=== PATIENT | male | born 1975 | race Caucasian/White ===

== ENCOUNTER 2020-09-02 12:25 | Outpatient (REF) | payer MEDICAID, SELFPAY ==
[2020-09-02 13:22] LABS: MANUAL DIFF FLAG NO
[2020-09-02 13:23] LABS: Basophils Absolute Auto 0.1 X10*3/uL (0.0-0.2); Eosinophils Absolute Auto 0.3 X10*3/uL (0.0-0.4); Eosinophils Percent Auto 3.7 % (0-4); Hematocrit 46.3 % (42-52); Hemoglobin 15.7 g/dl (14.0-18.0); Imm Gran Abs Auto 0.06 X10*3/uL (0.00-0.03); Imm Gran Pct Auto 0.7 % (0.0-0.4); Lymphocytes Absolute Auto 1.2 X10*3/uL (1.2-4.9); Mean Corpuscular HGB Conc 33.9 g/dl (31.0-36.0); Mean Corpuscular Hemoglobin 29.3 pg (27.0-33.0); Mean Corpuscular Volume 86.4 fL (80-98); Mean Platelet Volume 10.2 fL (9.4-12.4); Monocytes Absolute Auto 0.6 X10*3/uL (0.1-1.2); Monocytes Percent Auto 7.2 % (2-11); Neutrophils Absolute Auto 5.9 X10*3/uL (2.0-8.3); Neutrophils Percent Auto 72.4 % (45-73); Platelet Count 323 X10*3/uL (160-400); Red Blood Count 5.36 X10*6/uL (4.60-5.80); Red Cell Distribution Width 12.8 % (11.0-16.0); White Blood Count 8.1 X10*3/uL (4.8-10.8)
[2020-09-02 13:37] LABS: Estimated Average Glucose 100 mg/dL; Hemoglobin A1C 130.0787 umol/L; Hemoglobin A1c % 5.1 %
[2020-09-02 13:55] LABS: Alanine Aminotransferase 32 U/L (0-40); Albumin Level 4.5 g/dL (3.5-5.0); Alkaline Phosphatase 86 U/L (39-117); Anion Gap 18 (12-20); Aspartate Amino Transferase 25 U/L (5-37); Blood Urea Nitrogen 23 mg/dL (9-16); Calcium 9.8 mg/dL (8.4-10.2); Carbon Dioxide 26 mmol/L (22-29); Chloride 102 mmol/L (96-108); Estimated Glomerular Filt Rate > 60; Glucose Random 97 mg/dL (60-115); Potassium 4.1 mmol/L (3.3-5.1); Sodium 142 mmol/L (135-145); Total Protein 7.6 g/dL (6.5-8.0)
== END 2020-09-02 12:26 | disposition home or self-care (01) ==
LOC: HO.10HDL 12:25
PROVIDERS: Visit Provider Internal Medicine
DX: E84.9 Cystic fibrosis, unspecified (principal); I10 Essential (primary) hypertension; R73.03 Prediabetes
CPT/HCPCS: 36415; 80053; 83036; 85025

== ENCOUNTER 2020-09-24 16:05 | Outpatient (REF) | payer MEDICAID, SELFPAY ==
[2020-09-24 17:09] LABS: Anion Gap 13 (12-20); Blood Urea Nitrogen 25 mg/dL (9-16); C Reactive Protein 2.96 mg/dL (< or = 0.50); Calcium 9.3 mg/dL (8.4-10.2); Carbon Dioxide 29 mmol/L (22-29); Chloride 104 mmol/L (96-108); Estimated Glomerular Filt Rate > 60; Glucose Random 113 mg/dL (60-115); Potassium 3.6 mmol/L (3.3-5.1); Sodium 142 mmol/L (135-145)
[2020-09-24 17:22] LABS: Uric Acid 9.1 mg/dL (3.4-7.0)
[2020-09-24 17:23] LABS: Erythrocyte Sedimentation Rate 23 MM/HR (0-15)
[2020-09-24 17:29] LABS: Vitamin D 25-OH Total 42.7 ng/mL (>30)
== END 2020-09-24 16:06 | disposition home or self-care (01) ==
LOC: HO.LAB 16:05
PROVIDERS: PCP Internal Medicine; Visit Provider Internal Medicine
DX: M25.521 Pain in right elbow (principal); M25.421 Effusion, right elbow; I10 Essential (primary) hypertension; E55.9 Vitamin D deficiency, unspecified; Z87.39 Personal history of other diseases of the musculoskeletal system and connective tissue
CPT/HCPCS: 36415; 80048; 82306; 84550; 85652; 86140

== ENCOUNTER 2022-09-02 16:13 | Outpatient (REF) | payer MEDICAID, SELFPAY ==
--- NOTE | ~2022-09-02 | XR_ITS ---
EXAMINATION: XR SHOULDER, LEFT CLINICAL INFORMATION: Pain COMPARISON: None available. TECHNIQUE: AP external rotation, Grashey, scapular Y, and axillary views of the left shoulder. FINDINGS: Bone alignment is normal. No fracture or dislocation. Normal joint spaces. Small undersurface acromial osteophyte. Mild degenerative changes of the greater tuberosity. Normal soft tissues. XR/XR shoulder LT min 2V IMPRESSION: Small undersurface acromial osteophyte and degenerative changes of the greater tuberosity.
== END 2022-09-02 16:14 | disposition home or self-care (01) ==
LOC: HO.XRAY 16:13
PROVIDERS: Visit Provider Internal Medicine
DX: M25.512 Pain in left shoulder (principal)
CPT/HCPCS: 73030

== ENCOUNTER 2022-09-16 16:48 | Outpatient (REF) | payer MEDICAID, SELFPAY ==
[2022-09-16 17:06] LABS: MANUAL DIFF FLAG NO
[2022-09-16 18:04] LABS: Basophils Absolute Auto 0.1 X10*3/uL (0.0-0.2); Basophils Percent Auto 0.6 % (0-2); Eosinophils Absolute Auto 0.2 X10*3/uL (0.0-0.4); Eosinophils Percent Auto 1.1 % (0-4); Hematocrit 47.1 % (42.0-52.0); Hemoglobin 15.7 g/dl (14.0-18.0); Imm Gran Abs Auto 0.07 X10*3/uL (0.00-0.03); Imm Gran Pct Auto 0.5 % (0.0-0.4); Lymphocytes Absolute Auto 0.8 X10*3/uL (1.2-4.9); Lymphocytes Percent Auto 5.9 % (20-40); Mean Corpuscular HGB Conc 33.3 g/dl (31.0-36.0); Mean Corpuscular Hemoglobin 28.9 pg (27.0-33.0); Mean Corpuscular Volume 86.6 fL (80.0-98.0); Mean Platelet Volume 10.1 fL (9.4-12.4); Monocytes Absolute Auto 0.9 X10*3/uL (0.1-1.2); Monocytes Percent Auto 6.6 % (2-11); Neutrophils Absolute Auto 11.9 x10*3/uL (2.0-8.3); Neutrophils Percent Auto 85.3 % (45-73); Platelet Count 263 X10*3/uL (160-400); Red Blood Count 5.44 X10*6/uL (4.60-5.80); Red Cell Distribution Width 12.9 % (11.0-16.0)
[2022-09-16 18:34] LABS: B Type Natriuretic Peptide 24 pg/mL (<100)
[2022-09-16 18:35] LABS: Alanine Aminotransferase 37 U/L (0-40); Albumin Level 4.1 g/dL (3.5-5.0); Alkaline Phosphatase 88 U/L (39-117); Anion Gap 16 (12-20); Aspartate Amino Transferase 22 U/L (5-37); Bilirubin Total 1.3 mg/dL (0.0-1.0); Blood Urea Nitrogen 20 mg/dL (9-16); C Reactive Protein 1.24 mg/dL (< or = 0.50); Calcium 9.4 mg/dL (8.4-10.2); Carbon Dioxide 25 mmol/L (22-29); Chloride 103 mmol/L (96-108); Estimated Glomerular Filt Rate > 60; Glucose Random 92 mg/dL (60-115); Potassium 3.8 mmol/L (3.3-5.1); Sodium 140 mmol/L (135-145); Total Protein 6.8 g/dL (6.5-8.0); Troponin-I High Sensitivity 14.6 ng/L (<3.5-35.0)
[2022-09-16 18:57] LABS: Free T4 (Free Thyroxine) 1.14 ng/dL (0.71-1.85); Thyroid Stimulating Hormone 1.47 uIU/mL (0.32-4.0); Vitamin B12 1217 pg/mL (200-900)
== END 2022-09-16 16:49 | disposition home or self-care (01) ==
LOC: HO.LAB 16:48
PROVIDERS: PCP Internal Medicine; Visit Provider Internal Medicine
DX: I10 Essential (primary) hypertension (principal); R53.83 Other fatigue
CPT/HCPCS: 36415; 80053; 82607; 83880; 84439; 84443; 84484; 85025; 86140

== ENCOUNTER → 2022-10-26 12:03 | Outpatient (BNVA) | payer MEDICAID, SELFPAY | PROVIDERS: PCP Internal Medicine; Visit Provider Physician Assistant | DX: M75.82 Other shoulder lesions, left shoulder (principal) | CPT/HCPCS: 99202 ==

== ENCOUNTER 2023-12-13 14:18 | Outpatient (REF) | payer MEDICAID, SELFPAY ==
--- NOTE | ~2023-12-13 | XR_ITS ---
EXAMINATION: XR CHEST CLINICAL INFORMATION: Cough. Pneumonia. COMPARISON: 03/07/2018 TECHNIQUE: 2 views of the chest were obtained. FINDINGS: Lungs hyperaerated. Heart size normal with normal caliber pulmonary vessels. Prominent but somewhat chronic appearing interstitial markings are noted. There may be an element of bronchial wall thickening or bronchiectasis present but overall, given differences in technique, no significant change. No acute consolidations. XR/XR chest 2V IMPRESSION: Changes observed. No active disease.
[2023-12-13 15:32] LABS: Influenza A PCR NEGATIVE (Negative); Influenza B PCR NEGATIVE (Negative); Resp Syncy Virus RNA Qual PCR NEGATIVE (Negative); SARS COV2 PCR INHOUSE NEGATIVE (Negative)
== END 2023-12-13 14:19 | disposition home or self-care (01) ==
LOC: HO.LAB 14:18
PROVIDERS: PCP Internal Medicine; Visit Provider Internal Medicine
DX: R05.9 Cough, unspecified (principal); R09.81 Nasal congestion
CPT/HCPCS: 0241U; 71046

== ENCOUNTER 2024-11-18 14:41 | Emergency (ER) | payer MEDICAID, SELFPAY ==
--- NOTE | ~2024-11-18 | XR_ITS ---
EXAMINATION: XR HAND 1-2 VIEWS RIGHT HISTORY: pain, swelling COMPARISON: There are no prior studies available for comparison. FINDINGS: Three views of the right hand are submitted. Osseous mineralization is normal. There is no fracture or dislocation. The joint spaces are preserved. There is diffuse soft tissue swelling. XR/XR hand RT 2V IMPRESSION: Diffuse soft tissues on. No osseous abnormality is identified. Electronically signed by: John Mcknight MD 11/18/2024 03:29 PM EDT
[2024-11-18 14:44] VITALS: BP 197/121; PULSE 104; RESP 16; TEMP 36.8; O2SAT 96; BMI 29.9
[2024-11-18 15:07] LABS: MANUAL DIFF FLAG NO
[2024-11-18 15:12] LABS: Hematocrit 40.6 % (42.0-52.0); Hemoglobin 14.5 g/dl (14.0-18.0); Imm Gran Abs Auto 0.04 X10*3/uL (0.00-0.03); Imm Gran Pct Auto 0.3 % (0.0-0.4); Lymphocytes Absolute Auto 0.9 X10*3/uL (1.2-4.9); Mean Corpuscular HGB Conc 35.7 g/dl (31.0-36.0); Mean Corpuscular Hemoglobin 29.5 pg (27.0-33.0); Mean Corpuscular Volume 82.5 fL (80.0-98.0); NRBC Abs Auto 0.000 X10*3/uL (0.0-0.012); NRBC Pct Auto 0.0 /100WBC (0.0-0.2); Platelet Count 251 X10*3/uL (160-400); Red Blood Count 4.92 X10*6/uL (4.60-5.80); White Blood Count 12.0 X10*3/uL (4.8-10.8)
[2024-11-18 15:29] LABS: Alanine Aminotransferase 24 U/L (0-40); Albumin Level 4.2 g/dL (3.5-5.0); Alkaline Phosphatase 77 U/L (39-117); Anion Gap 14 (12-20); Aspartate Amino Transferase 26 U/L (5-37); Blood Urea Nitrogen 20 mg/dL (9-16); Calcium 9.0 mg/dL (8.4-10.2); Carbon Dioxide 26 mmol/L (22-29); Chloride 102 mmol/L (96-108); Creatinine Clr Calc Pharmacy 63.4; Estimated Glomerular Filt Rate 54; Potassium 3.3 mmol/L (3.3-5.1); Sodium 139 mmol/L (135-145); Total Protein 6.9 g/dL (6.5-8.0); Uric Acid 10.4 mg/dL (3.4-7.0)
--- NOTE | 2024-11-18 19:06 | ED.GENADULT ---
HPI - General Adult General Chief complaint: Extremity Problem Stated complaint: R hand/arm swelling no injury Time Seen by Provider: 11/18/24 18:18 Source: patient Limitations: no limitations History of Present Illness ED Provider: Amirah Suazo PA-C HPI narrative: 49-year-old male with a history of gout, hypertension, who presents with right hand and wrist swelling and pain times 2-3 days. Denies trauma or overuse injury. Denies fever. Denies inability to flex or extend from the wrist, although it is limited secondary to pain. Patient feels as if his discomfort is consistent with prior gout flares. Related Data Home Medications ?Medication ?Instructions ?Recorded ?Confirmed albuterol sulfate 90 mcg/actuation 0 mcg inhalation 10/26/22 aerosol inhaler (Ventolin HFA) budesonide-formoterol HFA 160 2 puff inhalation BID 10/26/22 mcg-4.5 mcg/actuation aerosol inhaler (Symbicort) cholecalciferol (vitamin D3) 25 25 mcg PO DAILY 10/26/22 mcg (1,000 unit) capsule hydralazine 50 mg tablet 50 mg PO BID 10/26/22 losartan 50 mg tablet 50 mg PO BID 10/26/22 metoprolol succinate 25 mg 25 mg PO DAILY 10/26/22 tablet,extended release 24 hr Previous Rx's ?Medication ?Instructions ?Recorded doxycycline hyclate 100 mg capsule 100 mg PO BID #13 caps 11/18/24 indomethacin 50 mg capsule 50 mg PO TID #15 caps 11/18/24 Allergies Allergy/AdvReac Type Severity Reaction Status Date / Time guaifenesin (From Allergy Unknown HIVES Verified 11/18/24 14:49 ROBITUSSIN-DM) ciprofloxacin (From Cipro) Allergy Hives Verified 11/18/24 14:49 From KEFLEX Allergy Unknown HIVES Uncoded 10/26/22 12:27 From ROBITUSSIN-DM Allergy Unknown HIVES Uncoded 10/26/22 12:27 Review of Systems Review of Systems: Yes all other systems are reviewed and are negative Constitutional: Constitutional: Denies fatigue and Denies fever(s) Cardiovascular: Cardiovascular: Denies chest pain and Denies dyspnea Respiratory: Respiratory: Denies dyspnea Gastrointestinal: Gastrointestinal: Denies abdominal pain Musculoskeletal: Musculoskeletal: Reports arthralgias and Reports joint swelling Integumentary/Breasts: Skin/Breast: Reports erythema and Denies wounds Endocrine: Endocrine: Denies fatigue PMF Past Medical History Attestation statement: The following information was validated with the patient. 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[employer] Physical Exam ED Vital Signs: Vital Signs - 24 hr 11/18/24 14:44 Temperature 98.3 F Pulse Rate 104 H Respiratory Rate 16 Blood Pressure 197/121 H Pulse Oximetry 96 Oxygen Delivery Method Room Air BMI result Body Mass Index 29.9 Const Other: Alert well-appearing Orientation/consciousness: patient oriented x3 Resp Effort & Inspection: normal respiratory effort Cardio Other: Normal peripheral perfusion Skin Other: Warm dry no rash Neuro General: patient oriented x3, gait normal, no focal motor deficits and CN's II-XI intact bilaterally Extrem Other: Patient able to flex and extend at the right wrist, however it is limited secondary to pain. The wrist is objectively swollen, warm and erythematous no overlying wound Psych Other: Calm cooperative Medications Administered Discontinued Medications Generic Name Dose Route Start Last Admin Trade Name Freq PRN Reason Stop Dose Admin Cephalexin HCl 500 mg 11/18/24 19:18 11/18/24 20:01 Cephalexin 500 Mg Capsule PO 11/18/24 19:19 Not Given ONCE ONE Medical Decision Making Medical Decision Making MDM Narrative: 49-year-old male with a history of gout, hypertension, who presents with right hand and wrist swelling and pain times 2-3 days. Denies trauma or overuse injury. Denies fever. Denies inability to flex or extend from the wrist, although it is limited secondary to pain. Patient feels as if his discomfort is consistent with prior gout flares. Problem: Gout History: Per patient I have considered the following differential diagnoses: Gout flare, cellulitis, septic arthritis/effusion, fracture, dislocation Plan: Screening labs including a uric acid were ordered from triage, the uric acid is level. The patient also has a subtle leukocytosis. X-rays obtained, there was no discrete effusion. He is able to flex and extend to some degree, I do not have concern for septic arthritis, and he also does not have significant concurrent arthritic changes. The plan is to cover for overlying cellulitis with doxycycline given his allergy profile, and start him on indomethacin. He can follow up with primary care as needed. I have independently reviewed the following tests: Labs: Slight leukocytosis, not anemic, no electrolyte abnormality, uric acid is elevated X-ray hand:FINDINGS: Three views of the right hand are submitted. Osseous mineralization is normal. There is no fracture or dislocation. The joint spaces are preserved. There is diffuse soft tissue swelling. XR/XR hand RT 2V IMPRESSION: Diffuse soft tissues on. No osseous abnormality is identified. Lab Data 11/18/24 15:03 11/18/24 15:03 Labs: Lab Results 11/18/24 Range/Units 15:03 WBC 12.0 H (4.8-10.8) X10*3/uL RBC 4.92 (4.60-5.80) X10*6/uL Hgb 14.5 (14.0-18.0) g/dl Hct 40.6 L (42.0-52.0) % MCV 82.5 (80.0-98.0) fL MCH 29.5 (27.0-33.0) pg MCHC 35.7 (31.0-36.0) g/dl RDW 12.6 (11.0-16.0) % Plt Count 251 (160-400) X10*3/uL MPV 10.0 (9.4-12.4) fL Immature Gran % (Auto) 0.3 (0.0-0.4) % Neut % (Auto) 85.3 H (45-73) % Lymph % (Auto) 7.4 L (20-40) % [place] % (Auto) 5.6 (2-11) % Eos % (Auto) 1.0 (0-4) % Baso % (Auto) 0.4 (0-2) % Lymph # (Auto) 0.9 L (1.2-4.9) X10*3/uL [place] # (Auto) 0.7 (0.1-1.2) X10*3/uL Eos # (Auto) 0.1 (0.0-0.4) X10*3/uL Baso # (Auto) 0.1 (0.0-0.2) X10*3/uL Abs Immat Gran (auto) 0.04 H (0.00-0.03) X10*3/uL Absolute Neuts (auto) 10.3 H (2.0-8.3) x10*3/uL Absolute Nucleated RBC 0.000 (0.0-0.012) X10*3/uL Nucleated RBC % (auto) 0.0 (0.0-0.2) /100WBC Sodium 139 (135-145) mmol/L Potassium 3.3 (3.3-5.1) mmol/L Chloride 102 (96-108) mmol/L Carbon Dioxide 26 (22-29) mmol/L Anion Gap 14 (12-20) BUN 20 H (9-16) mg/dL Creatinine 1.40 (0.5-1.4) mg/dL Estim Creat Clear Calc 63.4 Estimated GFR 54 Random Glucose 184 H (60-115) mg/dL Uric Acid 10.4 H (3.4-7.0) mg/dL Calcium 9.0 (8.4-10.2) mg/dL Total Bilirubin 1.8 H (0.0-1.0) mg/dL AST 26 (5-37) U/L ALT 24 (0-40) U/L Alkaline Phosphatase 77 (39-117) U/L Total Protein 6.9 (6.5-8.0) g/dL Albumin 4.2 (3.5-5.0) g/dL Discharge Plan Discharge Clinical Impression: Cellulitis, Acute gout of right wrist Patient Disposition: Home, Self-Care Instructions: Cellulitis (ED), Low Purine Diet (ED), Gout (ED) Additional Instructions: We are treating you for a suspect gout flare. I am also covering you for suspect cellulitis. See home care instructions. Be sure to complete the course of doxycycline this is an antibiotic. Use the indomethacin as needed for your discomfort. Take it with food. Follow up with your primary care provider as needed. Prescriptions: New doxycycline hyclate 100 mg capsule 100 mg PO BID Qty: 13 0RF indomethacin 50 mg capsule 50 mg PO TID Qty: 15 0RF Rx Instructions: administer with food or milk No Action albuterol sulfate [Ventolin HFA] 90 mcg/actuation HFA aerosol inhaler 0 mcg inhalation losartan 50 mg tablet 50 mg PO BID budesonide-formoterol [Symbicort] 160-4.5 mcg/actuation HFA aerosol inhaler 2 puff inhalation BID hydralazine 50 mg tablet 50 mg PO BID cholecalciferol (vitamin D3) 25 mcg (1,000 unit) capsule 25 mcg PO DAILY metoprolol succinate 25 mg tablet extended release 24 hr 25 mg PO DAILY Print Language: Italian
[2024-11-18 20:21] VITALS: BP 221/130; PULSE 79; RESP 16; TEMP 36.7; O2SAT 98
--- NOTE | 2024-11-18 20:22 | PC.NURSE ---
patient BP elevated. states he hasn't taken his meds in 3 days. Summer SINGH aware and ok with patient to go home as he is agreeable to take his meds when he goes home. patient dc instructions reviewed with patient
[2024-11-18 20:23] VITALS: BP 221/130; PULSE 79; RESP 16; TEMP 36.7; O2SAT 98
== END 2024-11-18 20:23 | disposition home or self-care (01) ==
PROVIDERS: Emergency Provider Emergency Medicine; PCP Internal Medicine
DX: M10.031 Idiopathic gout, right wrist (principal); L03.113 Cellulitis of right upper limb; I10 Essential (primary) hypertension; Z79.899 Other long term (current) drug therapy
CPT/HCPCS: 36415; 73120; 80053; 84550; 85025; 99283; 99284

== ENCOUNTER → 2024-11-18 15:14 | Outpatient (BNV) | payer MEDICAID, SELFPAY | PROVIDERS: PCP Internal Medicine; Visit Provider Radiology Diagnostic Radiology | DX: M79.641 Pain in right hand (principal); R22.31 Localized swelling, mass and lump, right upper limb | CPT/HCPCS: 73120 ==

== ENCOUNTER 2024-12-30 12:43 | Inpatient (IN) | payer MEDICAID, SELFPAY ==
--- NOTE | ~2024-12-30 | FL_ITS ---
EXAMINATION: Possibly guided right wrist joint aspiration. CLINICAL INDICATION: Gout. Arthritis. COMPARISON: MR wrist 12/31/2024 TECHNIQUE: Following explaining fluoroscopy guided right wrist joint aspiration procedure, benefits and risk, a written consent was obtained. Patient was placed prone on with head extended and palm down on fluoroscopy table. The radioscaphoid joint was identified and a marker placed along the dorsum of the wrist with a marker. The marked site was cleaned and draped in usual sterile manner. 1% lidocaine was injected at puncture site. A short 25-gauge needle was advanced under fluoroscopy and the radius scaphoid joint. A syringe was attached to the needle and no fluid could be aspirated. 2 mL of saline was injected into the joint and the joint was aspirated again. A red-tinged fluid was aspirated from the joint. Postprocedure needle was withdrawn and complete hemostasis achieved at puncture site. Sterile Band-Aid applied postprocedure. FINDINGS/ FL/FL Guided Asp or Inj Med Jt RT IMPRESSION: On preliminary imaging the intercarpal, radial ulnar carpal joint spaces are maintained normal. 2 mL of fluid was aspirated in ascending and sent to cytology for evaluation of gout or inflammatory arthritis. Fluoroscopy time: 58 seconds. The dose area product 122.7 mGy/cm. Electronically signed by: Kishore Barba MD 01/02/2025 02:55 PM EDT
--- NOTE | ~2024-12-30 | MR_ITS ---
EXAMINATION: MR WRIST WITHOUT AND WITH CONTRAST, RIGHT TECHNIQUE: Multiplanar - multisequence MR imaging through an upper extremity joint, right wrist, was performed without and with IV contrast Contrast: 80 mL Gadavist INDICATION: Wrist swelling and redness, focal osteopenia involving triquetrum on x-ray performed one day earlier PRIOR: X-rays December 29, 201901/10 and 08/18/2018 FINDINGS: Triangular fibrocartilage complex: There is focal separation between the ventricular femoral cartilage and sigmoid notch of radius on the carpal side extending through most of the disc. It appears intact on the ulnar side. Intrinsic wrist ligaments: There is increased signal in the membranous and volar portion of the scapholunate ligament consistent with degeneration/partial tear. Dorsal spine is grossly intact. Fluid signal traverses lunotriquetral ligament on the triquetral side consistent with a tear. Extensor compartments: Extensor tendons are intact. There is trace fluid within the tendon sheath of the second and encircling fluid involving the fourth extensor compartment. Flexor tendons: Flexor tendons are intact. Carpal tunnel and Guyon's canal: Carpal tunnel and Guyon's canal structures are unremarkable. Bones/Marrow: Abnormal marrow signal is present along the central and ulnar side of the triquetrum. There is decreasing on T1 imaging and increased signal on fluid sensitive sequences with concordant enhancement. There is evidence of cortical erosion along the superficial surface. There are subtle signal changes in the periarticular portions of pisiform with mildly increased signal on fluid sensitive sequences and concordant enhancement. There is very subtle 10 no decreased signal on T1 imaging. There are similar signal changes involving the dorsal greater than volar aspects of the lunate. Scaphoid demonstrates mild high signal change on STIR sequences through the waist region and along the radial aspect with minimal T1 signal changes and mild to moderate enhancement. The lateral aspect of the capitate there is trace amount decreasing on T1 imaging, increased signal on STIR sequences, and hyperenhancement. Soft tissues: There is a complex effusion throughout the carpus with hyperenhancement and thickening of the synovium. There is moderate edema without hyperenhancement involving the subcutaneous soft tissues in the dorsum of the wrist and base of the hand. MR/MR wrist RT wo/w con IMPRESSION: There is evidence of a sen-carpal active synovitis with marrow edema and erosive changes most pronounced in triquetrum. The appearance is suspicious for an active inflammatory arthropathy such as rheumatoid arthritis, but septic arthritis and osteomyelitis is not ruled out. There is also evidence of mild tenosynovitis involving the fourth greater than second extensor compartments. Electronically signed by: Mansoor Hatfield MD 12/31/2024 01:22 PM EDT
--- NOTE | ~2024-12-30 | XR_ITS ---
EXAMINATION: XR WRIST, RIGHT XR HAND, RIGHT CLINICAL INFORMATION: wrist swelling and redness. ostoe? COMPARISON: 11/18/2024. TECHNIQUE: PA, lateral, oblique, and scaphoid views of the right wrist. 3 views of the right hand. FINDINGS: No fracture or dislocation. There is normal alignment. There are subtle changes of focal osteopenia within the triquetrum. No gross permeative bony change or periostitis present. There is dorsal soft tissue swelling of the wrist and hand. XR/XR wrist RT min 3V IMPRESSION: Soft tissue swelling of the dorsum of the wrist and hand. Subtle changes of focal osteopenia within the triquetrum, a very subtle finding which could represent early changes of osteomyelitis. Electronically signed by: Gabino Cain MD 12/30/2024 01:49 PM EDT
--- NOTE | ~2024-12-30 | XR_ITS ---
EXAMINATION: XR WRIST, RIGHT XR HAND, RIGHT CLINICAL INFORMATION: wrist swelling and redness. ostoe? COMPARISON: 11/18/2024. TECHNIQUE: PA, lateral, oblique, and scaphoid views of the right wrist. 3 views of the right hand. FINDINGS: No fracture or dislocation. There is normal alignment. There are subtle changes of focal osteopenia within the triquetrum. No gross permeative bony change or periostitis present. There is dorsal soft tissue swelling of the wrist and hand. XR/XR hand RT 2V IMPRESSION: Soft tissue swelling of the dorsum of the wrist and hand. Subtle changes of focal osteopenia within the triquetrum, a very subtle finding which could represent early changes of osteomyelitis. Electronically signed by: Gabino Cain MD 12/30/2024 01:49 PM EDT
[2024-12-30 13:14] VITALS: BP 176/106; PULSE 79; RESP 16; TEMP 36.8; O2SAT 98; BMI 28.9
--- NOTE | 2024-12-30 13:31 | ED_ITS ---
HPI - General Adult General Chief complaint: Extremity Problem Stated complaint: R hand swollen Time Seen by Provider: 12/30/24 16:55 Source: patient Mode of arrival: ambulatory Limitations: no limitations History of Present Illness ED Provider: Dr. Karely Youssef HPI narrative: Patient comes to the emergency room complaining of right wrist pain. Patient states that 1 month ago he came complaining of the same, right wrist pain, swelling, warmth. Patient was diagnosed with gout. Patient was discharged with in the med the sane and doxycycline. Patient states that initially he was doing well but shortly after he finished his course of medications, patient started having recurrent symptoms. Patient denies fever chills. Patient states that now his wrist hurts quite a bit. He is still able to flex and extend but hurts doing so. Patient denies any injuries. Patient states in the past he has had gout problems but a usually he will we dose medications, it has never lasted this long Related Data Home Medications ?Medication ?Instructions ?Recorded ?Confirmed albuterol sulfate 90 mcg/actuation 2 puff inhalation Q 6H PRN 10/26/22 12/30/24 aerosol inhaler (Ventolin HFA) Shortness Of Breath Or Wheezing budesonide-formoterol HFA 160 2 puff inhalation BID 12/30/24 mcg-4.5 mcg/actuation aerosol inhaler (Symbicort) cholecalciferol (vitamin D3) 25 25 mcg PO DAILY 12/30/24 mcg (1,000 unit) capsule hydralazine 50 mg tablet 50 mg PO BID 10/26/22 losartan 50 mg tablet 50 mg PO BID 10/26/22 metoprolol succinate 25 mg 25 mg PO DAILY 10/26/22 tablet,extended release 24 hr bupropion HCl 150 mg 24 hr tablet, 150 mg PO DAILY PRN Anxiety 12/30/24 12/30/24 extended release clonidine HCl 0.1 mg tablet 0.1 mg PO DAILY PRN Anxiet y 12/30/24 12/30/24 magnesium 250 mg tablet 125 mg PO BEDTIME PRN Sleep 12/30/24 12/30/24 mirtazapine 7.5 mg tablet 7.5 mg PO BEDTIME PRN Sleep 12/30/24 12/30/24 multivitamin 1 tab PO DAILY 12/30/2412/13 Allergies Allergy/AdvReac Type Severity Reaction Status Date / Time guaifenesin (From Allergy Unknown HIVES Verified 12/30/24 13:17 ROBITUSSIN-DM) ciprofloxacin (From Cipro) Allergy Hives Verified 12/30/24 13:17 From KEFLEX Allergy Unknown HIVES Uncoded 10/26/22 12:27 From ROBITUSSIN-DM Allergy Unknown HIVES Uncoded 10/26/22 12:27 Review of Systems 2 Review of Systems: Constitutional : No Weight loss, No Fever, No Chills, No Night Sweats, No Fatigue, No Malaise ENT/Mouth : No Hearing loss, No Ear Pain, No Nasal Congestion, No Sinus Pain, No Hoarseness, No sore throat, No Rhinorrhea, No Swallowing Difficulty Eyes: No Eye Pain, No Swelling, No Redness, No Foreign Body, No Discharge, No Vision Changes Cardiovascular : No Chest Pain, No SOB, No Dyspnea on Exertion, No Orthopnea, No Edema, No Palpitations Respiratory : No Cough, No Sputum, No Wheezing, No Smoke Exposure, No Dyspnea Gastrointestinal : No Nausea, No Vomiting, No Diarrhea, No Constipation, No abdominal Pain, No Hematochezia, No Melena Genitourinary : no irregular bleeding, No Dysuria, No Urinary Frequency, No Hematuria, No Urinary Incontinence, No Urgency, No Flank Pain, No Urinary Flow Changes, No Hesitancy Musculoskeletal : Complaining of right wrist pain, swelling, warmth to touch Skin : No Skin Lesions, No rash Neuro : No Weakness, No Numbness, No Paresthesias, No Loss of Consciousness, No Dizziness, No Headache Psych : No Anxiety/Panic, No Depression, No SI/HI/AH/VH, No Social Issues, Heme/Lymph: No Bruising, No Bleeding,No Lymphadenopathy Endocrine : No Polyuria, No Polydipsia, No Temperature Intolerance [facility] Past Medical History Medical History Pancreatitis Gout Cystic fibrosis High blood pressure Social History Social History Household Members: Family Housing: House Do you presently have visiting nurse or other home services: No Patient Tobacco Use Status: Never used Tobacco Currently Displaying Signs/Symptoms of Drug Intoxication Withdrawal: No Have you been hit, kicked, punched, or otherwise hurt by someone within the past year? 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 Oriented X3. No acute distress. Eyes: Pupils equal, round and reactive to light. ENT: Pharynx normal. Neck: Normal inspection. Neck supple. No lymph nodes noted. No crepitus CVS: Normal heart rate and rhythm. Pulses normal. Normal S1 and S2 Respiratory: No respiratory distress. Breath sounds normal. No Wheezing. No rales Abdomen: Soft and nontender. No rigidity. No distention. Skin: Skin warm and dry. Normal skin color. Normal skin turgor. Extremities: Right wrist is slightly erythematous, painful to touch, there is swelling around the right wrist. Patient is able to flex and extend the wrist but hurts doing so. No Lacerations. No Rash Neuro: Oriented X 3. No motor deficit. No sensory deficit. Moving all extremities. No slurred speech. CN 2 through 12 grossly intact Psych: calm, cooperative, normal affect Vital Signs: Vital Signs - 24 hr 12/30/24 13:14 12/30/24 18:11 12/30/24 18:13 Temperature 98.3 F Pulse Rate 79 64 Respiratory Rate 16 18 Blood Pressure 176/106 H 215/125 H 196/109 H Pulse Oximetry 98 98 Oxygen Delivery Method Room Air Room Air BMI result Body Mass Index 28.9 Course Course Course Narrative: RME: 49 yold male presents to the ED for right wrist pain for a month due to gout. patient states mild relief with meds. positive for right wrist redness/pain. no stiffness. labs, xray ordered. Medications Administered Generic Name Dose Route Start Last Admin Trade Name Freq PRN Reason Stop Dose Admin Bupropion HCl 150 mg 12/30/24 21:37 12/31/24 09:00 Bupropion Hcl Xl 150 Mg Tab.Er.24h PO 150 mg DAILY PRN Administration Anxiety Clonidine HCl 0.1 mg 12/30/24 21:37 12/31/24 09:00 Clonidine Hcl 0.1 Mg Tablet PO 0.1 mg DAILY PRN Administration Anxiety Protocol Enoxaparin Sodium 40 mg 12/30/24 20:00 12/31/24 20:24 Enoxaparin Sodium 40 Mg/0.4 Ml Syringe SUBCUT Not Given Q24H [facility] Fluticasone/Vilanterol 1 puff 12/31/24 08:00 12/31/24 07:27 Fluticasone/Vilanterol 200/25 Blst.W.Dev INHALE Not Given RDAILY [facility] Hydralazine HCl 50 mg 12/30/24 21:45 12/31/24 20:33 Hydralazine Hcl 50 Mg Tablet PO 50 mg BID DEANNE Administration Protocol Vancomycin HCl 750 mg/ Sodium 265 mls @ 265 mls/hr 12/31/24 09:00 12/31/24 22:15 Chloride IV Infused Q12H DEANNE Infusion Losartan Potassium 50 mg 12/30/24 21:45 12/31/24 20:33 Losartan Potassium 50 Mg Tablet PO 50 mg BID DEANNE Administration Protocol Metoprolol Succinate 25 mg 12/31/24 09:00 12/31/24 09:00 Metoprolol Succinate Er 25 Mg Tab.Er.24h PO 25 mg DAILY DEANNE Administration Protocol Multivitamins/Vitamin C 1 tab 12/31/24 09:00 12/31/24 09:00 Multivitamin Tablet PO 1 tab DAILY DEANNE Administration Sodium Chloride 3 ml 12/31/24 00:00 12/31/24 20:41 0.9 % Sodium Chloride Flush 3 Ml Syringe IVFLUSH 3 ml QSHIFT DEANNE Administration Vitamin D 25 mcg 12/31/24 09:00 12/31/24 09:00 Cholecalciferol (Vitamin D3) 25 Mcg Tablet PO 25 mcg DAILY DEANNE Administration Discontinued Medications Generic Name Dose Route Start Last Admin Trade Name Freq PRN Reason Stop Dose Admin Gadobutrol 10 ml 12/31/24 12:09 12/31/24 12:10 Gadobutrol 10 Ml Vial IVPUSH 12/31/24 12:10 8 ml ONCE ONE Administration Vancomycin HCl 2,000 mg in 500 mls @ 250 mls/hr 12/30/24 20:45 12/30/24 23:25 Vancomycin/Ns IV 12/30/24 22:44 Infused ONCE ONE Infusion Indomethacin 50 mg 12/30/24 21:37 12/31/24 00:00 Indomethacin 25 Mg Capsule PO 12/30/24 21:38 Not Given ONCE ONE Medical Decision Making Medical Decision Making [facility] Narrative: My interpretation of labs: No significant abnormality in patient's hematology and chemistry, ESR and CRP are slightly elevated. Lactic normal, LFT normal X-rays done earlier today shows subtle changes of focal osteopenia within the triquetrum, which may indicate early osteomyelitis. Patient's x-rays findings and labs do not quite match osteomyelitis. I discussed the patient with Dr. Mallory from the medicine team Overall, at patient was recommended also by the medicine team. Patient is upset about having to stay. I discussed with the patient that he is not obligated to stay, it is a recommendation. Patient states that he has obligations at home that need to be taking care of. I discussed with the patient that in no way we are going to obligate him to stay in the hospital, he can always leave against medical advice and come back as soon as possible and then we will get him admitted. Patient states that ?he has no choice and will stay. It was made clear to the patient that he does have a choice Patient receiving vancomycin and Zosyn, fluids Differential Diagnosis Differential Diagnoses: The differential diagnosis associated with the presentation includes (Gout, osteomyelitis, cellulitis) Admission/Observation Consideration of admission/observation: Escalation of care including admission/observation considered Consult Healthcare Provider Management of the patient was discussed with: Hospitalist Lab Data [facility] Lab Attestation statement: I reviewed the patient's lab results. 12/30/24 14:49 12/31/24 05:11 Labs: Lab Results 12/30/24 12/30/24 Range/Units 14:49 14:50 WBC 9.4 (4.8-10.8) X10*3/uL RBC 5.08 (4.60-5.80) X10*6/uL Hgb 14.7 (14.0-18.0) g/dl Hct 42.7 (42.0-52.0) % MCV 84.1 (80.0-98.0) fL MCH 28.9 (27.0-33.0) pg MCHC 34.4 (31.0-36.0) g/dl RDW 12.8 (11.0-16.0) % Plt Count 276 (160-400) X10*3/uL MPV 10.0 (9.4-12.4) fL Immature Gran % (Auto) 0.3 (0.0-0.4) % Neut % (Auto) 78.2 H (45-73) % Lymph % (Auto) 11.3 L (20-40) % [place] % (Auto) 8.0 (2-11) % Eos % (Auto) 1.5 (0-4) % Baso % (Auto) 0.7 (0-2) % Lymph # (Auto) 1.1 L (1.2-4.9) X10*3/uL [place] # (Auto) 0.8 (0.1-1.2) X10*3/uL Eos # (Auto) 0.1 (0.0-0.4) X10*3/uL Baso # (Auto) 0.1 (0.0-0.2) X10*3/uL Abs Immat Gran (auto) 0.03 (0.00-0.03) X10*3/uL Absolute Neuts (auto) 7.4 (2.0-8.3) x10*3/uL Absolute Nucleated RBC 0.000 (0.0-0.012) X10*3/uL Nucleated RBC % (auto) 0.0 (0.0-0.2) /100WBC ESR 34 H (0-15) MM/HR PT 11.6 (10.9-12.4) SEC INR 1.0 (0.9-1.1) APTT 31.2 (26.7-34.1) SEC Sodium 141 (135-145) mmol/L Potassium 3.6 (3.3-5.1) mmol/L Chloride 106 (96-108) mmol/L Carbon Dioxide 25 (22-29) mmol/L Anion Gap 14 (12-20) BUN 22 H (9-16) mg/dL Creatinine 1.32 (0.5-1.4) mg/dL Estim Creat Clear Calc 68.4 Estimated GFR 58 Random Glucose 95 (60-115) mg/dL Lactic Acid 1.5 (0.5-2.0) mmol/L Uric Acid 7.8 H (3.4-7.0) mg/dL Calcium 9.3 (8.4-10.2) mg/dL Total Bilirubin 1.3 H (0.0-1.0) mg/dL AST 24 (5-37) U/L ALT 21 (0-40) U/L Alkaline Phosphatase 89 (39-117) U/L C-Reactive Protein 5.16 H (< or = 0.50) mg/dL Total Protein 7.5 (6.5-8.0) g/dL Albumin 4.4 (3.5-5.0) g/dL Independent Interpretation I performed an independent interpretation of an: Plain X-Ray Radiology Impression Discussion of test interpretation with radiology: I have reviewed the radiologist's reading. Radiologist Impression: No fracture or dislocation. There is normal alignment. There are subtle changes of focal osteopenia within the triquetrum. No gross permeative bony change or periostitis present. There is dorsal soft tissue swelling of the wrist and hand. XR/XR wrist RT min 3V IMPRESSION: Soft tissue swelling of the dorsum of the wrist and hand. Subtle changes of focal osteopenia within the triquetrum, a very subtle finding which could represent early changes of osteomyelitis. Critical Care Time Critical Care Time Critical Care Time: Yes Total Critical Care Time: 60 Attestation: I have personally provided critical care time. Time includes review of lab data, radiology results, discussion with consultants, and monitoring for potential decompensation. Intervention performed as documented. Discharge Plan Discharge Clinical Impression: Osteomyelitis Patient Disposition: Admitted As Inpatient Interventions: Admission Worksheet (ED) Last Done: 12/30/24 20:52 Discharge Date/Time: 12/30/24 21:58
[2024-12-30 14:57] LABS: MANUAL DIFF FLAG NO
[2024-12-30 14:59] LABS: Hematocrit 42.7 % (42.0-52.0); Hemoglobin 14.7 g/dl (14.0-18.0); Imm Gran Abs Auto 0.03 X10*3/uL (0.00-0.03); Imm Gran Pct Auto 0.3 % (0.0-0.4); Lymphocytes Absolute Auto 1.1 X10*3/uL (1.2-4.9); Mean Corpuscular HGB Conc 34.4 g/dl (31.0-36.0); Mean Corpuscular Hemoglobin 28.9 pg (27.0-33.0); Mean Corpuscular Volume 84.1 fL (80.0-98.0); NRBC Abs Auto 0.000 X10*3/uL (0.0-0.012); NRBC Pct Auto 0.0 /100WBC (0.0-0.2); Platelet Count 276 X10*3/uL (160-400); Red Blood Count 5.08 X10*6/uL (4.60-5.80); White Blood Count 9.4 X10*3/uL (4.8-10.8)
[2024-12-30 15:08] LABS: INTERNATIONAL NORM RATIO 1.0 (0.9-1.1); Prothrombin Time 11.6 SEC (10.9-12.4)
[2024-12-30 15:10] LABS: Partial Thromboplastin Time 31.2 SEC (26.7-34.1)
[2024-12-30 15:18] LABS: Alanine Aminotransferase 21 U/L (0-40); Albumin Level 4.4 g/dL (3.5-5.0); Alkaline Phosphatase 89 U/L (39-117); Anion Gap 14 (12-20); Aspartate Amino Transferase 24 U/L (5-37); Blood Urea Nitrogen 22 mg/dL (9-16); Calcium 9.3 mg/dL (8.4-10.2); Carbon Dioxide 25 mmol/L (22-29); Chloride 106 mmol/L (96-108); Creatinine Clr Calc Pharmacy 68.4; Estimated Glomerular Filt Rate 58; Potassium 3.6 mmol/L (3.3-5.1); Sodium 141 mmol/L (135-145); Total Protein 7.5 g/dL (6.5-8.0); Uric Acid 7.8 mg/dL (3.4-7.0)
[2024-12-30 18:11] VITALS: BP 215/125; PULSE 64; RESP 18; O2SAT 98
[2024-12-30 18:13] VITALS: BP 196/109
--- NOTE | 2024-12-30 19:57 | PM.IMHP ---
History of Present Illness Date of Service: 12/30/24 Attending physician on admission: Zina Koorma Chief Complaint: R hand swelling Pt is a 49 yo male with PMH Cystic Fibrosis, HTN, anxiety, insomnia, chronic pancreatitis (first episode as a teenager), gout presents to the ED with ongoign pain, swelling and warmth in R wrist. Pt was seen prior (11/18/24) for same concern and was started on 5 days of ABX and indomethacin with some improvement but now symptoms have worsened and pt is unable to use his right hand for eating or brushing his teeth, being right hand dominant. Work up in ED notes an xray of right wrist with no fracture or dislocation and normal alignment. There are subtle changes of local osteopenia within the triquetrum but no gross permeative bony change or periostitis present. There is dorsal soft tissue swelling of the wrist and hand. The focal osteopenia within the triquetrum could be a subtle finding of early osteomyelitis. Patient does have an elevated ESR and CRP. Lactic acid 1.5. Patient has no current leukocytosis, fever, chills, nausea or vomiting. The right wrist is inflamed, hot to the touch with erythema. The right hand is warm to the touch and patient does have full range of motion. Uric acid level 7.8 and previous level was 10.4 when seen in the ED back in November. Patient is not usually on allopurinol and does not take colchicine for flares. Patient is no longer taking the indomethacin as well. Patient denies use of alcohol, tobacco, marijuana or illicit drugs. Patient being admitted to rule out osteomyelitis of the affected wrist. MRI of the right wrist will be done in the a.m. Patient is started on loading dose of vancomycin and pharmacy is consulted for vancomycin management. Incidentally patient's cystic fibrosis has been well controlled with his current medication regimen. Medication reconciliation pending by pharmacy and once completed we will order patient's usual medications. Patient denies any recent bouts of pancreatitis as well. Review of Systems Review of Systems: Pt denies chest pain, SOB at rest or with exertion, ABD pain, nausea, vomiting, fever, night sweats. Patient states he does have pain in the right wrist especially when trying to use utensils or brushes teeth. Otherwise patient does have full range of motion. Patient denies any swelling in any of his other joints. Yes all other systems are reviewed and are negative [facility] Medical History (Updated 12/30/24 @ 21:31 by JANAY Delacruz) Pancreatitis Gout Cystic fibrosis High blood pressure Cognitive capacity: Alert and orientated x3 Functional capacity: independent ambulation Social History Advance Directives: No Advance Directives Information Provided: No Current occupational status: employed Current occupation: customer service at airport/ rt hand Ebola Risk: Travel/Contact With Anyone From Affected Area/s: No Has Patient Experienced Ebola Symptoms: No Meds Allergies Allergy/AdvReac Type Severity Reaction Status Date / Time guaifenesin (From Allergy Unknown HIVES Verified 12/30/24 13:17 ROBITUSSIN-DM) ciprofloxacin (From Cipro) Allergy Hives Verified 12/30/24 13:17 From KEFLEX Allergy Unknown HIVES Uncoded 10/26/22 12:27 From ROBITUSSIN-DM Allergy Unknown HIVES Uncoded 10/26/22 12:27 Active Medications: Current Medications Acetaminophen (Acetaminophen 325 Mg Tablet) 650 mg PO Q6H PRN PRN Reason: Pain, Mild 1-3,fever,headache Calcium Carbonate (Calcium Carbonate 750 Mg Tab.Chew) 750 mg PO Q4H PRN PRN Reason: Heartburn Enoxaparin Sodium (Enoxaparin Sodium 40 Mg/0.4 Ml Syringe) 40 mg SUBCUT Q24H DEANNE Vancomycin HCl 1,500 mg/ (Sodium Chloride) 500 mls @ 333.333 mls/hr IV ONCE ONE Stop: 12/30/24 20:45 Magnesium Hydroxide (Milk Of Magnesia 30 Ml Oral.Susp) 30 ml PO DAILY PRN PRN Reason: Constipation Melatonin (Melatonin 3 Mg Tablet) 6 mg PO BEDTIME PRN PRN Reason: Insomnia Pharmacy Consult (Consult Rx Vancomycin Dosing) 1 each MISCELLANE DAILY PRN PRN Reason: Consult order Polyethylene Glycol (Polyethylene Glycol 3350 17 Gm Powd.Pack) 17 gm PO DAILY PRN PRN Reason: Constipation Sodium Chloride (0.9 % Sodium Chloride Flush 3 Ml Syringe) 3 ml IVFLUSH QSHIFT [facility] Home Medications ?Medication ?Instructions ?Recorded ?Confirmed ?Last Taken ?Type albuterol sulfate 90 mcg/actuation 2 puff inhalation Q6H PRN 10/26/22 12/30/24 Unknown History aerosol inhaler (Ventolin HFA) Shortness Of Breath Or Wheezing budesonide-formoterol HFA 160 2 puff inhalation BID 10/26/22 12/30/24 12/29/24 History mcg-4.5 mcg/actuation aerosol inhaler (Symbicort) cholecalciferol (vitamin D3) 25 25 mcg PO DAILY 10/26/22 12/30/24 12/30/24 History mcg (1,000 unit) capsule hydralazine 50 mg tablet 50 mg PO BID 10/26/22 12/30/24 12/30/24 History losartan 50 mg tablet 50 mg PO BID 10/26/22 12/30/24 12/30/24 History metoprolol succinate 25 mg 25 mg PO DAILY 10/26/22 12/30/24 12/30/24 History tablet,extended release 24 hr bupropion HCl 150 mg 24 hr tablet, 150 mg PO DAILY PRN Anxiety 12/30/24 12/30/24 Unknown History extended release clonidine HCl 0.1 mg tablet 0.1 mg PO DAILY PRN Anxiety 12/30/24 12/30/24 12/30/24 History magnesium 250 mg tablet 125 mg PO BEDTIME PRN Sleep 12/30/24 12/30/24 Unknown History mirtazapine 7.5 mg tablet 7.5 mg PO BEDTIME PRN Sleep 12/30/24 12/30/24 Unknown History multivitamin 1 tab PO DAILY 12/30/24 12/30/24 12/30/24 History Physical Exam Vital Signs and Narrative: Vital Signs: Last Vital Signs Temp 98.3 F 12/30/24 13:14 Pulse 64 12/30/24 18:11 Resp 18 12/30/24 18:11 BP 196/109 H 12/30/24 18:13 Pulse Ox 98 12/30/24 18:11 O2 Del Method Room Air 12/30/24 18:11 BMI result Body Mass Index 28.9 Alert and orientated X3, able to give good history. Neuro: CN II-X11 intact, no deficits, visual acuity intact EYES: PERRLA, EOM intact, sclerae nonicteric ENT: hearing intact, no issues with swallowing, uvula midline, lips moist, nares patent no epistaxis Cardiac: S1 S2 RRR, no murmur, no JVD, no edema in Lower ext Pulmonary: lungs clear to auscultation B Abdominal: BS active in all 4 quadrants, no guarding, tenderness, rebounding MSK: Right wrist inflamed, hot to the touch, with erythema present. Patient does have full range of motion in the affected wrist. No edema noted in the other extremities. : no CVA tenderness no bladder distension Extremities: no edema in lower extremities, PT and DP pulses palpable +2 Psych: mood stable, judgement and insight good Skin: Cellulitic changes in the right wrist Results Labs 12/30/24 14:49 12/30/24 14:49 Labs: Laboratory Results - last 24 hr 12/30/24 12/30/24 14:49 14:50 MCV 84.1 MCH 28.9 MCHC 34.4 RDW 12.8 Plt Count 276 MPV 10.0 Immature Gran % (Auto) 0.3 Neut % (Auto) 78.2 H Lymph % (Auto) 11.3 L [place] % (Auto) 8.0 Eos % (Auto) 1.5 Baso % (Auto) 0.7 Lymph # (Auto) 1.1 L [place] # (Auto) 0.8 Eos # (Auto) 0.1 Baso # (Auto) 0.1 Abs Immat Gran (auto) 0.03 Absolute Neuts (auto) 7.4 Absolute Nucleated RBC 0.000 Nucleated RBC % (auto) 0.0 ESR 34 H PT 11.6 INR 1.0 APTT 31.2 Anion Gap 14 Estim Creat Clear Calc 68.4 Estimated GFR 58 Random Glucose 95 Lactic Acid 1.5 Uric Acid 7.8 H Calcium 9.3 Total Bilirubin 1.3 H AST 24 ALT 21 Alkaline Phosphatase 89 C-Reactive Protein 5.16 H Total Protein 7.5 Albumin 4.4 ECG Attestation: I personally reviewed and interpreted this ECG as follows: Prior ECG tracings: not available for review Imaging Radiologist's Impressions: Impressions Hand X-Ray 12/30/24 12:33 IMPRESSION: Soft tissue swelling of the dorsum of the wrist and hand. Subtle changes of focal osteopenia within the triquetrum, a very subtle finding which could represent early changes of osteomyelitis. Electronically signed by: Gabino Cain MD 12/30/2024 01:49 PM EDT Wrist X-Ray 12/30/24 12:34 IMPRESSION: Soft tissue swelling of the dorsum of the wrist and hand. Subtle changes of focal osteopenia within the triquetrum, a very subtle finding which could represent early changes of osteomyelitis. Electronically signed by: Gabino Cain MD 12/30/2024 01:49 PM EDT RP MRI pending Assessment and Plan (1) Cellulitis: Qualifiers: Laterality: right Site of cellulitis: extremity Site of cellulitis of extremity: upper extremity Qualified Code(s): L03.113 - Cellulitis of right upper limb Status: Acute Plan Pt is a 49 yo male with PMH Cystic Fibrosis, HTN, anxiety, insomnia, chronic pancreatitis (first episode as a teenager), gout presents to the ED with ongoign pain, swelling and warmth in R wrist. Pt was seen prior (11/18/24) for same concern and was started on 5 days of ABX and indomethacin with some improvement but now symptoms have worsened and pt is unable to use his right hand for eating or brushing his teeth, being right hand dominant. Patient being admitted for rule out of osteomyelitis of the affected wrist. Uric acid is elevated at 7.8. Cellulitis R wrist/hand Rule out OM X-ray indicates osteopenia of the triquetrum in the right wrist which may be an early sign of osteomyelitis MRI of the right wrist pending Patient is started on vancomycin IV, pharmacy consulted for management Anti-inflammatory ordered noting patient's uric acid is elevated and renal function is baseline Gout Uric acid 7.8, previously in November when inflammation of right wrist started, uric acid 10.4 Patient is not normally on allopurinol and does not use colchicine for flares Indomethacin was effective back in November for patient's pain and inflammation, resumption of the medication ordered Hypertension Continue losartan, hydralazine and metoprolol once med rec completed Blood pressure was elevated on arrival Low-sodium diet Cystic fibrosis Continue daily budesonide with formoterol once med rec completed Anxiety Continue bupropion, clonidine p.r.n., once med rec completed Insomnia Continue mirtazapine DVT prophylaxis: Lovenox Med rec pending Full Code status Quality Stroke Does the patient have a stroke diagnosis?: No VTE Prior VTE?: No VTE Risk Level:: Medical - moderate - high VTE Device Contraindication: Treatment Not Indicated VTE Drug Contraindication: N/A - Med Ordered
--- NOTE | 2024-12-30 21:23 | PHA.MEDREC ---
Addendum entered by Laureen Padgett RPh 12/30/24 21:49: [facility] reviewed Original Note: Pharmacy Consult ? Medication Reconciliation Pharmacy has completed the medication reconciliation. Spoke with pt and he confirmed his medications. Pt finished Doxycycline regimen in last week, he stopped Nifedipine ~1 month ago himself; stating he has an appt with a new PCP next week to see if he needs to go back on it, he still uses Mirtazapine prn for sleep and Bupropion and Clonidine prn for Anxiety for a traumatic time in his life and he is slowly tapering them.
[2024-12-30] MEDS: vancomycin/NS 2,000 MG/500 ML PLAST..BAG 250 MG IV (21:25)
--- NOTE | 2024-12-30 21:43 | PHA.PROG ---
Admission Date/Time: December 30, 2024 18:23 Indication: BONE AND JOINT INFECTION Weight in k.2 kg Adjusted body weight in Kg: Gates body weight in Kg: Obesity Dosing Indication % IBW: Serum Creatinine - Last 168 Hours 12/30/24 14:49 Creatinine 1.32 Estimated CrCl and GFR - Last 168 Hours 12/30/24 14:49 Estim Creat Clear Calc 68.4 Estimated GFR 58 Vancomycin Loading Dose: 2000 MG Current Vancomycin Dosing Regimen: 750 MG Q 12 HOURS Vancomycin Monitoring using AUC goal of 400 - 600 range with trough as surrogate marker: Date and Time for next Vancomycin Level to be drawn: 01/01/25 0700 Pharmacist Comments on Vancomycin Plan: PREDICTED AUC OF 468 Vancomycin dosing will take advantage of [employer] as a clinical decision support tool that uses Bayesian modeling to calculate individual patient's pharmacokinetic parameters and forecast the patient's drug concentration time course with the target goal AUC 24 range of 400 - 600 mg/L/hr.
[2024-12-30 21:45] VITALS: BMI 30.2
[2024-12-30 21:55] VITALS: BP 190/110; PULSE 66; RESP 18; TEMP 36.5; O2SAT 97
[2024-12-31] VITALS (8 sets, daily range): BP systolic 142–157; BP diastolic 89–99; PULSE 75–98; RESP 12–18; TEMP 36.2–37; O2SAT 94–100
[2024-12-31] MEDS: 0.9 % Sodium Chloride Flush 3 ML SYRINGE IVFLUSH ×4 (00:27→20:41)
[2024-12-31 06:39] LABS: Alanine Aminotransferase 19 U/L (0-40); Albumin Level 4.0 g/dL (3.5-5.0); Alkaline Phosphatase 83 U/L (39-117); Anion Gap 14 (12-20); Aspartate Amino Transferase 24 U/L (5-37); Blood Urea Nitrogen 20 mg/dL (9-16); Calcium 8.7 mg/dL (8.4-10.2); Carbon Dioxide 25 mmol/L (22-29); Chloride 105 mmol/L (96-108); Creatinine Clr Calc Pharmacy 78.2; Estimated Glomerular Filt Rate > 60; Potassium 3.8 mmol/L (3.3-5.1); Sodium 140 mmol/L (135-145); Total Protein 6.9 g/dL (6.5-8.0)
[2024-12-31] MEDS: buPROPion HCl XL 150 MG TAB.ER.24H PO (09:00)
[2024-12-31] MEDS: Metoprolol Succinate ER 25 MG TAB.ER.24H PO (09:00)
--- NOTE | 2024-12-31 09:56 | MHC.CM.PN ---
DX RT wrist Gout, Cellulitis 1 Mo ago [place] [facility] [place] failed out patient ABX/Prednisone. Lives with Mother He is independent with all functional mobility. PCP Dr Suarez retired. New PCP appointment scheduled for Monday01/06/25. Patient does not know name [address] [place] [address] Dr. CAO [facility] self care his car is in [facility] [place].
--- NOTE | 2024-12-31 13:55 | HO.PM.IMPN ---
Subjective Subjective Date of Service: 12/31/24 Interval History: Pt seen this am, complains of pain in his Rt wrist, states pain meds are helping, wrist MRI tenosynovitis, ?? OM Vs septic arthritis. ID consulted, Review of Systems -ve except as stated above Physical Exam Vital Signs: Vital Signs: Last Vital Signs Temp 98.6 F 12/31/24 07:18 Pulse 77 12/31/24 09:00 Resp 12 12/31/24 07:18 BP 148/89 H 12/31/24 10:00 Pulse Ox 96 12/31/24 07:18 O2 Del Method Room Air 12/31/24 07:18 BMI result Body Mass Index 30.2 Alert and orientated X3, able to give good history. Neuro: CN II-X11 intact, no deficits, visual acuity intact Cardiac: S1 S2 RRR, no murmur, no JVD, no edema in Lower ext Pulmonary: lungs clear to auscultation Abdominal: , no guarding, tenderness, rebounding MSK: Right wrist inflamed, hot to the touch, with erythema present. Patient does have full range of motion in the affected wrist. No edema noted in the other extremities. Extremities: no edema in lower extremities, Objective Data Active Medications Acetaminophen (Acetaminophen 325 Mg Tablet) 650 mg PO Q6H PRN PRN Reason: Pain, Mild 1-3,fever,headache Bupropion HCl (Bupropion Hcl Xl 150 Mg Tab.Er.24h) 150 mg PO DAILY PRN PRN Reason: Anxiety Last Admin: 12/31/24 09:00 Dose: 150 mg Documented By: ERIC Calcium Carbonate (Calcium Carbonate 750 Mg Tab.Chew) 750 mg PO Q4H PRN PRN Reason: Heartburn Clonidine HCl (Clonidine Hcl 0.1 Mg Tablet) 0.1 mg PO DAILY PRN; Protocol PRN Reason: Anxiety Last Admin: 12/31/24 09:00 Dose: 0.1 mg Documented By: ERIC Enoxaparin Sodium (Enoxaparin Sodium 40 Mg/0.4 Ml Syringe) 40 mg SUBCUT Q24H [facility] Last Admin: 12/30/24 21:25 Dose: Not Given Documented By: ESTEBAN Non-Admin Reason: Patient Refused Fluticasone/Vilanterol (Fluticasone/Vilanterol 200/25 Blst.W.Dev) 1 puff INHALE RDAILY [facility] Last Admin: 12/31/24 07:27 Dose: Not Given Documented By: ASHVIN Non-Admin Reason: Med Not Available Hydralazine HCl (Hydralazine Hcl 50 Mg Tablet) 50 mg PO BID [facility]; Protocol Last Admin: 12/31/24 09:01 Dose: 50 mg Documented By: ERIC Vancomycin HCl 750 mg/ Sodium (Chloride) 265 mls @ 265 mls/hr IV Q12H [facility] Last Infusion: 12/31/24 10:02 Dose: Infused Documented By: ERIC Losartan Potassium (Losartan Potassium 50 Mg Tablet) 50 mg PO BID [facility]; Protocol Last Admin: 12/31/24 08:56 Dose: 50 mg Documented By: ERIC Magnesium Hydroxide (Milk Of Magnesia 30 Ml Oral.Susp) 30 ml PO DAILY PRN PRN Reason: Constipation Melatonin (Melatonin 3 Mg Tablet) 6 mg PO BEDTIME PRN PRN Reason: Insomnia Metoprolol Succinate (Metoprolol Succinate Er 25 Mg Tab.Er.24h) 25 mg PO DAILY [facility]; Protocol Last Admin: 12/31/24 09:00 Dose: 25 mg Documented By: ERIC Mirtazapine (Mirtazapine 7.5 Mg Tablet) 7.5 mg PO BEDTIME PRN PRN Reason: Sleep Multivitamins/Vitamin C (Multivitamin Tablet) 1 tab PO DAILY [facility] Last Admin: 12/31/24 09:00 Dose: 1 tab Documented By: ERIC Pharmacy Consult (Consult Rx Vancomycin Dosing) 1 each MISCELLANE DAILY PRN PRN Reason: Consult order Polyethylene Glycol (Polyethylene Glycol 3350 17 Gm Powd.Pack) 17 gm PO DAILY PRN PRN Reason: Constipation Sodium Chloride (0.9 % Sodium Chloride Flush 3 Ml Syringe) 3 ml IVFLUSH QSHIFT [facility] Last Admin: 12/31/24 09:02 Dose: 3 ml Documented By: ERIC Vitamin D (Cholecalciferol (Vitamin D3) 25 Mcg Tablet) 25 mcg PO DAILY [facility] Last Admin: 12/31/24 09:00 Dose: 25 mcg Documented By: ERIC Labs 12/30/24 14:49 12/31/24 05:11 Labs: Laboratory Results - last 24 hr 12/30/24 12/30/24 12/31/24 14:49 14:50 05:11 MCV 84.1 MCH 28.9 MCHC 34.4 RDW 12.8 Plt Count 276 MPV 10.0 Immature Gran % (Auto) 0.3 Neut % (Auto) 78.2 H Lymph % (Auto) 11.3 L [place] % (Auto) 8.0 Eos % (Auto) 1.5 Baso % (Auto) 0.7 Lymph # (Auto) 1.1 L [place] # (Auto) 0.8 Eos # (Auto) 0.1 Baso # (Auto) 0.1 Abs Immat Gran (auto) 0.03 Absolute Neuts (auto) 7.4 Absolute Nucleated RBC 0.000 Nucleated RBC % (auto) 0.0 ESR 34 H Hold Purple Top SEE NOTE PT 11.6 INR 1.0 APTT 31.2 Anion Gap 14 14 Estim Creat Clear Calc 68.4 78.2 Estimated GFR 58 > 60 Random Glucose 95 89 Lactic Acid 1.5 Uric Acid 7.8 H Calcium 9.3 8.7 D Total Bilirubin 1.3 H 2.0 H AST 24 24 ALT 21 19 Alkaline Phosphatase 89 83 C-Reactive Protein 5.16 H Total Protein 7.5 6.9 Albumin 4.4 4.0 Assessment and Plan (1) Cellulitis: Status: Acute Plan Pt is a 49 yo male with PMH Cystic Fibrosis, HTN, anxiety, insomnia, chronic pancreatitis (first episode as a teenager), gout presents to the ED with ongoign pain, swelling and warmth in R wrist. Pt was seen prior (11/18/24) for same concern and was started on 5 days of ABX and indomethacin with some improvement but now symptoms have worsened and pt is unable to use his right hand for eating or brushing his teeth, being right hand dominant. Patient being admitted for rule out of osteomyelitis of the affected wrist. Uric acid is elevated at 7.8. Cellulitis R wrist/hand Rule out OM X-ray indicates osteopenia of the triquetrum in the right wrist which may be an early sign of osteomyelitis MRI of the right wrist ~ tenosynovitis, ?? septic arthritis Vs OM Patient is started on vancomycin IV, pharmacy consulted for management CRP elevated, ID consulted Gout Uric acid 7.8, previously in November when inflammation of right wrist started, uric acid 10.4 Patient is not normally on allopurinol and does not use colchicine for flares Indomethacin was effective back in November for patient's pain and inflammation, resumption of the medication ordered Hypertension Continue losartan, hydralazine and metoprolol Blood pressure was elevated on arrival Low-sodium diet Cystic fibrosis Continue home med Anxiety Continue bupropion, clonidine p.r.n., Insomnia Continue mirtazapine DVT prophylaxis: Lovenox Full Code status Quality Stroke Does the patient have a stroke diagnosis?: No VTE Prior VTE?: No VTE Risk Level:: Medical - moderate - high VTE Device Contraindication: Treatment Not Indicated VTE Drug Contraindication: N/A - Med Ordered
[2025-01-01 03:27] VITALS: BP 131/72; PULSE 70; RESP 18; TEMP 36.5; O2SAT 95
[2025-01-01 07:47] LABS: Creatinine Clr Calc Pharmacy 69.4; Estimated Glomerular Filt Rate 57
[2025-01-01 08:00] VITALS: BP 168/78; PULSE 66; RESP 16; TEMP 36.1; O2SAT 96
--- NOTE | 2025-01-01 08:12 | HE.PHANOTE ---
RE: Vanco Trough came back at 17.4. Renal function at baseline. Will continue current regimen with predicted AUC of 529 and trough 17.8. Next trough due 01/02 @1900. Will continue to monitor.
[2025-01-01] MEDS: Fluticasone/Vilanterol 200/25 BLST.W.DEV 1 PUFF INHALE (08:34)
[2025-01-01 08:38] VITALS: PULSE 77; RESP 16; O2SAT 100
[2025-01-01] MEDS: Metoprolol Succinate ER 25 MG TAB.ER.24H PO (08:56)
--- NOTE | 2025-01-01 14:59 | MHC.CM.PN ---
Per MD rounds patient is not medically cleared to discharge. MRI result: Osteo vs septic arthritis. An ID consult is pending. DP home self care vs IV ABX. Early referrals sent to [facility] and [facility] care
[2025-01-01 15:06] VITALS: BP 149/92; PULSE 65; RESP 18; TEMP 36.3; O2SAT 97
--- NOTE | 2025-01-01 16:19 | P.PNIM_ITS ---
Subjective Subjective Date of Service: 01/01/25 Interval History: Feels better Less pain and swelling in right wrist No fever or chills Seen by ID We will get joint aspiration and analysis of fluid for gout vs septic arthritis Review of Systems Review of Systems: Yes all other systems are reviewed and are negative Physical Exam 2 Exam: Exam: General: AOx3, no acute distress Resp: CTA bilaterally CVS: S1, S2, RRR GI: +BS, NT, no distention Skin: Warm, dry Neuro: Cranial nerves II-XII grossly intact bilaterally. Motor grossly intact bilaterally Extremities: Right wrist with mild swelling and tenderness. Mild impairment of active ROM to right wrist Psych: Appropriate affect Vital Signs: Vital Signs: Last Vital Signs Temp 97.3 F 01/01/25 15:06 Pulse 65 01/01/25 15:06 Resp 18 01/01/25 15:06 BP 149/92 H 01/01/25 15:06 Pulse Ox 97 01/01/25 15:06 O2 Del Method Room Air 01/01/25 15:06 BMI result Body Mass Index 30.2 Objective Data Active Medications Acetaminophen (Acetaminophen 325 Mg Tablet) 650 mg PO Q6H PRN PRN Reason: Pain, Mild 1-3,fever,headache Bupropion HCl (Bupropion Hcl Xl 150 Mg Tab.Er.24h) 150 mg PO DAILY PRN PRN Reason: Anxiety Last Admin: 12/31/24 09:00 Dose: 150 mg Documented By: ERIC Calcium Carbonate (Calcium Carbonate 750 Mg Tab.Chew) 750 mg PO Q4H PRN PRN Reason: Heartburn Clonidine HCl (Clonidine Hcl 0.1 Mg Tablet) 0.1 mg PO DAILY PRN; Protocol PRN Reason: Anxiety Last Admin: 12/31/24 09:00 Dose: 0.1 mg Documented By: ERIC Enoxaparin Sodium (Enoxaparin Sodium 40 Mg/0.4 Ml Syringe) 40 mg SUBCUT Q24H [facility] Last Admin: 12/31/24 20:24 Dose: Not Given Documented By: ZEKE Non-Admin Reason: Patient Refused Fluticasone/Vilanterol (Fluticasone/Vilanterol 200/25 Blst.W.Dev) 1 puff INHALE RDAILY [facility] Last Admin: 01/01/25 08:34 Dose: 1 puff Documented By: CARIDAD Hydralazine HCl (Hydralazine Hcl 50 Mg Tablet) 50 mg PO BID [facility]; Protocol Last Admin: 01/01/25 08:56 Dose: 50 mg Documented By: JOSE Vancomycin HCl 750 mg/ Sodium (Chloride) 265 mls @ 265 mls/hr IV Q12H [facility] Last Infusion: 01/01/25 09:55 Dose: Infused Documented By: JOSE Indomethacin (Indomethacin 25 Mg Capsule) 50 mg PO TID [facility] Last Admin: 01/01/25 14:49 Dose: 50 mg Documented By: JOSE Losartan Potassium (Losartan Potassium 50 Mg Tablet) 50 mg PO BID [facility]; Protocol Last Admin: 01/01/25 08:56 Dose: 50 mg Documented By: JOSE Magnesium Hydroxide (Milk Of Magnesia 30 Ml Oral.Susp) 30 ml PO DAILY PRN PRN Reason: Constipation Melatonin (Melatonin 3 Mg Tablet) 6 mg PO BEDTIME PRN PRN Reason: Insomnia Metoprolol Succinate (Metoprolol Succinate Er 25 Mg Tab.Er.24h) 25 mg PO DAILY [facility]; Protocol Last Admin: 01/01/25 08:56 Dose: 25 mg Documented By: JOSE Mirtazapine (Mirtazapine 7.5 Mg Tablet) 7.5 mg PO BEDTIME PRN PRN Reason: Sleep Multivitamins/Vitamin C (Multivitamin Tablet) 1 tab PO DAILY [facility] Last Admin: 01/01/25 08:56 Dose: 1 tab Documented By: JOSE Pharmacy Consult (Consult Rx Vancomycin Dosing) 1 each MISCELLANE DAILY PRN PRN Reason: Consult order Polyethylene Glycol (Polyethylene Glycol 3350 17 Gm Powd.Pack) 17 gm PO DAILY PRN PRN Reason: Constipation Sodium Chloride (0.9 % Sodium Chloride Flush 3 Ml Syringe) 3 ml IVFLUSH QSHIFT [facility] Last Admin: 01/01/25 13:30 Dose: Not Given Documented By: JOSE Non-Admin Reason: Previously Administered Vitamin D (Cholecalciferol (Vitamin D3) 25 Mcg Tablet) 25 mcg PO DAILY [facility] Last Admin: 01/01/25 08:56 Dose: 25 mcg Documented By: JOSE Labs 12/30/24 14:49 01/01/25 07:05 Labs: Laboratory Results - last 24 hr 01/01/25 07:05 Estim Creat Clear Calc 69.4 Estimated GFR 57 Vancomycin Trough 17.4 Microbiology Microbiology Results: Microbiology 12/30/24 14:51 Blood Culture - Preliminary Blood - Venous No growth after 24 hours. 12/30/24 14:49 Blood Culture - Preliminary Blood - Venous No growth after 24 hours. Assessment and Plan (1) Swelling of right wrist: Status: Acute Plan Pt is a 49 yo male with PMH Cystic Fibrosis, HTN, anxiety, insomnia, chronic pancreatitis (first episode as a teenager), gout presents to the ED with ongoign pain, swelling and warmth in R wrist. Pt was seen prior (11/18/24) for same concern and was started on 5 days of ABX and indomethacin with some improvement but now symptoms have worsened and pt is unable to use his right hand for eating or brushing his teeth, being right hand dominant. Patient being admitted for rule out of osteomyelitis of the affected wrist. Uric acid is elevated at 7.8. Cellulitis R wrist/hand Rule out OM X-ray indicates osteopenia of the triquetrum in the right wrist which may be an early sign of osteomyelitis MRI of the right wrist ~ tenosynovitis, ?? septic arthritis Vs OM Continue empiric vancomycin IV CRP elevated, ESR mildly elevated ID consulted Will get right wrist aspiration to evaluate for gout vs septic arthritis Follow joint cultures Gout Uric acid 7.8, previously in November when inflammation of right wrist started, uric acid 10.4 Patient is not normally on allopurinol and does not use colchicine for flares Indomethacin was effective back in November for patient's pain and inflammation, resumption of the medication ordered Consider allopurinol once discharged Hypertension Continue losartan, hydralazine and metoprolol Blood pressure was elevated on arrival Low-sodium diet Cystic fibrosis Continue home med Anxiety Continue bupropion, clonidine p.r.n., Insomnia Continue mirtazapine DVT prophylaxis: Lovenox Full Code status Pt require continued hospitalization for empiric IV antibiotic coverage while awaiting joint aspiration and synovial fluid labs Quality Stroke Does the patient have a stroke diagnosis?: No VTE Prior VTE?: No VTE Risk Level:: Medical - moderate - high VTE Device Contraindication: Treatment Not Indicated VTE Drug Contraindication: N/A - Med Ordered
[2025-01-01 19:51] VITALS: BP 149/85; PULSE 68; RESP 17; TEMP 36.4; O2SAT 95
[2025-01-01] MEDS: 0.9 % Sodium Chloride Flush 3 ML SYRINGE IVFLUSH (20:24)
--- NOTE | 2025-01-01 23:12 | W.PM.IDCN ---
History of Present Illness Data of Consult Service Date: 01/01/25 Requesting physician: Beth Patel Primary Care Provider: Unknown Physician HPI Reason for consult: inflammatory arthritis right wrist He presents with acute pain right wrist about five days ago. It felt hot and red. He has no injury or fever or chills. He has MRI with inflammatory process around triquetrum. [facility] Past Medical History Medical History (Updated 01/01/25 @ 23:16 by Yael Welch MD) Pancreatitis Gout Cystic fibrosis High blood pressure Family History Family history: reviewed and not pertinent Social History Social History Household Members: Family Housing: House Do you presently have visiting nurse or other home services: No Patient Tobacco Use Status: Never used Tobacco Currently Displaying Signs/Symptoms of Drug Intoxication Withdrawal: No Have you been hit, kicked, punched, or otherwise hurt by someone within the past year? 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 Travel History Ebola Risk: Travel/Contact With Anyone From Affected Area/s: No Has Patient Experienced Ebola Symptoms: No Meds Allergies Allergy/AdvReac Type Severity Reaction Status Date / Time guaifenesin (From Allergy Unknown HIVES Verified 12/30/24 13:17 ROBITUSSIN-DM) ciprofloxacin (From Cipro) Allergy Hives Verified 12/30/24 13:17 From KEFLEX Allergy Unknown HIVES Uncoded 10/26/22 12:27 From ROBITUSSIN-DM Allergy Unknown HIVES Uncoded 10/26/22 12:27 Active Medications: Current Medications Acetaminophen (Acetaminophen 325 Mg Tablet) 650 mg PO Q6H PRN PRN Reason: Pain, Mild 1-3,fever,headache Bupropion HCl (Bupropion Hcl Xl 150 Mg Tab.Er.24h) 150 mg PO DAILY PRN PRN Reason: Anxiety Last Admin: 12/31/24 09:00 Dose: 150 mg Calcium Carbonate (Calcium Carbonate 750 Mg Tab.Chew) 750 mg PO Q4H PRN PRN Reason: Heartburn Clonidine HCl (Clonidine Hcl 0.1 Mg Tablet) 0.1 mg PO DAILY PRN; Protocol PRN Reason: Anxiety Last Admin: 12/31/24 09:00 Dose: 0.1 mg Enoxaparin Sodium (Enoxaparin Sodium 40 Mg/0.4 Ml Syringe) 40 mg SUBCUT Q24H [facility] Last Admin: 01/01/25 20:30 Dose: Not Given Fluticasone/Vilanterol (Fluticasone/Vilanterol 200/25 Blst.W.Dev) 1 puff INHALE RDAILY [facility] Last Admin: 01/01/25 08:34 Dose: 1 puff Hydralazine HCl (Hydralazine Hcl 50 Mg Tablet) 50 mg PO BID [facility]; Protocol Last Admin: 01/01/25 20:19 Dose: 50 mg Vancomycin HCl 750 mg/ Sodium (Chloride) 265 mls @ 265 mls/hr IV Q12H [facility] Last Infusion: 01/01/25 21:33 Dose: Infused Indomethacin (Indomethacin 25 Mg Capsule) 50 mg PO TID [facility] Last Admin: 01/01/25 20:19 Dose: 50 mg Losartan Potassium (Losartan Potassium 50 Mg Tablet) 50 mg PO BID [facility]; Protocol Last Admin: 01/01/25 20:20 Dose: 50 mg Magnesium Hydroxide (Milk Of Magnesia 30 Ml Oral.Susp) 30 ml PO DAILY PRN PRN Reason: Constipation Melatonin (Melatonin 3 Mg Tablet) 6 mg PO BEDTIME PRN PRN Reason: Insomnia Metoprolol Succinate (Metoprolol Succinate Er 25 Mg Tab.Er.24h) 25 mg PO DAILY [facility]; Protocol Last Admin: 01/01/25 08:56 Dose: 25 mg Mirtazapine (Mirtazapine 7.5 Mg Tablet) 7.5 mg PO BEDTIME PRN PRN Reason: Sleep Multivitamins/Vitamin C (Multivitamin Tablet) 1 tab PO DAILY [facility] Last Admin: 01/01/25 08:56 Dose: 1 tab Polyethylene Glycol (Polyethylene Glycol 3350 17 Gm Powd.Pack) 17 gm PO DAILY PRN PRN Reason: Constipation Sodium Chloride (0.9 % Sodium Chloride Flush 3 Ml Syringe) 3 ml IVFLUSH QSHIFT [facility] Last Admin: 01/01/25 20:24 Dose: 3 ml Vitamin D (Cholecalciferol (Vitamin D3) 25 Mcg Tablet) 25 mcg PO DAILY [facility] Last Admin: 01/01/25 08:56 Dose: 25 mcg Home Medications ?Medication ?Instructions ?Recorded ?Confirmed ?Last Taken ?Type albuterol sulfate 90 mcg/actuation 2 puff inhalation Q6H PRN 10/26/22 12/30/24 Unknown History aerosol inhaler (Ventolin HFA) Shortness Of Breath Or Wheezing budesonide-formoterol HFA 160 2 puff inhalation BID 10/26/22 12/30/24 12/29/24 History mcg-4.5 mcg/actuation aerosol inhaler (Symbicort) cholecalciferol (vitamin D3) 25 25 mcg PO DAILY 10/26/22 12/30/24 12/30/24 History mcg (1,000 unit) capsule hydralazine 50 mg tablet 50 mg PO BID 10/26/22 12/30/24 12/30/24 History losartan 50 mg tablet 50 mg PO BID 10/26/22 12/30/24 12/30/24 History metoprolol succinate 25 mg 25 mg PO DAILY 10/26/22 12/30/24 12/30/24 History tablet,extended release 24 hr bupropion HCl 150 mg 24 hr tablet, 150 mg PO DAILY PRN Anxiety 12/30/24 12/30/24 Unknown History extended release clonidine HCl 0.1 mg tablet 0.1 mg PO DAILY PRN Anxiety 12/30/24 12/30/24 12/30/24 History magnesium 250 mg tablet 125 mg PO BEDTIME PRN Sleep 12/30/24 12/30/24 Unknown History mirtazapine 7.5 mg tablet 7.5 mg PO BEDTIME PRN Sleep 12/30/24 12/30/24 Unknown History multivitamin 1 tab PO DAILY 12/30/24 12/30/24 12/30/24 History Physical Exam Vital Signs: Vital Signs: Last Vital Signs Temp 97.5 F 01/01/25 19:51 Pulse 68 01/01/25 19:51 Resp 17 01/01/25 19:51 BP 149/85 H 01/01/25 19:51 Pulse Ox 95 01/01/25 19:51 O2 Del Method Room Air 01/01/25 19:51 BMI result Body Mass Index 30.2 Const: General: cooperative HEENT: Head: Yes normal to inspection Face and sinus: Yes normal facial exam Mouth: Normal oral and palatal mucosa present Teeth and gingiva: dentition normal Eyes: General: appearance normal, both eyes and all related structures Pupils: Equal, round and reactive pupils present Resp: Effort & Inspection: normal respiratory effort Cardio: Rate: regular rate Rhythm: regular rhythm GI: Palpation (GI): Soft to palpation and nontender : General: Yes no CVA tenderness Back/Spine/Pelvis: Back: no CVA tenderness Skin: General skin exam: no rashes or lesions noted Neuro: General: moves all extremities Cranial nerves: Yes Equal, round and reactive pupils present Extrem: Other: redness,pain and swelling right wrist General: Yes normal to inspection Psych: Appearance: grossly normal Results Labs 12/30/24 14:49 01/01/25 07:05 Labs: BMP 01/01/25 07:05 Creatinine 1.33 Microbiology Microbiology Results: Microbiology 12/30/24 14:51 Blood - Venous Blood Culture - Preliminary No growth after 48 hours. 12/30/24 14:49 Blood - Venous Blood Culture - Preliminary No growth after 48 hours. Assessment and Plan (1) Swelling of right wrist: Status: Acute Plan He has possible erosive gout or RA,no evidence Lyme disease. Possible but less likely infection Would stop antibiotics for now so infection wont be masked. Check gout,CPPD,other CVD or arthropathy and gram stain and culture,fungus,AFB.
[2025-01-02] VITALS (10 sets, daily range): BP systolic 146–190; BP diastolic 72–112; PULSE 63–78; RESP 16–18; TEMP 36.2–36.7; O2SAT 94–98
[2025-01-02 06:46] LABS: Creatinine Clr Calc Pharmacy 72.7; Estimated Glomerular Filt Rate > 60
[2025-01-02] MEDS: Fluticasone/Vilanterol 200/25 BLST.W.DEV 1 PUFF INHALE (08:35)
[2025-01-02] MEDS: 0.9 % Sodium Chloride Flush 3 ML SYRINGE IVFLUSH ×3 (09:17→20:33)
[2025-01-02] MEDS: Metoprolol Succinate ER 25 MG TAB.ER.24H PO (09:18)
[2025-01-02] MEDS: Lidocaine HCl 1 % MPF 30 ML VIAL INTRAARTIC (14:10)
[2025-01-02 14:23] LABS: Source Synovial Fluid Right wrist
[2025-01-02 14:55] LABS: Lymphocytes Synovial Fluid 2 %; Monocytes Synovial Fluid 4 %; Neutrophils Synovial Fluid 94 %; RBC Synovial Fluid Manual 31500 mm*3
[2025-01-02 14:56] LABS: WBC Synovial Fluid Manual 175 mm*3
--- NOTE | 2025-01-02 15:50 | HO.PM.IMPN ---
Subjective Subjective Date of Service: 01/02/25 Interval History: Swelling and erythema improved No significant wrist pain Overall feeling better No acute medical complaints Review of Systems Review of Systems: Yes all other systems are reviewed and are negative Physical Exam Exam: Exam: General: AOx3, no acute distress Resp: CTA bilaterally CVS: S1, S2, RRR GI: +BS, NT, no distention Skin: Warm, dry Neuro: Cranial nerves II-XII grossly intact bilaterally. Motor grossly intact bilaterally Extremities: No edema. Mild swelling at right wrist. No significant warmth or erythema. Preserved active ROM of wrist Psych: Appropriate affect Vital Signs: Vital Signs: Last Vital Signs Temp 97.2 F 01/02/25 15:39 Pulse 66 01/02/25 15:39 Resp 18 01/02/25 15:39 BP 168/72 H 01/02/25 15:39 Pulse Ox 97 01/02/25 15:39 O2 Del Method Room Air 01/02/25 15:39 BMI result Body Mass Index 30.2 Objective Data Active Medications Acetaminophen (Acetaminophen 325 Mg Tablet) 650 mg PO Q6H PRN PRN Reason: Pain, Mild 1-3,fever,headache Bupropion HCl (Bupropion Hcl Xl 150 Mg Tab.Er.24h) 150 mg PO DAILY PRN PRN Reason: Anxiety Last Admin: 12/31/24 09:00 Dose: 150 mg Documented By: ERIC Calcium Carbonate (Calcium Carbonate 750 Mg Tab.Chew) 750 mg PO Q4H PRN PRN Reason: Heartburn Clonidine HCl (Clonidine Hcl 0.1 Mg Tablet) 0.1 mg PO DAILY PRN; Protocol PRN Reason: Anxiety Last Admin: 12/31/24 09:00 Dose: 0.1 mg Documented By: ERIC Enoxaparin Sodium (Enoxaparin Sodium 40 Mg/0.4 Ml Syringe) 40 mg SUBCUT Q24H [facility] Last Admin: 01/01/25 20:30 Dose: Not Given Documented By: ZEKE Non-Admin Reason: Patient Refused Fluticasone/Vilanterol (Fluticasone/Vilanterol 200/25 Blst.W.Dev) 1 puff INHALE RDAILY [facility] Last Admin: 01/02/25 08:35 Dose: 1 puff Documented By: SUMANTH Hydralazine HCl (Hydralazine Hcl 50 Mg Tablet) 50 mg PO BID [facility]; Protocol Last Admin: 01/02/25 09:18 Dose: 50 mg Documented By: JOSE Indomethacin (Indomethacin 25 Mg Capsule) 50 mg PO TID [facility] Last Admin: 01/02/25 15:02 Dose: 50 mg Documented By: JOSE Losartan Potassium (Losartan Potassium 50 Mg Tablet) 50 mg PO BID [facility]; Protocol Last Admin: 01/02/25 09:18 Dose: 50 mg Documented By: JOSE Magnesium Hydroxide (Milk Of Magnesia 30 Ml Oral.Susp) 30 ml PO DAILY PRN PRN Reason: Constipation Melatonin (Melatonin 3 Mg Tablet) 6 mg PO BEDTIME PRN PRN Reason: Insomnia Metoprolol Succinate (Metoprolol Succinate Er 25 Mg Tab.Er.24h) 25 mg PO DAILY [facility]; Protocol Last Admin: 01/02/25 09:18 Dose: 25 mg Documented By: JOSE Mirtazapine (Mirtazapine 7.5 Mg Tablet) 7.5 mg PO BEDTIME PRN PRN Reason: Sleep Multivitamins/Vitamin C (Multivitamin Tablet) 1 tab PO DAILY [facility] Last Admin: 01/02/25 09:18 Dose: 1 tab Documented By: JOSE Polyethylene Glycol (Polyethylene Glycol 3350 17 Gm Powd.Pack) 17 gm PO DAILY PRN PRN Reason: Constipation Sodium Chloride (0.9 % Sodium Chloride Flush 3 Ml Syringe) 3 ml IVFLUSH QSHIFT [facility] Last Admin: 01/02/25 15:03 Dose: 3 ml Documented By: JOSE Vitamin D (Cholecalciferol (Vitamin D3) 25 Mcg Tablet) 25 mcg PO DAILY [facility] Last Admin: 01/02/25 09:18 Dose: 25 mcg Documented By: JOSE Labs 12/30/24 14:49 01/02/25 06:15 Labs: Laboratory Results - last 24 hr 01/02/25 01/02/25 06:15 13:50 Estim Creat Clear Calc 72.7 Estimated GFR > 60 Synovial Source Right wrist Synovial WBC Cancelled Synovial RBC Cancelled Synov WBC Hemocytom Sq 175 [place] [address] Synovial Neutrophils 94 Synovial Lymphocytes 2 Synovial Monocytes 4 Microbiology Microbiology Results: Microbiology 01/02/25 13:50 Gram Stain - Final Wrist Right Routine Culture - Preliminary Fluid Crystals - Final 12/30/24 14:51 Blood Culture - Preliminary Blood - Venous No growth after 48 hours. 12/30/24 14:49 Blood Culture - Preliminary Blood - Venous No growth after 48 hours. Assessment and Plan (1) Swelling of right wrist: Status: Acute Assessment and Plan: Pt is a 49 yo male with PMH Cystic Fibrosis, HTN, anxiety, insomnia, chronic pancreatitis (first episode as a teenager), gout presents to the ED with ongoign pain, swelling and warmth in R wrist. Pt was seen prior (11/18/24) for same concern and was started on 5 days of ABX and indomethacin with some improvement but now symptoms have worsened and pt is unable to use his right hand for eating or brushing his teeth, being right hand dominant. Patient being admitted for rule out of osteomyelitis of the affected wrist. Uric acid is elevated at 7.8. Right wrist swelling and erythema Concerning for cellulitis R wrist/hand Rule out OM X-ray indicates osteopenia of the triquetrum in the right wrist which may be an early sign of osteomyelitis MRI of the right wrist ~ tenosynovitis, ?? septic arthritis Vs OM Initially treated with empiric vancomycin IV; now dc'd per ID recommendations to not mask infection CRP elevated, ESR mildly elevated Right wrist aspirated today, no crystals seen, no organisms seen Follow joint cultures: AFB culture and smear, fungal culture Will check GOOD, RF Gout Uric acid 7.8, previously in November when inflammation of right wrist started, uric acid 10.4 Patient not on allopurinol Continue with Indomethacin Hypertension Continue losartan, hydralazine and metoprolol Blood pressure was elevated on arrival Low-sodium diet Cystic fibrosis Continue home med Anxiety Continue bupropion, clonidine p.r.n., Insomnia Continue mirtazapine DVT prophylaxis: Lovenox Full Code status Pt require continued hospitalization for empiric treatment while awaiting joint aspiration and synovial fluid labs Quality Stroke Does the patient have a stroke diagnosis?: No VTE Prior VTE?: No VTE Risk Level:: Medical - moderate - high VTE Device Contraindication: Treatment Not Indicated VTE Drug Contraindication: N/A - Med Ordered
[2025-01-03 03:09] VITALS: BP 150/92; PULSE 72; RESP 18; TEMP 36.1; O2SAT 94
[2025-01-03 07:49] VITALS: BP 150/100; PULSE 68; RESP 16; TEMP 36; O2SAT 96
--- NOTE | 2025-01-03 07:57 | PM.EVENT ---
Event Note Date of Service: 01/03/25 Event Note: Gram stain Final 01/02/25-1516 Gram stain results: No polys 4+ red blood cells No organisms seen Routine Culture Preliminary 01/02/25-1516 <No reportable results for this procedure> Crystals Final 01/02/25-1502 Crystals No crystals seen 12/13/24 MR wrist RT wo/w con: IMPRESSION: There is evidence of a sen-carpal active synovitis with marrow edema and erosive changes most pronounced in triquetrum. The appearance is suspicious for an active inflammatory arthropathy such as rheumatoid arthritis, but septic arthritis and osteomyelitis is not ruled out. There is also evidence of mild tenosynovitis involving the fourth greater than second extensor compartments. -Aspiration negative for septic joint -MRI suggestive of rheumatoid arthritis - Followup with rheumatology out patient -Supportive treatment -NSAIDs -Pain control -ICE -Elevation -TYRA for support if needed or velcro wrist splint -If this modality is used encourage comingout multiple times per day and perform ROM to avoid stiffness Time Spent With Patient Time: Total time managing care of this patient today ____ minutes.
[2025-01-03] MEDS: 0.9 % Sodium Chloride Flush 3 ML SYRINGE IVFLUSH (08:07)
[2025-01-03 08:08] VITALS: BP 150/100; PULSE 68
[2025-01-03] MEDS: Metoprolol Succinate ER 25 MG TAB.ER.24H PO (08:08)
[2025-01-03 10:48] VITALS: BP 140/86
--- NOTE | 2025-01-03 12:29 | PM.DS ---
DS: Providers Provider Date of Service: 01/03/25 Date of admission: 12/30/24 18:23 Date of discharge: 01/03/25 Primary care physician: Unknown Physician Consults: 12/31/24 13:53 Consult to Infectious Diseases Routine Consulting Provider: [facility] Reason for consultation: tenosynovitis, ?? septic arthiritis Vs OM per mri 01/03/25 07:40 Consult to Orthopedics Routine Consulting Provider: [facility] Reason for consultation: inflammatory arthropathy of wrist DS: Diagnosis Discharge Diagnosis (1) Swelling of right wrist: Status: Acute (2) Inflammatory arthropathy: Status: Acute DS: Summary Hospital Course Hospital Course: From the history and physical by the admitting hospitalistAaron 12/30/24: Pt is a 49 yo male with PMH Cystic Fibrosis, HTN, anxiety, insomnia, chronic pancreatitis (first episode as a teenager), gout presents to the ED with ongoign pain, swelling and warmth in R wrist. Pt was seen prior (11/18/24) for same concern and was started on 5 days of ABX and indomethacin with some improvement but now symptoms have worsened and pt is unable to use his right hand for eating or brushing his teeth, being right hand dominant. Work up in ED notes an xray of right wrist with no fracture or dislocation and normal alignment. There are subtle changes of local osteopenia within the triquetrum but no gross permeative bony change or periostitis present. There is dorsal soft tissue swelling of the wrist and hand. The focal osteopenia within the triquetrum could be a subtle finding of early osteomyelitis. Patient does have an elevated ESR and CRP. Lactic acid 1.5. Patient has no current leukocytosis, fever, chills, nausea or vomiting. The right wrist is inflamed, hot to the touch with erythema. The right hand is warm to the touch and patient does have full range of motion. Uric acid level 7.8 and previous level was 10.4 when seen in the ED back in November. Patient is not usually on allopurinol and does not take colchicine for flares. Patient is no longer taking the indomethacin as well. Patient denies use of alcohol, tobacco, marijuana or illicit drugs. Patient being admitted to rule out osteomyelitis of the affected wrist. MRI of the right wrist will be done in the a.m. Patient is started on loading dose of vancomycin and pharmacy is consulted for vancomycin management. Incidentally patient's cystic fibrosis has been well controlled with his current medication regimen. Medication reconciliation pending by pharmacy and once completed we will order patient's usual medications. Patient denies any recent bouts of pancreatitis as well. He was admitted to the hospitalist service with Orthopedics and Infectious Disease consultation; initially on empiric vancomycin but discontinued upon specialist recommendation. MRI showed sen-carpal synovitis. Right wrist aspirated and Gram stain negative, crystals negative. Ultimately thought to have inflammatory arthropathy, possibly gout versus rheumatoid arthritis. Treated with indomethacin and discharged with indomethacin as well as prednisone taper. Pending at the time of discharge: synovial fluid fungal + AFB culture, GOOD, rheumatoid factor, anti-CCP, and Lyme serology. He should follow up with Primary Care and be referred for outpatient Rheumatology consultation Time Attestation Discharge Coordination Time (in mins): 45 Quality: Safe Use of Opioids Does Pt have an Active Cancer Diagnosis on the Problem List?: No Quality: Stroke Does the patient have a stroke diagnosis?: No Physical Exam Vital Signs: Vital Signs: Last Vital Signs Temp 96.8 F 01/03/25 07:49 Pulse 68 01/03/25 08:08 Resp 16 01/03/25 07:49 BP 140/86 H 01/03/25 10:48 Pulse Ox 96 01/03/25 07:49 O2 Del Method Room Air 01/03/25 07:49 BMI result Body Mass Index 30.2 DS: Data Data Completed and Pending Labs on day of discharge: Laboratory Results - last 24 hr 01/02/25 01/03/25 13:50 08:37 Synovial Source Right wrist Synovial WBC Cancelled Synovial RBC Cancelled Synov WBC Hemocytom Sq 175 [place] [address] Synovial Neutrophils 94 Synovial Lymphocytes 2 Synovial Monocytes 4 Rheumatoid Factor < 13.0 Preliminary micro results at discharge 01/02/25 13:50 Routine Culture - Preliminary Wrist Right No growth to date. Anaerobic Culture - Preliminary No growth to date. 12/30/24 14:51 Blood Culture - Preliminary Blood - Venous No growth after 48 hours. 12/30/24 14:49 Blood Culture - Preliminary Blood - Venous No growth after 48 hours. Discharge Plan Discharge Anticipated Discharge Date/Time: 01/03/25 12:14 Patient Disposition: Home, Self-Care Discharge Diagnosis: inflammatory arthropathy, possibly gout or rheumatoid arthritis Referrals: [facility] Rheumatology Service [Provider Group, Rheumatology] - 2 Weeks Pedrito Suarez MD [Physician, Internal Medicine] - 1 Week PhysicianPetar [Primary Care Provider, Medical] - 1 Week Discharge Medications: New indomethacin 50 mg capsule 50 mg PO TID Qty: 30 0RF Rx Instructions: administer with food or milk/ stop when gout flare resolves prednisone 10 mg tablet See Rx Instructions .ROUTE .COMPLEX Qty: 40 0RF Rx Instructions: 40 mg daily x 4 days, then 30 mg daily x 4 days, then 20 mg daily x 4 days, then 10 mg daily x 4 days, then stop Continued clonidine HCl 0.1 mg tablet 0.1 mg PO DAILY PRN (Reason: Anxiety) bupropion HCl 150 mg tablet extended release 24 hr 150 mg PO DAILY PRN (Reason: Anxiety) mirtazapine 7.5 mg tablet 7.5 mg PO BEDTIME PRN (Reason: Sleep) multivitamin Tablet 1 tab PO DAILY magnesium 250 mg Tablet 125 mg PO BEDTIME PRN (Reason: Sleep) albuterol sulfate [Ventolin HFA] 90 mcg/actuation HFA aerosol inhaler 2 puff inhalation Q6H PRN (Reason: Shortness Of Breath Or Wheezing) losartan 50 mg tablet 50 mg PO BID budesonide-formoterol [Symbicort] 160-4.5 mcg/actuation HFA aerosol inhaler 2 puff inhalation BID hydralazine 50 mg tablet 50 mg PO BID cholecalciferol (vitamin D3) 25 mcg (1,000 unit) capsule 25 mcg PO DAILY metoprolol succinate 25 mg tablet extended release 24 hr 25 mg PO DAILY Discharge Orders: Discharge Order (Routine); Ordered 01/03/25 Ordered By: Naveed Richard Diet: Advance to usual diet Activity on Discharge: As tolerated Stand Alone Forms: Patient Portal Discharge page Print Language: Uzbek Care Plan Goals: resolution of wrist swelling Health Concerns: inflammatory arthropathy, possibly gout or rheumatoid arthritis continue indomethacin 50 mg 3x a day until gout flare resolves prednisone 10 mg tabs, taper as follows: 40 mg (4 tabs) daily x 4 days, then 30 mg (3 tabs) daily x 4 days, then 20 mg (2 tabs) daily x 4 days, then 10 mg (1 tab) daily x 4 days follow up with [facility] Rheumatology in 2 weeks Please follow up with your primary care doctor within 1 week. Return to the hospital if you experience recurrent or worsening symptoms. Plan of Treatment: as above Assessment: See Discharge Summary.
--- NOTE | 2025-01-03 12:41 | MHC.CM.PN ---
Patient is discharged home today self care. He will self transport home.
[2025-01-04 10:58] LABS: Lyme Abs Screen <0.90 index
[2025-01-08 20:39] LABS: Anti Nuclear Antibody Pattern Nuclear, Speckled; Anti Nuclear Antibody Screen POSITIVE (NEGATIVE); Anti Nuclear Antibody Titer 1:40 titer
== END 2025-01-03 13:28 | disposition home or self-care (01) | DRG 346 ==
LOC: HO.ED 16:55 → HO.EDOVER 18:32 → HO.S3 19:37
PROVIDERS: Nurse Practitioner Family; Physician Assistant; Student in an Organized Health Care Education/Training Program; Admitting Provider Internal Medicine; Emergency Provider Emergency Medicine; Visit Provider Family Medicine
DX: M06.9 Rheumatoid arthritis, unspecified (principal); E84.9 Cystic fibrosis, unspecified; M10.9 Gout, unspecified; L03.113 Cellulitis of right upper limb; M85.841 Other specified disorders of bone density and structure, right hand; I10 Essential (primary) hypertension; G47.00 Insomnia, unspecified; Z79.899 Other long term (current) drug therapy
CPT/HCPCS: 20605; 36415; 73110; 73120; 73223; 77002; 80053; 80202; 82565; 83605; 84550; 85025; 85610; 85652; 85730; 86038; 86039; 86140; 86200; 86431; 86617; 86618; 87040; 87070; 87073; 87102; 87116; 87205; 87206; 89051; 89060; 94640; 99285; A9585; J2003; J3373; J3374

== ENCOUNTER → 2024-12-30 13:22 | Outpatient (BNV) | payer MEDICAID, SELFPAY | PROVIDERS: Visit Provider Radiology Diagnostic Radiology | DX: R22.31 Localized swelling, mass and lump, right upper limb (principal) | CPT/HCPCS: 73110; 73120 ==

== ENCOUNTER 2024-12-30 18:23 | Outpatient (BNV) | payer MEDICAID, SELFPAY | END 2025-01-02 13:30 | PROVIDERS: Admitting Provider Internal Medicine; Emergency Provider Emergency Medicine; Visit Provider Radiology Diagnostic Radiology | DX: M10.431 Other secondary gout, right wrist (principal) | CPT/HCPCS: 20605; 77002 ==

== ENCOUNTER 2024-12-30 18:23 | Outpatient (BNV) | payer MEDICAID, SELFPAY | END 2024-12-31 11:32 | PROVIDERS: Admitting Provider Internal Medicine; Emergency Provider Emergency Medicine; Visit Provider Radiology Diagnostic Radiology | DX: M65.841 Other synovitis and tenosynovitis, right hand (principal) | CPT/HCPCS: 73223 ==

== ENCOUNTER → 2024-12-30 18:23 | Outpatient (BNV) | payer MEDICAID, SELFPAY | PROVIDERS: Admitting Provider Internal Medicine; Emergency Provider Emergency Medicine; Visit Provider Internal Medicine | DX: M25.431 Effusion, right wrist (principal) | CPT/HCPCS: 99222 ==

== ENCOUNTER → 2024-12-30 18:23 | Outpatient (BNV) | payer MEDICAID, SELFPAY | PROVIDERS: Admitting Provider Internal Medicine; Emergency Provider Emergency Medicine; Visit Provider Nurse Practitioner Family | DX: M25.431 Effusion, right wrist (principal) | CPT/HCPCS: 99222; 99233 ==

== ENCOUNTER 2025-01-07 13:10 | Outpatient (REF) | payer MEDICAID, SELFPAY ==
--- OUTSIDE RECORDS SUMMARY | 2025-01-07 11:00 | XMS_ITS | Encounter Summary ---
Author Organization [facility] Address [address] [place] [address] Phone Care Team Providers Care Gas Mask Assembler Name Role Phone Pedrito Suarez MD Primary Care Provider [phone] Pedrito Suarez MD Unavailable [phone] Asya Calixto MD Unavailable Celeste ChawlaSW Unavailable Alcira Johnston Unavailable [phone] Encounter Details Date Type Department Care Team (Late st Contact Info) Description 01/07/2025 11:00 AM EDT Telemedicine [facility] [address] [place] [phone] Taamnna Wade, PhD [address] [place] [phone] Social History Tobacco Use Types Packs/Day Years Used Date Smoking Tobacco: Never Assessed Sex and Gender Information Value Date Recorded Sex Assigned at Male 07/04/2024 10:02 AM EST Legal Sex Male 9:59 AM EDT Gender Identity Male 07/04/2024 10:02 AM EST Sexual Orientation Straight 07/04/2024 10 :02 AM EST documented as of this encounter Plan of Treatment Upcoming Encounters Date Type Department Care Team (Late st Contact Info) Description 01/16/2025 3:30 PM EDT Office Visit [facility] [address] [place] [phone] Zaida Vivas MD [address] [place] [address] 01/16/2025 3:30 PM EDT Clinical Support [facility] [address] [place] [phone] Yarely Ulrich, MARSHALL [address] [place] [address] documented as of this encounter Visit Diagnoses Not on filedocumented in this encounter Additional Health Concerns Infection Onset Date Last Indicated Resolved Time Cystic fibrosis 12/01/2023 12/01/2023 MDR Pseudomonas aeruginosa 12/06/2023 12/06/2023 Assessment Noted Time PHQ-9 Depression Total Score: 13 025 4:22 PM EST documented as of this encounter Care Teams Gas Mask Assembler Relationship Specialty Start Date End Date Pedrito Suarez MD [address] [address] PCP - General 09/08/23 Pedrito Suarez MD [address] [id number] PCP - Insurance PCP 09/29/17 Alcira Johnston [address] [place] [id number] PCP - Insurance Identified PCP 11/14/24 Asya Calixto MD [address] [place] [id number] HC Gas Appliance Installer 10/14/23 Celeste Chawla LICSW [address] [place] [address] Carbon Grinder Social Work 04/15/24 documented as of this encounter
[2025-01-07 13:46] LABS: MANUAL DIFF FLAG NO
--- OUTSIDE RECORDS SUMMARY | 2025-01-07 13:59 | XMS_ITS | Encounter Summary ---
Author Organization [facility] Address [address] [place] [address] [place] [phone] Phone Care Team Providers Care House Wirer Name Role Phone Pedrito Suarez MD Primary Care Provider Encounter Details Date Type Department Care Team (Late st Contact Info) Description 07/31/2020 Procedure Pass [facility] Angio Interventional Radiology [address] [place] [address] Social History Tobacco Use Types Packs/Day Years Used Date Smoking Tobacco: Never Smokeless Tobacco: Never Sex and Gender Information Value Date Recorded Sex Assigned at Male 07/21/2024 9:47 PM EDT Legal Sex Male 7:17 PM EST Gender Identity Male 07/21/2024 9:47 PM EDT Sexual Orientation Straight 07/21/2024 9: 47 PM EDT documented as of this encounter Plan of Treatment Not on file documented as of this encounter Visit Diagnoses Not on filedocumented in this encounter Additional Health Concerns Infection Onset Date Last Indicated Resolved Time CF Comment:Added as part of the [facility] Supplemental Conversion 01/24/2005 01/24/2005 CoV-Risk Comment:Per note documentation 08/04/2020 08/05/2020 1:51 PM EDT documented as of this encounter Care Teams House Wirer Relationship Specialty Start Date End Date Pedrito Suarez MD [address] [place] [address] [address] [place] [id number] PCP - General 09/18/14 documented as of this encounter Additional Source Comments The information contained in this document represents components of the legal health record. It is not the complete legal health record.[facility]
--- OUTSIDE RECORDS SUMMARY | 2025-01-07 13:59 | XMS_ITS | Encounter Summary ---
Author Organization [facility] Address [address] [place] [address] [place] [address] Phone Care Team Providers Care Scheduling Clerk Name Role Phone Pedrito Suarez MD Primary Care Provider Encounter Details Date Type Department Care Team (Late st Contact Info) Description 08/05/2020 Procedure Pass [facility] Echocardiography [address] [place] [address] Social History Tobacco Use Types Packs/Day Years [...] Time CF Comment:Added as part of the [facility] Supplemental Conversion 01/24/2005 01/24/2005 CoV-Risk Comment:Per note documentation 08/04/2020 08/05/2020 1:51 PM EDT documented as of this encounter Care Teams Scheduling Clerk Relationship Specialty Start Date End Date Pedrito Suarez MD [address] [place] [address] [address] [place] [id number] PCP - General 09/18/14 documented as of this encounter Additional Source Comments The information contained in this document represents components of the legal health record. It is not the complete legal health record.[facility]
--- OUTSIDE RECORDS SUMMARY | 2025-01-07 13:59 | XMS_ITS | Clinical Summary ---
Author Organization [facility] Address [address] [place] [address] Phone Care Team Providers Care Animal Scientist Name Role Phone Pedrito Suarez MD Primary Care Provider Allergies Active Allergy Reactions Criticality Noted Date Comments Ceftazidime Rash Low 10/23/2015 Cephalexin Rash 03/21/2012 Ciprofloxacin Hives 11/13/2001 Other Reaction(s): does not tolerate at doses greater than 1000 mg Egg Low 02/07/2024 Mild. Guaifenesin Rash 03/21/2012 Linezolid Anxiety,Diarrhea,Diz zine ss Low 02/07/2024 Medications budesonide-form oterol (SYMBICORT) 160-4.5 mcg/actuation inhaler Inhale 2 puffs into the lungs 2 (two) times a day. Active albuterol 90 mcg/actuation inhaler Inhale 2 puffs into the lungs 2 (two) times a day. Active NIFEdipine (PROCARDIA XL) 60 MG 24 hr tablet Take 1 tablet (60 mg total) by mouth daily. 08/14/2020 Active metoprolol succinate (TOPROL-XL) 25 MG 24 hr tablet Take 1 tablet by mouth every morning. 08/17/2023 Active hydrALAZINE (APRESOLINE) 50 MG tablet Take 50 mg by mouth 2 (two) times a day. Active cholecalciferol (VITAMIN D3) 5,000 unit tablet Take 1,000 Units by mouth daily. Active losartan (COZAAR) 100 MG tablet Take 1 tablet (100 mg total) by mouth daily. 30 tablet 2 12/06/2023 Active dornase nikita (PULMOZYME) 1 mg/mL nebulizer solution Inhale 2.5 mL (2.5 mg total) into the lungs 2 (two) times a day as needed. 02/07/2024 Active multivitamin per tablet Take 1 tablet by mouth daily. 02/07/2024 Active hydroCHLOROthia zide 25 MG tablet Take 1 tablet by mouth daily. 05/01/2023 Active gtupqkmk-yrr-dk on fum-folic ac 7.5 mg iron-400 mcg Tab Take 1 tablet by mouth daily. Active cloNIDine HCL (CATAPRES) 0.1 MG tabletIndicatio ns:Current moderate episode of major depressive disorder without prior episode Take 1 tablet (0.1 mg total) by mouth nightly at bedtime. 30 tablet 1 06/10/2024 Active mirtazapine (REMERON) 7.5 MG tabletIndicatio ns:Current moderate episode of major depressive disorder without prior episode Take 1 tablet (7.5 mg total) by mouth nightly at bedtime. 30 tablet 2 07/10/2024 Active Active Problems Problem Noted Date Diagnosed Date Major depressive disorder wi th single episode, in full remission 08/21/2024 Posttraumatic stress disorder 04/03/2024 Current moderate episode of major depressive disorder without prior episode 02/07/2024 Cystic fibrosis 10/19/2015 Assessment & Plan (10/29/2015 11:58 AM EDT): Initially on Ceftaz and Tobramycin. Pulmozyme and hyperal nebs continued. RT followed daily for CPT. PT followed for exercise. Patient declined lovenox sc for DVT ppx despite discussion about risks. Instructed to walk frequently during admission to prevent clots. Ceftaz stopped 2/2 rash on 10/22, Replaced with cefepime. Rash resolved. Completed antibiotics 10/28 prior to discharge Hypertension 10/18/2015 Assessment & Plan (10/29/2015 11:57 AM EDT): At baseline on Atenolol 50MG daily and Losartan 100mg daily. Blood pressure somewhat lablile 10/19 and then systolic in 80's likely 2/2 insensible losses from night sweats and fevers. Given IVF 10/20 and reduced Losartan dose to 50mg. BP since improved and patient will remain on lower dose of losartan for now Kidney stone 09/02/2014 Overview (04/21/2015): Renal calculus; Right Simple renal cyst 07/15/2014 Overview (04/21/2015): Renal cyst Resolved Problems Problem Noted Date Diagnosed Date Resolved Date Cystic fibrosis exacerbation 03/21/2017 02/07/2024 Fever 10/18/2015 02/07/2024 Assessment & Plan (10/29/2015 11:55 AM EDT): Patient admitted with Increased cough, increased sputum, and increased dyspnea all suggestive of a CF exacerbation. On last admission was treated w/ ceftaz and tobramycin. Febrile on admission with significant night sweats. Mild leukocytosis. Sinus CT with significant impaction. Started on ceftaz and added Tobramycin. Tobra levels monitored and therapeutic requiring no dose change. PICC Line placed at bedside 10/21 with no issues and removed prior to discharge. Ceftaz stopped 10/22 in setting of new diffuse macular rash. Replaced with cefepime after curbsiding ID rag production worker re cefepime vs aztreonam as aztreonam with more similar side chains to ceftaz. Rash resolved and tolerated cefepime for remainder of coarse. Completed IV antibiotics prior to discharge. Discussed with patient ordering Caysten for him to be on as outpatient chronically but he declined and felt he wouldn't use it. Encounters Date Type Department Care Team Description 10/22/2024 Telephone [facility] Psychiatric Specialties at [address] [place] [address] Royal Metcalf MD from Last 3 Months Immunizations Immunization Administration Dates Next Due Influenza, Unspecified Formulation 03/12(Deferred: Other),07/10/2012(Deferred: Other),03/08/2011(Deferred: Other) Pneumococcal polysaccharide PPSV23 03/12(Deferred: Other),07/10/2012(Deferred: Other),03/08/2011(Deferred: Other),12/24/2007(Deferred: Patient Decision - pt states he was immunized in 2006 at PCP office) Family History Medical History Relation Comments Uncoded Family History Brother Renal piper culus Relation Status Comments Brother Social History Tobacco Use Types Packs/Day Years Used Date Smoking Tobacco: Never Smokeless Tobacco: Never Tobacco Cessation:Counseling Given: Not Answered Education Answer Date Recorded Are you interested in more education? Not on val e 09/08/2022 Are you concerned about learning? Not on file 09/08/2022 No 09/08/2022 No 09/08/2022 Digital Access Answer Date Recorded No 10/10/2022 No 10/10/2022 Reliable internet access at home? Not on file 10/10/2022 Device with a working camera? Not on file Sex and Gender Information Value Date Recorded Sex Assigned at Male 07/21/2024 9:47 PM EDT Legal Sex Male 7:17 PM EST Gender Identity Male 07/21/2024 9:47 PM EDT Sexual Orientation Straight 07/21/2024 9: 47 PM EDT Last Filed Vital Signs Vital Sign Reading Time Taken Comments Blood Pressure 165/75 12/06/2023 3:51 PM EDT Pulse 76 12/06/2023 3:29 PM EDT Temperature 36.8 C (98.2 F) 12/06/2023 3:29 PM EDT Respiratory Rate 18 08/14/2020 11:54 AM EDT Oxygen Saturation 97% 12/06/2023 3:29 PM EDT Inhaled Oxygen Concentration - - Weight 83.9 kg (185 lb) 12/06/2023 3:29 PM EDT Height 167.6 cm (5' 6 ) 12/06/2023 3:29 PM EDT Body Mass Index 29.86 12/06/2023 3:29 PM EDT Plan of Treatment Health Maintenance Due Date Last Done Comments Adult Td,Tdap Booster 1976 DEPRESSION SCREENING 1988 HEPATITIS C SCREENING 1994 HIV ONE-TIME SCREENING (18-65 YEARS) 1994 COLOGUARD 2021 COLONOSCOPY 2021 COLORECTAL CANCER SCREENING 2021 FIT TEST 2021 FOBT 2021 SIGMOIDOSCOPY 2021 VIRTUAL COLONOSCOPY 2021 COVID-19 VACCINE ( season) 2024 05/25/2021, 10/08/2020, 09/10/2020 BLOOD PRESSURE 06/07/2024 12/06/2023 CREATININE LEVEL 09/26/2024 09/27/2023, , 2020, Additional history exists POTASSIUM LEVEL 09/26/2024 09/27/2023, 10/13, 2020, Additional history exists INFLUENZA VACCINE (#1) 2024 3, 02/13/2012, 02/08/2011, Additional history exists LIPID PANEL 10/29/2025 10/29/2020 SCREENING FOR DIABETES 09/26/2026 , 2020, 03/28/2017, Additional history exists SMOKING STATUS SCREENING (Once After 26 Yrs) Completed 08/21/2024 HEPATITIS A VACCINES Aged Out No long er eligible based on patient's age to complete this topic HIB VACCINES Aged Out No longer eligi ble based on patient's age to complete this topic MENINGOCOCCAL VACCINES (ACWY) Aged Out No longer eligible based on patient's age to complete this topic MENINGOCOCCAL VACCINES (B) Aged Out N o longer eligible based on patient's age to complete this topic PNEUMOCOCCAL VACCINES (0-49 years) Aged Out No longer eligible based on patient's age to complete this topic Medical Devices Not on file Procedures Procedure Name Priority Date/Time Associated Diagnosis Comments COMPREHENSIVE METABOLIC PANEL Routine 09/27/2023 4:54 PM EDT Acute renal failure, unspecified acute renal failure type LIPID PANEL Routine 10/29/2020 3:57 PM EDT CF (cystic fibrosis) GLUCOSE Routine 2020 9:36 AM EDT from Last 3 Months or Most Recently Relevant to Health Maintenance Results * (ABNORMAL) Comprehensive metabolic panel (09/27/2023 4:54 PM EDT) SODIUM 140 136 - 145 mmol/L [facility] POTASSIUM RESULT NOT REPORTED, HEMOLYSIS 3.4 - 5.1 mmol/L [facility] CHLORIDE 99 98 - 107 mmol/L [facility] CO2 25 22 - 31 mmol/L [facility] BUN 22 6 - 23 mg/dL [facility] CREATININE 1.34(H) 0.50 - 1.20 mg/dL [facility] GLUCOSE 112(H) 70 - 100 mg/dL [facility] ALBUMIN 4.0 3.5 - 5.2 g/dL [facility] TOTAL PROTEIN 7.1 6.4 - 8.3 g/dL [facility] CALCIUM 9.6 8.8 - 10.7 mg/dL [facility] ALKALINE PHOSPHATASE 90 35 - 130 U/L [facility] TOTAL BILIRUBIN 1.1(H) 0.0 - 1.0 mg/dL [facility] AST RESULT NOT REPORTED, HEMOLYSIS 10 - 50 U/L [facility] Comment: ALT RESULT NOT REPORTED, HEMOLYSIS 10 - 50 U/L [facility] Comment: GLOBULIN 3.1 2.2 - 4.2 g/dL [facility] EGFR 66 >59 mL/min/1 .73m2 [facility] Comment:Estimated glomerular filtration rate calculated using the CKD-EPI refit equation. ANION GAP 16 7 - 17 mmol/L [facility] 09/27/2023 4:54 PM EDT 09/27/2023 5:58 PM EDT Cory Camejo MD LAB BLOOD ORDERABLES Final R esult Performing Organization Address City/State/[facility] Co de Phone Number [facility] [address] [place] [phone] * (ABNORMAL) Lipid panel (10/29/2020 3:57 PM EDT) CHOLESTEROL 188 <200 mg/dL [facility] TRIGLYCERIDES 343(H) 35 - 150 mg/dL [facility] HDL 39(L) 40 - 80 mg/dL [facility] CALCULATED LDL 80 50 - 129 mg/dL [facility] VLDL 69 mg/dL [facility] CARDIAC RISK RATIO 4.8(H) 0.0 - 4.0 [facility] 10/29/2020 3:57 PM EDT 10/29/2020 4:16 PM EDT us Zaida Vivas MD, PhD LAB BLOOD ORDERAB LES Final Result [facility] [address] [place] [phone] * (ABNORMAL) Glucose (2020 9:36 AM EDT) GLUCOSE 184(H) 70 - 100 mg/dL [facility] 2020 9:36 AM EDT 2020 11:33 AM EDT Comment:#2HR us Yuly Villalobos PA-C LAB BLOOD ORDERABLES Jordana l Result Performing Organization Address [facility] Co de Phone Number [facility] [address] [place] [phone] from Last 3 Months or Most Recently Relevant to Health Maintenance Additional Health Concerns Infection Onset Date Last Indicated CF Comment:Added as part of the [facility] Supplemental Conversion 01/24/2005 01/24/2005 Insurance C3 ACO C3 ACO C3 ACO C3 ACO C3 ACO C3 ACO C3 ACO C3 ACO [facility] C3 ACO Advance Directives For more information, please contact: [phone] (9AM - 5PM [place], Monday-Monday) * Full Code (Latest Code Status on File) Date Activated Date Inactivated Comments 08/04/2020 4:59 PM Question Answer Comments Code Status Confirmed With: Patient Code Status Communicated To: Other (specify belo w) Code Discussion Comments: JULIA * Full Code (Confirmed) Date Activated Date Inactivated Comments 03/22/2017 6:41 AM 03/31/2017 9:19 PM Question Answer Comments Code Discussion Comments: Isak Sifuentes * Full Code (Presumed) Date Activated Date Inactivated Comments 03/21/2017 6:32 PM 03/22/2017 6:41 AM * Full Code (Presumed) Date Activated Date Inactivated Comments 10/18/2015 9:42 PM 10/29/2015 4:58 PM Care Teams Animal Scientist Relationship Specialty Start Date End Date Pedrito Suarez MD [address] [place] [address] [address] [place] [address] PCP - General 09/18/14 Additional Source Comments The information contained in this document represents components of the legal health record. It is not the complete legal health record.[facility]
--- OUTSIDE RECORDS SUMMARY | 2025-01-07 13:59 | XMS_ITS | Encounter Summary ---
Author Organization [facility] Address [address] [place] [address] [place] [phone] Phone Care Team Providers Care Hide Handler Name Role Phone Pedrito Suarez MD Primary Care Provider Encounter Details Date Type Department Care Team (Late st Contact Info) Description 03/23/2017 Procedure Pass [facility] [address] [place] [address] Social History Tobacco Use Types Packs/Day Years [...] Time CF Comment:Added as part of the [facility] Supplemental Conversion 01/24/2005 01/24/2005 CoV-Risk Comment:Per note documentation 08/04/2020 08/05/2020 1:51 PM EDT documented as of this encounter Care Teams Hide Handler Relationship Specialty Start Date End Date Pedrito Suarez MD [address] [place] [address] [address] [place] [address] PCP - General 09/18/14 documented as of this encounter Additional Source Comments The information contained in this document represents components of the legal health record. It is not the complete legal health record.[facility]
--- OUTSIDE RECORDS SUMMARY | 2025-01-07 13:59 | XMS_ITS | Encounter Summary ---
Author Organization [facility] Address [address] [place] [address] [place] [address] Phone Care Team Providers Care University Administrator Name Role Phone Pedrito Suarez MD Primary Care Provider Encounter Details Date Type Department Care Team (Late st Contact Info) Description 07/31/2020 Telephone [facility] Angio Interventional Radiology [address] [place], [place] [phone] Reyes Staton RN [address] [place] [phone] [email or web address] Social History Tobacco Use Types Packs/Day Years [...] Time CF Comment:Added as part of the [facility] Supplemental Conversion 01/24/2005 01/24/2005 CoV-Risk Comment:Per note documentation 08/04/2020 08/05/2020 1:51 PM EDT documented as of this encounter Care Teams University Administrator Relationship Specialty Start Date End Date Pedrito Suarez MD [address] [place] [address] [address] [place] [address] PCP - General 09/18/14 documented as of this encounter Additional Source Comments The information contained in this document represents components of the legal health record. It is not the complete legal health record.[facility]
--- OUTSIDE RECORDS SUMMARY | 2025-01-07 13:59 | XMS_ITS | Clinical Summary ---
Author Organization [facility] Address [address] [place] [address] Care Team Providers Care Manager Distribution Name Role Phone Pedrito Suarez MD Primary Care Provider [phone] Medical History Medical History Date Comments Hypertension DX:Hypertension Cystic fibrosis (CMS/HCC V24, CMS/HCC V28) DX:Cystic fibrosis (HCC) Social History Tobacco Use Types Packs/Day Years Used Date Smoking Tobacco: Never Alcohol Use Standard Drinks/Week Comments Not Currently 0 (1 standard drink = 0.6 oz pur e alcohol) Sex and Gender Information Value Date Recorded Sex Assigned at Not on file Legal Sex Male 5:01 PM EDT Gender Identity Not on file Sexual Orientation Not on file Obstetrics History Plan of Treatment Health Maintenance Due Date Last Done Comments DTaP,Tdap,and Td Vaccines (1 - Tdap) 08/14/1995 Hepatitis B Vaccines (1 of 3 - 19+ 3-dose series) 08/14/1995 Cholesterol Screening (Lipid Panel) 12/09/2023 Colorectal Cancer Screening: Colonoscopy 12/09/2023 HIV Screening 12/09/2023 Hepatitis C Screening 12/09/2023 Social Influencers of Health Screening 12/09/2023 COVID-19 Vaccine ( - 2023-2 5 season) 2024 Depression Screening 05/15/2024 Influenza Vaccine (#1) 2025 HIB Vaccines Aged Out No longer eligi ble based on patient's age to complete this topic HPV Vaccines Aged Out No longer eligi ble based on patient's age to complete this topic Hepatitis A Vaccines Aged Out No long er eligible based on patient's age to complete this topic IPV Vaccines Aged Out No longer eligi ble based on patient's age to complete this topic MMR Vaccines Aged Out No longer eligi ble based on patient's age to complete this topic Meningococcal ACWY Vaccine Aged Out N o longer eligible based on patient's age to complete this topic Meningococcal B Vaccine Aged Out No l onger eligible based on patient's age to complete this topic Pneumococcal Vaccine: Pediat rics (0 to 5 Years) and At-Risk Patients (6 to 49 Years) Aged Out No longer eligible b ased on patient's age to complete this topic RSV Immunization Patients Un yobani 20 months Aged Out No longer eligible b ased on patient's age to complete this topic Varicella Vaccines Aged Out No longer eligible based on patient's age to complete this topic Care Teams Manager Distribution Relationship Specialty Start Date End Date Pedrito Suarez MD [address] [place] [address] Dr Edgar [place] PCP - General 07/17/23
--- OUTSIDE RECORDS SUMMARY | 2025-01-07 13:59 | XMS_ITS | Encounter Summary ---
Author Organization [facility] Address [address] [place] [address] Phone Care Team Providers Care Armature Winder Repair Name Role Phone Pedrito Suarez MD Primary Care Provider Pedrito Suarez MD Unavailable Asya Calixto MD Unavailable Pedrito Suarez MD Unavailable [phone] Celeste Chawla [facility] Unavailable [facility] Unavailable Alcira Johnston Unavailable [phone] Encounter Details Date Type Department Care Team (Late st Contact Info) Description 03/05/2024 Orders Only [facility] [address] [place] [phone] Lilli Suárez RN [address] [place] [address] Cystic fibrosis (HCC) Social History Tobacco Use Types [...] Description 01/16/2025 3:30 PM EDT Office Visit [facility] [address] [place] [phone] Zaida Vivas MD [address] [place] [address] 01/16/2025 3:30 PM EDT Clinical Support [facility] [address] [place] [phone] Yarely Ulrich, MARSHALL [address] [place] [address] documented as of this encounter Visit Diagnoses Diagnosis Cystic fibrosis (HCC) 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 documented in this encounter Additional Health Concerns Infection Onset Date Last Indicated Resolved Time Cystic fibrosis 12/01/2023 12/01/2023 MDR Pseudomonas aeruginosa 12/06/2023 12/06/2023 documented as of this encounter Care Teams Armature Winder Repair Relationship Specialty Start Date End Date Pedrito Suarez MD [address] [address] PCP - General 09/08/23 Pedrito Suarez MD [address] [address] PCP - Insurance PCP 09/29/17 Pedrito Suarez MD [address] [address] PCP - Insurance Identified PCP 11/13/23 08/19/24 [facility] [address] [place] [address] PCP - Insurance Identified PCP 08/20/24 11/13/24 Alcira Johnston [address] [place] [id number] PCP - Insurance Identified PCP 11/14/24 Asya Calixto MD [address] [place] [address] [facility] [employer] Systems Operations Specialist 10/14/23 Celeste Chawla LICSW [address] [place], [place] [phone] Working Foreman Social Work 04/15/24 documented as of this encounter
--- OUTSIDE RECORDS SUMMARY | 2025-01-07 13:59 | XMS_ITS | Clinical Summary ---
Author Organization [facility] Address [address] [facility] 7 [place] [address] Care Team Providers Care Ultrasound Tech Name Role Phone Unavailable Primary Care Provider Unavailabl e Social History Tobacco Use Types Packs/Day Years Used Date Smoking Tobacco: Never Assessed Sex and Gender Information Value Date Recorded Sex Assigned at Not on file Legal Sex Male 2:06 AM EDT Gender Identity Not on file Sexual Orientation Not on file Plan of Treatment Health Maintenance Due Date Last Done Comments CT Colonography 1976 Colonoscopy 1976 Colorectal Cancer Screening 1976 Depression Screening 1976 FIT DNA/Cologuard 1976 FIT 1976 FOBT 1976 HIV Screening 1976 Lipid Panel 1976 SDOH Screening 1976 Sigmoidoscopy 1976 Disability Screening 1976 Alcohol/Substance Use Screening 1988 Tobacco Screening 1988 Family Planning (PISQ) 08/14/1991 Hepatitis C Screening 1994 DTaP/Tdap/Td Vaccines (1 - Tdap) 08/14/1995 Hepatitis B Vaccines (1 of 3 - 19+ 3-dose series) 08/14/1995 COVID-19 Vaccine ( - 2023-2 5 season) 2024 Influenza Vaccine (#1) 2025 Zoster Vaccines (1 of 2) 2026 RSV Patients and Pa tients Aged 60 years or older (1 - 1-dose 75+ series) 08/14/2051 HIB Vaccines Aged Out No longer eligi [...] patient's age to complete this topic Meningococcal Vaccine Aged Out No ti nadja eligible based on patient's age to complete this topic Pneumococcal Vaccine: Pediat rics (0 to 5 Years) and At-Risk Patients (6 to 49) Years Aged Out No longer eligible b ased on patient's age to complete this topic RSV under 20 months Aged Out No longe r eligible based on patient's age to complete this topic Rotavirus Vaccines Aged Out No longer eligible based on patient's age to complete this topic
--- OUTSIDE RECORDS SUMMARY | 2025-01-07 13:59 | XMS_ITS | Encounter Summary ---
Author Organization [facility] Address [address] [place] [address] [place] [address] Phone Care Team Providers Care Ski Patrol Name Role Phone Pedrito Suarez MD Primary Care Provider Encounter Details Date Type Department Care Team (Late st Contact Info) Description 03/17/2017 Telephone [facility] Angio Interventional Radiology [address] [place] [phone] Olga Em, TANIA Social History Tobacco Use Types Packs/Day Years [...] Time CF Comment:Added as part of the [facility] Supplemental Conversion 01/24/2005 01/24/2005 CoV-Risk Comment:Per note documentation 08/04/2020 08/05/2020 1:51 PM EDT documented as of this encounter Care Teams Ski Patrol Relationship Specialty Start Date End Date Pedrito Suarez MD [address] [place] [address] Dr [place] [address] PCP - General 5/7/15 documented as of this encounter Additional Source Comments The information contained in this document represents components of the legal health record. It is not the complete legal health record.[facility]
--- OUTSIDE RECORDS SUMMARY | 2025-01-07 13:59 | XMS_ITS | Clinical Summary ---
Author Organization [facility] Address [address] [place] [address] Care Team Providers Care Wood Flour Miller Name Role Phone Pedrito Suarez MD Primary Care Provider [phone] Allergies Active Allergy Reactions Criticality Noted Date Comments Cephalexin 03/23/2015 Medications Medication Sig Dispensed Refills Start Date End Date Status diphenhydrAMINE (BENADRYL) 25 mg capsule Take 2 capsules (50 mg total) by mouth every 6 (six) hours as needed for itching or allergies. 30 capsule 0 03/23/2015 Active METOPROLOL SUCCINATE PO Take by mouth. 0 Active losartan (COZAAR) tablet 25 mg Take 1 tablet (25 mg total) by mouth daily. 0 Active hydrALAZINE (APRESOLINE) 25 MG tablet Take 1 tablet (25 mg total) by mouth 3 (three) times a day. 0 Active Dornase Delano (PULMOZYME IN) Inhale into the lungs. 0 Active Immunizations Name Administration Dates Next Due Tdap 07/17/2023() Social History Tobacco Use Types Packs/Day Years Used Date Smoking Tobacco: Never Tobacco Cessation:Counseling Given: Not Answered Alcohol Use Standard Drinks/Week Comments Not Currently 0 (1 standard drink = 0.6 oz pur e alcohol) Sex and Gender Information Value Date Recorded Sex Assigned at Not on file Gender Identity Not on file Sexual Orientation Not on file Job Start Date Occupation Industry Not on file Not on file Not on file Last Filed Vital Signs Vital Sign Reading Time Taken Comments Blood Pressure 174/117 07/17/2023 11:30 PM EST Pulse 74 07/17/2023 11:30 PM EST Temperature 36.5 C (97.7 F) 07/17/2023 6:21 PM EST Respiratory Rate 18 07/17/2023 11:30 PM EST Oxygen Saturation 95% 07/17/2023 11:30 PM EST Inhaled Oxygen Concentration - - Weight 84.8 kg (187 lb) 07/17/2023 6:21 PM EST Height 167.6 cm (5' 6 ) 07/17/2023 6:21 PM EST Body Mass Index 30.18 07/17/2023 6:21 PM EST Plan of Treatment Health Maintenance Due Date Last Done Comments Hepatitis B Vaccines (1 of 3 - 3-dose series) 1976 Hepatitis C Screening 1976 COVID-19 Vaccine (#1) 02/12/1977 Depression Screening 1988 Preventative Health Evaluation 1994 DTap / Tdap / Td (1 - Tdap) 08/14/1995 Colon Cancer Screening (Colonoscopy) 2021 Influenza Vaccine (#1) 2025 Pneumococcal Vaccine Aged Out No long er eligible based on patient's age to complete this topic RSV Ped < 20 months Aged Out No longe r eligible based on patient's age to complete this topic Care Teams Wood Flour Miller Relationship Specialty Start Date End Date Pedrito Suarez MD [address] [place] [address] Dr [address] [place] [address] PCP - General Facilities Supervisor 07/17/23
--- OUTSIDE RECORDS SUMMARY | 2025-01-07 13:59 | XMS_ITS | Encounter Summary ---
Author Organization [facility] Address [address] [place] [address] Phone Care Team Providers Care Promotions Associate Name Role Phone Pedrito Suarez MD Primary Care Provider [phone] Pedrito Suarez MD Unavailable Asya Calixto MD Unavailable [phone] Pedrito Suarez MD Unavailable Celeste Chawla FEATHER WASHER Unavailable [phone] [facility] Unavailable [phone] Alcira Johnston Unavailable [phone] Reason for Visit * Reason Comments Social work f/u; financial insecurity Encounter Details Date Type Department Care Team (Late st Contact Info) Description 11/02/[address] [phone] Celeste Chawla, FEATHER WASHER [address] [place] [address] Social History Tobacco Use Types Packs/Day Years Used Date Smoking Tobacco: Never Assessed Sex and Gender Information Value Date Recorded Sex Assigned at Male 07/04/2024 10:02 AM EST Legal Sex Male 9:59 AM EDT Gender Identity Male 07/04/2024 10:02 AM EST Sexual Orientation Straight 07/04/2024 10 :02 AM EST documented as of this encounter Progress Notes * Celeste Chawla, FEATHER WASHER - 11/02/2023 3:26 PM EDT Confidential Social Work Brief Screen (PAS) Psychosocial Acuity Scale Psychosocial Issue (Insurance/Finances): Financial insecurity Level: High Social Work Psychosocial Assessment Confidential Custody Status: Preferred Languages: Patient Preferred Language: Brazilian Referral Data Visit Type: Not in person Time Spent: Not in person: 30 min Program List: Cystic Fibrosis Adults Referral Source: Other (comment) (100% Referral) Interventions: Ongoig psychosocial support, Facilitation of care plan with medical team Does the patient have an active IEP or 504?: no Medical Record Reviewed?: yes Confidentiality discussed?: yes Contact information provided?: yes Living Situation: Owns a home with his mother Follow up Consult needed?: yes (Ongoing SW support related to financial insecurity) Cystic Fibrosis Outpatient Social Work Note Presenting concerns: financial insecurity CF Security Tech: Zaida Vivas MD, PhD Visit Type: Virtual - Phone Total Time: 30 minutes Safety concerns today?: No Wilman (he/him/his) is a 48 y.o. patient diagnosed with cystic fibrosis who is followed by Dr. Vivas in the [facility]. Patient is known to this SW. Chart reviewed and discussed with provider. SW met with patient via telephone to f/u on patient's progress toward FML[place] application completion and [place] application, and to follow up regarding RAFT application to support with utilities. Progress Toward Social Work Goals FINANCIAL INSECURITY Patient reported that he has still not been able to confirm with doctor's office that they can support with FMLA application, though he plans to continue to pursue. SW encouraged patient to focus, too, on [place] application, as this is what will be able to provide financial support while patient is not working. SW clarified again the distinction between [place]ML[place] and [place], explaining that [place] is the program that will provide payment. Patient had expected to receive payment after completing FMLA for time off in April due to illness; SW explained that patient would need to also complete [place] to access payment. SW confirmed patient did receive the information of where to apply from this SW. Patient confirmed he did receive and still has access in his email. He made plan to set up an account and attempt to begin the application. Patient stated he would call this SW in case he ran into any problems in completion. Patient shared that while [employer] had paid for outstanding mortgage, his new application for support with utilities has continued to be closed, and he will need to reapply again. He continues to work with [employer] on this. MENTAL HEALTH Patient shared that he has been feeling overwhelmed in navigating these processes and systems and in the midst of significant financial stress. He shared that his mom's dog has also been sick and that they are not sure what is wrong. He is not able to afford the needed tests right now, so he is unsure what will be possible in taking care of their dog, which has been understandably worrisome. WALTER coordinated with psychologist Tamanna Wade and gem setter to confirm patient would be able to have an appointment scheduled for a psychotherapy visit soon. FOLLOW-UP SW will remain available and continue to follow. Patient is aware of SW ongoing availability and contact information. Per Cystic Fibrosis Foundation guidelines, all patients diagnosed with cystic fibrosis are requiredto have an assigned marriage and family social worker and be encouraged to meet annually with a marriage and family social worker for social work needs assessment and mental health screenings. [facility] Pager: [phone] documented in this encounter Plan of Treatment Upcoming Encounters Date Type Department Care Team (Late st Contact Info) Description 01/16/2025 3:30 PM EDT Office Visit [facility] [address] [place] [phone] Zaida Vivas MD [address] [place] [address] 01/16/2025 3:30 PM EDT Clinical Support [facility] [address] [place] [phone] Yarely Ulrich, RD [address] [place] [address] documented as of this encounter Visit Diagnoses Not on filedocumented in this encounter Additional Health Concerns Infection Onset Date Last Indicated Resolved Time Cystic fibrosis 12/01/2023 12/01/2023 MDR Pseudomonas aeruginosa 12/06/2023 12/06/2023 documented as of this encounter Care Teams Promotions Associate Relationship Specialty Start Date End Date Pedrito Suarez MD [address] [address] PCP - General 09/08/23 Pedirto Suarez MD [address] [address] PCP - Insurance PCP 09/29/17 Pedrito Suarez MD [address] [address] PCP - Insurance Identified PCP 11/13/23 08/19/24 [facility] [address] [place] [address] PCP - Insurance Identified PCP 08/20/24 11/13/24 Alcira Johnston [address] [address] PCP - Insurance Identified PCP 11/14/24 Asya Calixto MD [address] [place] [address] HC Head Still Operator 10/14/23 Celeste Chawla LICSW [address] [place] [address] Pcu Rn Social Work 04/15/24 documented as of this encounter
--- OUTSIDE RECORDS SUMMARY | 2025-01-07 13:59 | XMS_ITS | Clinical Summary ---
Author Organization [facility] Address [address] [place] [address] Phone Care Team Providers Care Stationary Engineer Apprentice Name Role Phone Pedrito Suarez MD Primary Care Provider Pedrito Suarez MD Unavailable [phone] Asya Calixto MD Unavailable [phone] Celeste ChawlaSW Unavailable [phone] Alcira Johnston Unavailable [phone] Allergies Active Allergy Reactions Criticality Noted Date Comments Ceftazidime Rash Low 10/23/2015 Reaction Type from PowerChart: Allergy; 10/29/2015 09:45 - Rash Cephalexin Rash 06/10/2005 Est. Onset: 12/20/1999 Ciprofloxacin Hives 11/13/2001 Other Reaction(s): does not tolerate at doses greater than 1000 mg Reaction Type from PowerChart: Adverse Effect; Est. Onset: 11/13/2001 Egg Low 02/07/2024 Mild, has tongue tingling with large amount of eggs. Guaifenesin Rash 06/10/2005 Est. Onset: 12/20/1999 Linezolid Anxiety,Diarrhea,Diz zine ss Low 04/23/2013 Other Reaction(s): ANXIETY, Diarrhea, Dizziness Reaction Type from PowerChart: Adverse Effect; Medications dornase nikita (Pulmozyme) 1 mg/mL nebulizer solution Inhale 1 vial daily as needed. 04/26/20 23 Active losartan (Cozaar) 50 mg tablet Dose: 50 mg, Dose Amount: 1 tab, PO, daily, Dispense Quantity: 30 tab, Refills: 0, Entered: 01/12/16 17:29:05 [facility] [id number] 01/12/20 16 Active metoprolol succinate XL 25 mg extended release tablet Take 25 mg by mouth 1 time each day. Patient unsure of dose but thinks he takes 25mg daily. Active multivit-min/iron fum/folic ac (multivitamin with minerals) 7.5 mg iron-400 mcg tablet Take 1 tablet by mouth 1 time each day. Takes Postcard & Tag OTC multivitamin 1 tab daily Active NIFEdipine XL 30 mg extended release tabletIndications: Hypertension, unspecified type Take 30 mg = 1 tablet by mouth 1 time each day. Do not crush, chew, or split. 30 tablet 11 04/28/20 24 025 Active cholecalciferol 25 MCG (1000 UT) capsuleIndications :Cystic fibrosis (HCC) Take 25 mcg = 1 capsule by mouth 1 time each day. Dose: 1,000 unit, Dose Amount: 1 cap, PO, daily 90 capsule 3 05/13/20 24 Active hydrALAZINE 50 mg tabletIndications: Cystic fibrosis (HCC),Primary hypertension Take 50 mg = 1 tablet by mouth 2 times a day. 60 tablet 3 09/04/19 25 Active mirtazapine 15 mg disintegrating tablet Take 7.5 mg by mouth at bedtime. Active cloNIDine 0.1 mg tablet Take 50 mcg by mouth as needed at bedtime (insomnia). Active albuterol HFA 90 mcg/act inhalerIndications :Cystic fibrosis (HCC) Inhale 2 puffs every 6 hours if needed for wheezing or shortness of breath. 18 g 6 12/04/19 25 Active budesonide-formote roL 160-4.5 mcg/actuation inhalerIndications :Cystic fibrosis (HCC) Inhale 2 puffs 2 times a day. 1 each 6 12/25/19 25 Active budesonide-formote roL 160-4.5 mcg/actuation inhalerIndications :Cystic fibrosis (HCC) Inhale 2 puffs 2 times a day. 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) 04/19/2024 Encounters Date Type Department Care Team Description 01/07/2025 11:00 AM EDT Telemedicine [facility] [address] [place] [phone] Tamanna Wade, PhD 12/24/2024 3:00 PM EDT Telemedicine [facility] [address] [place] [phone] Tamanna Wade, PhD 12/24/2024 Telephone [facility] [address] [place] [phone] Zaida Vivas MD Med Refill 12/03/2024 3:00 PM EDT Telemedicine [facility] [address] [place] [phone] Tamanna Wade, PhD Current moderate episode of major depressive disorder without prior episode (HCC) (Primary Dx); BRITTA (generalized anxiety disorder); PTSD (post-traumatic stress disorder) 12/03/2024 1:00 PM EDT Telemedicine [facility] [address] [place] [phone] Yuly Vyas CNP Cystic fibrosis (HCC) 11/21/2024 9:00 AM EDT Telemedicine [facility] [address] [place] [phone] Tamanna Wade, PhD BRITTA (generalized anxiety disorder) (Primary Dx); Current moderate episode of major depressive disorder without prior episode (HCC); PTSD (post-traumatic stress disorder) 11/05/2024 11:00 AM EDT Telemedicine [facility] [address] [place] [phone] Tamanna Wade, PhD BRITTA (generalized anxiety disorder) (Primary Dx); Current moderate episode of major depressive disorder without prior episode (HCC); PTSD (post-traumatic stress disorder) 10/23/2024 10:00 AM EDT Telemedicine [facility] [address] [place] [phone] Tamanna Wade, PhD BRITTA (generalized anxiety disorder) (Primary Dx); Current moderate episode of major depressive disorder without prior episode (HCC); PTSD (post-traumatic stress disorder) 10/14/2024 Telephone [facility] [address] [place] [phone] Celeste Chawla LICSW SW follow up 10/11/2024 Telephone [facility] [address] [place] [phone] Celeste Chawla LICSW 10/08/2024 9:00 AM EDT Consult [facility] [address] [place] [phone] Tamanna Wade, PhD BRTITA (generalized anxiety disorder) (Primary Dx); Current moderate episode of major depressive disorder without prior episode (HCC); PTSD (post-traumatic stress disorder) 10/08/2024 Travel from Last 3 Months Immunizations Immunization Administration Dates Next Due Influenza, Unspecified 02/19/2013,2011,02/13/2012,02/08/2011, 0,04/23/2004,03/27/2003 Moderna SARS-CoV-2 05/25/2021,10/08/2020, 021 Social History Tobacco Use Types Packs/Day Years Used Date Smoking Tobacco: Never Assessed Sex and Gender Information Value Date Recorded Sex Assigned at Male 07/04/2024 10:02 AM EST Legal Sex Male 9:59 AM EDT Gender Identity Male 07/04/2024 10:02 AM EST Sexual Orientation Straight 07/04/2024 10 :02 AM EST Last Filed Vital Signs Vital Sign Reading Time Taken Comments Blood Pressure 185/110 09/03/2024 3:32 PM EDT provider notified Pulse 72 09/03/2024 3:32 PM EDT Temperature 36.8 C (98.2 F) 09/03/2024 3:32 PM EDT Respiratory Rate 20 09/03/2024 3:32 PM EDT Oxygen Saturation 96% 09/03/2024 3:3 2 PM EDT Inhaled Oxygen Concentration - - Weight 81 kg (178 lb 9.2 oz) 09/03/2024 3:32 PM EDT Height 165 cm (5' 4.96 ) 09/03/2024 3:3 2 PM EDT Body Mass Index 29.75 09/03/2024 3:32 PM EDT Plan of Treatment Upcoming Encounters Date Type Department Care Team (Late st Contact Info) Description 01/16/2025 3:30 PM EDT Office Visit [facility] [address] [place] [phone] Zaida Vivas MD [address] [place] [address] 01/16/2025 3:30 PM EDT Clinical Support [facility] [address] [place] [phone] Yarely Ulrich, MARSHALL [address] [place] [address] Health Maintenance Due Date Last Done Comments HIV Screening 1976 MMR Vaccines (1 of 1 - Standard series) 1977 DTaP/Tdap/Td Vaccines (1 - Tdap) 08/14/1983 Varicella Vaccines (1 of 2 - 13+ 2-dose series) 1989 Hepatitis C Screening 1994 Hepatitis B Vaccines (1 of 3 - 19+ 3-dose series) 08/14/1995 COVID-19 Vaccine ( season) 2024 05/25/2021, 10/08/2020, 09/10/2020 Influenza Vaccine (#1) 2025 3, 02/13/2012, 02/13/2012, Additional history exists HIB Vaccines Aged Out No longer eligi [...] age to complete this topic Pneumococcal Vaccine: Pediatrics (0 to 5 Years) and At-Risk Patients (6 to 49 Years) Aged Out No longer eligible based on patient's age to complete this topic Rotavirus Vaccines Aged Out No longer eligible based on patient's age to complete this topic Additional Health Concerns Infection Onset Date Last Indicated Cystic fibrosis 12/01/2023 12/01/2023 MDR Pseudomonas aeruginosa 12/06/202312/05 [place] Care Teams Stationary Engineer Apprentice Relationship Specialty Start Date End Date Pedrito Suarez MD [facility] [address] [place] [address] PCP - General 09/08/23 Pedrito Suarez MD [facility] [address] [place] [address] PCP - Insurance PCP 09/29/17 Alcira Johnston [facility] [address] [place] [address] PCP - Insurance Identified PCP 11/14/24 Asya Calixto MD [address] [place] [id number] HC Brush Cutter 10/14/23 Celeste Chawla LICSW [address] [place] [address] Corporate General Manager Social Work 04/15/24
[2025-01-07 14:30] LABS: Hematocrit 40.2 % (42.0-52.0); Hemoglobin 13.6 g/dl (14.0-18.0); Imm Gran Abs Auto 0.05 X10*3/uL (0.00-0.03); Imm Gran Pct Auto 0.5 % (0.0-0.4); Lymphocytes Absolute Auto 1.3 X10*3/uL (1.2-4.9); Mean Corpuscular HGB Conc 33.8 g/dl (31.0-36.0); Mean Corpuscular Hemoglobin 28.3 pg (27.0-33.0); Mean Corpuscular Volume 83.8 fL (80.0-98.0); NRBC Abs Auto 0.000 X10*3/uL (0.0-0.012); NRBC Pct Auto 0.0 /100WBC (0.0-0.2); Platelet Count 368 X10*3/uL (160-400); Red Blood Count 4.80 X10*6/uL (4.60-5.80); White Blood Count 10.4 X10*3/uL (4.8-10.8)
[2025-01-07 15:04] LABS: Alanine Aminotransferase 25 U/L (0-40); Albumin Level 4.3 g/dL (3.5-5.0); Alkaline Phosphatase 86 U/L (39-117); Anion Gap 11 (12-20); Aspartate Amino Transferase 34 U/L (5-37); Blood Urea Nitrogen 33 mg/dL (9-16); Calcium 9.4 mg/dL (8.4-10.2); Carbon Dioxide 28 mmol/L (22-29); Chloride 103 mmol/L (96-108); Cholesterol 175 mg/dL (<200); Estimated Glomerular Filt Rate 46; HDL Cholesterol 44 mg/dL (>40); Potassium 3.4 mmol/L (3.3-5.1); Sodium 139 mmol/L (135-145); Total Protein 7.2 g/dL (6.5-8.0); Triglycerides 187 mg/dL (<150)
[2025-01-10 18:24] LABS: TS Negative Control Passed; TS Panel A 0; TS Panel B 0; TS Positive Control Passed; TSpotTB Negative (Negative)
== END 2025-01-07 13:11 | disposition home or self-care (01) ==
LOC: HO.LAB 13:10
PROVIDERS: PCP Internal Medicine; Visit Provider Internal Medicine
DX: Z00.00 Encounter for general adult medical examination without abnormal findings (principal); I10 Essential (primary) hypertension; E84.9 Cystic fibrosis, unspecified; Z11.1 Encounter for screening for respiratory tuberculosis; Z13.31 Encounter for screening for depression
CPT/HCPCS: 36415; 80053; 80061; 85025; 86481

== ENCOUNTER 2025-03-07 14:06 | Outpatient (AMB) | payer MEDICAID, SELFPAY ==
--- NOTE | 2025-03-07 14:09 | HO.NEPHOV_ITS ---
Vital Signs 03/07/25 14:15 Height 5 ft 6 in Weight 178 lb BMI 28.7 BP 152/100 H Blood Pressure Location Lt brachial Position Sitting Pulse 96 Pulse Source Pulse Oximeter Pulse Oximetry (%) 97 Oxygen Delivery Method Room Air Intake Visit Reasons: ENP: Essential HTN, Chronic kidney dz, left vm Ditching Machine Operating Engineer Required: No Accompanied by: Self / Same As Patient Allergies guaifenesin (From ROBITUSSIN-DM) Allergy (Unknown, Verified 03/07/25 14:15) HIVES ciprofloxacin (From Cipro) Allergy (Verified 03/07/25 14:15) Hives From KEFLEX Allergy (Unknown, Uncoded 10/26/22 12:27) HIVES From ROBITUSSIN-DM Allergy (Unknown, Uncoded 10/26/22 12:27) HIVES Medication List - Last Reconciled 03/07/25 by Henrik Ochoa MD albuterol sulfate 90 mcg/actuation (Ventolin HFA) 2 puffs inhalation Q6H PRN budesonide-formoterol 160-4.5 mcg/actuation (Symbicort) 2 puffs inhalation BID bupropion HCl XL 150 mg PO DAILY PRN cholecalciferol (vitamin D3) 25 mcg PO DAILY clonidine HCl 0.1 mg PO DAILY PRN hydralazine 50 mg PO BID indomethacin 50 mg PO TID PRN losartan 50 mg PO BID magnesium 125 mg PO BEDTIME PRN metoprolol succinate ER 25 mg PO DAILY mirtazapine 7.5 mg PO BEDTIME PRN multivitamin 1 tab PO DAILY HPI Comments Details: - The patient is a 49-year-old male presenting with decreased kidney function. - Chronic Kidney Disease: Referred for low kidney function, creatinine at 1.6 mg/dL, indicating 46% function. - Cystic Fibrosis: Managed with inhalers and antibiotics, last infection in 2020. - Gout: Last flare in December, treated with indomethacin. - Hypertension: Managed with losartan, hydralazine, and metoprolol, recent BP 150/100 mmHg. [facility] Medical History (Updated 03/07/25 @ 14:31 by Henrik Ochoa MD) Pancreatitis Gout Cystic fibrosis High blood pressure Surgical History (Updated 03/07/25 @ 14:11 by Jackelyn Lucero MA) History of kidney surgery Social History Household Members: Family Housing: House Do you presently have visiting nurse or other home services: No Patient Tobacco Use Status: Never used Tobacco service: No Current occupational status: employed Current occupation: customer service at airport/ rt hand Review of Systems Const Denies fever(s) and Denies weight loss Card Denies chest pain Resp Denies cough and Denies hemoptysis GI Denies abdominal pain, Denies diarrhea and Denies nausea Musc Denies back pain Neuro Denies focal weakness Physical Exam Vital Signs: Last Vital Signs Pulse 96 03/07/25 14:15 BP 152/100 H 03/07/25 14:15 Pulse Ox 97 03/07/25 14:15 Oxygen Delivery Method Room Air 03/07/25 14:15 BMI result Body Mass Index 28.7 Comfortable Neck supple no JVD. Lungs entry equal no rales. Heart S1-S2 heard no gallop or rub. Abdomen soft nontender. Neuro alert awake oriented. No asterixis. Extremities no edema. Results Reviewed Nephrology Results: Hgb, (14.0-18.0) 13.6 g/dl L 01/07/25 WBC, (4.8-10.8) 10.4 X10*3/uL 01/07/25 Plt Count, (160-400) 368 X10*3/uL Δ 01/07/25 Sodium, (135-145) 139 mmol/L 01/07/25 Potassium, (3.3-5.1) 3.4 mmol/L 01/07/25 Chloride, (96-108) 103 mmol/L 01/07/25 Carbon Dioxide, (22-29) 28 mmol/L 01/07/25 BUN, (9-16) 33 mg/dL H 01/07/25 Creatinine, (0.5-1.4) 1.60 mg/dL H 01/07/25 Calcium, (8.4-10.2) 9.4 mg/dL Δ 01/07/25 Assessment & Plan Assessment & Plan (1) CKD (chronic kidney disease): Code(s): N18.9 - Chronic kidney disease, unspecified Category: Medical Plan 1. Chronic Kidney Disease Probably has stage III CKD. He could have a component of ALBER due to hypoperfusion from the use of NSAIDs. - Recheck kidney function with creatinine levels after stopping indomethacin. - Encourage hydration to support kidney function. Workup as outlined below 2. Cystic Fibrosis - Continue management with coremaker floor, using inhalers and antibiotics as needed. 3. Gout - Monitor uric acid levels, consider allopurinol if high. 4. Hypertension - add amlodipine 5 mg daily for blood pressure control. - Regularly monitor blood pressure, adjust medications as needed. Orders: Orders Basic Metabolic Panel 03/07/25 N18.9 - Chronic kidney disease, unspecified Total Protein Urine Random 03/07/25 N18.9 - Chronic kidney disease, unspecified Creatinine Urine 03/07/25 N18.9 - Chronic kidney disease, unspecified Uric Acid 03/07/25 N18.9 - Chronic kidney disease, unspecified Complete Blood Count Auto Diff 03/07/25 N18.9 - Chronic kidney disease, unspecified UA and rflx microscopic 03/07/25 N18.9 - Chronic kidney disease, unspecified Magnesium 03/07/25 N18.9 - Chronic kidney disease, unspecified Medications: New amlodipine 5 mg PO DAILY 30 tabs 1RF Coding Level of Care Code New Pt Level 4 (30906) Diagnoses CKD (chronic kidney disease) N18.9
[2025-03-07 14:15] VITALS: BP 152/100; PULSE 96; O2SAT 97; BMI 28.7
--- OUTSIDE RECORDS SUMMARY | 2025-03-07 16:08 | XMS_ITS | Encounter Summary ---
Author Organization [facility] Address [address] [place] [address] [place] [phone] Phone Care Team Providers Care Plating And Point Assembly Supervisor Name Role Phone Pedrito Suarez MD Primary Care Provider Encounter Details Date Type Department Care Team (Late st Contact Info) Description 03/17/2017 Telephone [facility] Angio Interventional Radiology [address] [place] [phone] Olga Em, TANIA Social History Tobacco Use [...] Time CF Comment:Added as part of the [facility] Supplemental Conversion 01/24/2005 01/24/2005 CoV-Risk Comment:Per note documentation 08/04/2020 08/05/2020 1:51 PM EDT documented as of this encounter Care Teams Plating And Point Assembly Supervisor Relationship Specialty Start Date End Date Pedrito Suarez MD [address] [place] [address] [address] [place] [address] PCP - General 5/7/15 documented as of this encounter Additional Source Comments The information contained in this document represents components of the legal health record. It is not the complete legal health record.[facility]
--- OUTSIDE RECORDS SUMMARY | 2025-03-07 16:08 | XMS_ITS | Encounter Summary ---
Author Organization [facility] Address [address] [place] [address] [place] [address] Phone Care Team Providers Care Ribbon Lapper Tender Name Role Phone Pedrito Suarez MD Primary Care Provider Encounter Details Date Type Department Care Team (Late st Contact Info) Description 03/23/2017 Procedure Pass [facility] [address] [place] [address] Social History Tobacco Use Types Packs/Day Years [...] Time CF Comment:Added as part of the [facility] Supplemental Conversion 01/24/2005 01/24/2005 CoV-Risk Comment:Per note documentation 08/04/2020 08/05/2020 1:51 PM EDT documented as of this encounter Care Teams Ribbon Lapper Tender Relationship Specialty Start Date End Date Pedrito Suarez MD [address] [place] [address] [address] [place] [address] PCP - General 09/18/14 documented as of this encounter Additional Source Comments The information contained in this document represents components of the legal health record. It is not the complete legal health record.[facility]
--- OUTSIDE RECORDS SUMMARY | 2025-03-07 16:08 | XMS_ITS | Clinical Summary ---
Author Organization [facility] ity Address [address] [place] [address] Care Team Providers Care General Farm Manager Name Role Phone Pedrito Suarez MD Primary Care Provider [phone] Medical History Medical History Date Comments Hypertension [...] Health Maintenance Due Date Last Done Comments Colorectal Cancer Screening: Colonoscopy 1976 DTaP,Tdap,and Td Vaccines (1 - Tdap) 08/14/1995 Hepatitis B Vaccines (1 of 3 - 19+ 3-dose series) 08/14/1995 Cholesterol Screening (Lipid Panel) 12/09/2023 HIV Screening 12/09/2023 Hepatitis C Screening 12/09/2023 Social Influencers of Health Screening 12/09/2023 Depression Screening 05/15/2024 COVID-19 Vaccine (1 - 2023-2 5 season) 2025 Influenza Vaccine (#1) 2025 RSV Immunization Adult Patie nts (1 - 1-dose 75+ series) 08/14/2051 HIB [...] age to complete this topic Care Teams General Farm Manager Relationship Specialty Start Date End Date Pedrito Suarez MD [address] [place] [address] Dr Edgar [place] PCP - General 07/17/23
--- OUTSIDE RECORDS SUMMARY | 2025-03-07 16:08 | XMS_ITS | Clinical Summary ---
Author Organization [facility] Address [address] [place] [address] Care Team Providers Care Hand Molder Name Role Phone Pedrito Suarez MD Primary Care Provider [phone] Allergies Active Allergy Reactions Criticality Noted Date [...] age to complete this topic Care Teams Hand Molder Relationship Specialty Start Date End Date Pedrito Suarez MD [address] [place] [address] Dr Dodson [address] [place] [address] PCP - General School Bus Aide 07/17/23
--- OUTSIDE RECORDS SUMMARY | 2025-03-07 16:10 | XMS_ITS | Encounter Summary ---
Author Organization [facility] Address [address] [place] [address] [place] [address] Phone Care Team Providers Care Recruiter Manager Name Role Phone Pedrito Suarez MD Primary Care Provider Encounter Details Date Type Department Care Team (Late st Contact Info) Description 07/31/2020 Procedure Pass [facility] Angio Interventional Radiology [address] [place] [address] Social History Tobacco Use Types Packs/Day Years [...] Time CF Comment:Added as part of the [facility] Supplemental Conversion 01/24/2005 01/24/2005 CoV-Risk Comment:Per note documentation 08/04/2020 08/05/2020 1:51 PM EDT documented as of this encounter Care Teams Recruiter Manager Relationship Specialty Start Date End Date Pedrito Suarez MD [address] [place] [address] [address] [place] [address] PCP - General 09/18/14 documented as of this encounter Additional Source Comments The information contained in this document represents components of the legal health record. It is not the complete legal health record.[facility]
--- OUTSIDE RECORDS SUMMARY | 2025-03-07 16:10 | XMS_ITS | Encounter Summary ---
Author Organization [facility] Address [address] [place] [address] [place] [address] Phone Care Team Providers Care Balcony Worker Name Role Phone Pedrito Suarez MD Primary Care Provider Encounter Details Date Type Department Care Team (Late st Contact Info) Description 07/31/2020 Telephone [facility] Angio Interventional Radiology [address] [place], [place] [id number] Reyes Staton RN [address] [place] [phone] [email or web address] Social History Tobacco Use Types Packs/Day [...] Time CF Comment:Added as part of the [facility] [facility] Supplemental Conversion 01/24/2005 01/24/2005 CoV-Risk Comment:Per note documentation 08/04/2020 08/05/2020 1:51 PM EDT documented as of this encounter Care Teams Balcony Worker Relationship Specialty Start Date End Date Pedrito Suarez MD [address] [place] [address] [address] [place] [address] PCP - General 09/18/14 documented as of this encounter Additional Source Comments The information contained in this document represents components of the legal health record. It is not the complete legal health record.[facility]
--- OUTSIDE RECORDS SUMMARY | 2025-03-07 16:10 | XMS_ITS | Clinical Summary ---
Author Organization [facility] Address [address] [facility] 7 [place] [address] Care Team Providers Care Collar Padder Blindstitch Name Role Phone Unavailable Primary Care Provider [...] COVID-19 Vaccine ( - 2023-2 5 season) 2025 Influenza Vaccine (#1) 2025 Zoster Vaccines (1 [...]
--- OUTSIDE RECORDS SUMMARY | 2025-03-07 16:10 | XMS_ITS | Clinical Summary ---
Author Organization [facility] Address [address] [place] [address] Phone Care Team Providers Care Chief Media Officer Name Role Phone Pedrito Suarez MD Primary [...] 1 tablet by mouth daily. 05/01/2023 Active [id number]-obi-[id number] on fum-folic ac 7.5 mg iron-400 mcg [...] rash. Replaced with cefepime after curbsiding ID etiquette coach re cefepime vs aztreonam as aztreonam with more similar side chains to ceftaz. Rash resolved and tolerated cefepime for remainder of coarse. Completed IV antibiotics prior to discharge. Discussed with patient ordering Caysten for him to be on as outpatient chronically but he declined and felt he wouldn't use it. Immunizations Immunization Administration Dates Next Due Influenza, [...] FOBT 2021 SIGMOIDOSCOPY 2021 VIRTUAL COLONOSCOPY 2021 BLOOD PRESSURE 06/07/2024 12/06/2023 CREATININE LEVEL 09/26/2024 09/27/2023, , 2020, Additional history exists POTASSIUM LEVEL 09/26/2024 09/27/2023, 10/13, 2020, Additional history exists INFLUENZA VACCINE (#1) 2024 3, 02/13/2012, 02/08/2011, Additional history exists COVID-19 VACCINE (2024- season) 2025 05/25/2021, 10/08/2020, 09/10/2020 LIPID PANEL 10/29/2025 10/29/2020 SCREENING FOR DIABETES 09/26/2026 4, 2020, 03/28/2017, Additional history exists SMOKING STATUS [...] TOTAL BILIRUBIN 1.1(H) 0.0 - 1.0 mg/dL [facility] AST RESULT NOT REPORTED, HEMOLYSIS 10 [...] ANION GAP 16 7 - 17 mmol/L [facility] 09/27/2023 4:54 PM EDT 09/27/2023 5:58 PM EDT us Cory Camejo MD LAB BLOOD ORDERABLES Final R esult Performing Organization Address [facility] Co de Phone Number [address] [address] * (ABNORMAL) Lipid panel (10/29/2020 3:57 PM EDT) CHOLESTEROL 188 <200 mg/dL [facility] TRIGLYCERIDES 343(H) 35 - 150 mg/dL [facility] HDL 39(L) 40 - 80 mg/dL [facility] CALCULATED LDL 80 50 - 129 mg/dL [facility] VLDL 69 mg/dL [facility] CARDIAC RISK RATIO 4.8(H) 0.0 - 4.0 [facility] 10/29/2020 3:57 PM EDT 10/29/2020 4:16 PM EDT us Zaida Vivas MD, PhD LAB BLOOD ORDERAB LES Final Result Performing Organization Address [facility]/ZIP Co de Phone Number [address] [address] * (ABNORMAL) Glucose (2020 9:36 AM EDT) GLUCOSE 184(H) 70 - 100 mg/dL [facility] 2020 9:36 AM EDT 2020 11:33 AM EDT Comment:#2HR us Yuly Villalobos PA-C LAB BLOOD ORDERABLES Jordana granger Result [facility] [address] [place] [address] from Last 3 Months or Most Recently Relevant to Health Maintenance Additional Health Concerns Infection Onset Date Last Indicated CF Comment:Added as part of the [facility] Supplemental Conversion 01/24/2005 01/24/2005 Insurance C3 ACO C3 ACO C3 ACO [address] [place] [address] [place] [address] C3 ACO C3 ACO C3 ACO C3 ACO C3 ACO [place] [id number] Advance Directives For more information, please contact: [phone] (9AM - 5PM [facility], Monday-Monday) * Full Code (Latest Code Status [...] 9:42 PM 10/29/2015 4:58 PM Care Teams Chief Media Officer Relationship Specialty Start Date End Date Pedrito Suarez MD [address] [place] [address] [place] [address] PCP - General 09/18/14 Additional Source Comments The information contained in this document represents components of the legal health record. It is not the complete legal health record.[facility]
--- OUTSIDE RECORDS SUMMARY | 2025-03-07 16:10 | XMS_ITS | Encounter Summary ---
Author Organization [facility] Address [address] [place] [address] [place] [address] Phone Care Team Providers Care Crew Attendant Name Role Phone Pedrito Suarez MD Primary Care Provider Encounter Details Date Type Department Care Team (Late st Contact Info) Description 08/05/2020 Procedure Pass [facility] Echocardiography [address] [place] [address] Social History Tobacco Use Types Packs/Day Years [...] CF Comment:Added as part of the [facility] Supplemental Conversion 01/24/2005 01/24/2005 CoV-Risk Comment:Per note documentation 08/04/2020 08/05/2020 1:51 PM EDT documented as of this encounter Care Teams Crew Attendant Relationship Specialty Start Date End Date Pedrito Suarez MD [address] [place] [address] [address] [place] [address] PCP - General 09/18/14 documented as of this encounter Additional Source Comments The information contained in this document represents components of the legal health record. It is not the complete legal health record.[facility]
== END 2025-03-07 14:40 | disposition home or self-care (01) ==
LOC: HO.HKA 14:06
PROVIDERS: PCP Internal Medicine; Referring Provider Internal Medicine; Visit Provider Internal Medicine Hypertension Specialist
DX: N18.9 Chronic kidney disease, unspecified (principal)
CPT/HCPCS: 99204

== ENCOUNTER → 2025-03-07 14:06 | Outpatient (BNVA) | payer MEDICAID, SELFPAY | PROVIDERS: PCP Internal Medicine; Referring Provider Internal Medicine; Visit Provider Internal Medicine Hypertension Specialist | DX: N18.30 Chronic kidney disease, stage 3 unspecified (principal); M10.9 Gout, unspecified; I10 Essential (primary) hypertension; E84.9 Cystic fibrosis, unspecified | CPT/HCPCS: 99202 ==

== ENCOUNTER 2025-03-31 14:34 | Outpatient (REF) | payer MEDICAID, SELFPAY ==
[2025-03-31 15:06] LABS: MANUAL DIFF FLAG NO
[2025-03-31 15:07] LABS: Appearance Urine Clear; Glucose Urine UA Negative (Negative); PH 6.5 (5.0-9.0); Specific Gravity - Urine 1.010 (1.005-1.025); UMIC TRIGGER UA YES
[2025-03-31 15:45] LABS: Hematocrit 46.6 % (42.0-52.0); Hemoglobin 15.7 g/dl (14.0-18.0); Imm Gran Abs Auto 0.05 X10*3/uL (0.00-0.03); Imm Gran Pct Auto 0.5 % (0.0-0.4); Lymphocytes Absolute Auto 1.1 X10*3/uL (1.2-4.9); Mean Corpuscular HGB Conc 33.7 g/dl (31.0-36.0); Mean Corpuscular Hemoglobin 28.8 pg (27.0-33.0); Mean Corpuscular Volume 85.3 fL (80.0-98.0); NRBC Abs Auto 0.000 X10*3/uL (0.0-0.012); NRBC Pct Auto 0.0 /100WBC (0.0-0.2); Platelet Count 268 X10*3/uL (160-400); Red Blood Count 5.46 X10*6/uL (4.60-5.80); White Blood Count 9.9 X10*3/uL (4.8-10.8)
[2025-03-31 16:08] LABS: Total Protein Urine Random 22 mg/dL (<12)
[2025-03-31 16:10] LABS: Anion Gap 12 (12-20); Blood Urea Nitrogen 26 mg/dL (9-16); Calcium 9.8 mg/dL (8.4-10.2); Carbon Dioxide 27 mmol/L (22-29); Chloride 104 mmol/L (96-108); Estimated Glomerular Filt Rate > 60; Magnesium 2.1 mg/dL (1.6-2.6); Potassium 3.1 mmol/L (3.3-5.1); Sodium 140 mmol/L (135-145); Uric Acid 8.6 mg/dL (3.4-7.0)
== END 2025-03-31 14:35 | disposition home or self-care (01) ==
LOC: HO.LAB 14:34
PROVIDERS: Visit Provider Internal Medicine Hypertension Specialist
DX: N18.9 Chronic kidney disease, unspecified (principal)
CPT/HCPCS: 36415; 80048; 81001; 81003; 82570; 83735; 84156; 84550; 85025

== ENCOUNTER 2025-04-01 13:36 | Outpatient (AMB) | payer MEDICAID, SELFPAY ==
--- NOTE | 2025-04-01 13:36 | HO.NEPHOV ---
Vital Signs 04/01/25 13:38 Height 5 ft 6 in Weight 178 lb BMI 28.7 BP 148/100 H Blood Pressure Location Rt brachial Position Sitting Pulse 86 Pulse Source Pulse Oximeter Pulse Oximetry (%) 95 Oxygen Delivery Method Room Air Intake Visit Reasons: 4 wks f/u w/labs Outdoor Adventure Leader Required: No Accompanied by: Self / Same As Patient Allergies guaifenesin (From ROBITUSSIN-DM) Allergy (Unknown, Verified 04/01/25 13:40) HIVES ciprofloxacin (From Cipro) Allergy (Verified 04/01/25 13:40) Hives From KEFLEX Allergy (Unknown, Uncoded 10/26/22 12:27) HIVES From ROBITUSSIN-DM Allergy (Unknown, Uncoded 10/26/22 12:27) HIVES Medication List - Last Reconciled 04/01/25 by Henrik Ochoa MD albuterol sulfate 90 mcg/actuation (Ventolin HFA) 2 puffs inhalation Q6H PRN amlodipine 5 mg PO DAILY budesonide-formoterol 160-4.5 mcg/actuation (Symbicort) 2 puffs inhalation BID bupropion HCl XL 150 mg PO DAILY PRN cholecalciferol (vitamin D3) 25 mcg PO DAILY clonidine HCl 0.1 mg PO DAILY PRN losartan 50 mg PO BID magnesium 125 mg PO BEDTIME PRN metoprolol succinate ER 25 mg PO DAILY mirtazapine 7.5 mg PO BEDTIME PRN multivitamin 1 tab PO DAILY HPI Comments Details: - The patient is a 49-year-old male presenting with decreased kidney function. - Chronic Kidney Disease: Referred for low kidney function, creatinine at 1.6 mg/dL, indicating 46% function. - Cystic Fibrosis: Managed with inhalers and antibiotics, last infection in 2020. - Gout: Last flare in December, treated with indomethacin. - Hypertension: Managed with losartan, hydralazine, and metoprolol, recent BP 150/100 mmHg. 04/01/25 The patient is a 49-year-old male presenting for follow-up of abnormal kidney function and hypertension management. In December, his creatinine level was elevated at 1.6, and he had recently taken indomethacin for gout. After discontinuing the NSAID, his kidney function improved, with the most recent creatinine level being 1.17, which is the best it has been in several months. The patient's blood pressure remains elevated, with past readings of 150/100 mmHg on March 07 and 140/86 mmHg on January 03. He is prescribed amlodipine 5 mg and losartan 50 mg twice daily but reported forgetting to take his medication this morning. His medical history is also significant for gout, with his uric acid level noted to be persistently high at 8.6, and mild hyperlipidemia. About 10 days ago, he experienced diarrhea for two days. He denies taking any diuretics and denies symptoms of lightheadedness. [facility] Medical History (Updated 04/01/25 @ 13:58 by Henrik Ochoa MD) Pancreatitis Gout Cystic fibrosis High blood pressure Surgical History History of kidney surgery Social History Household Members: Family Housing: House Do you presently have visiting nurse or other home services: No Patient Tobacco Use Status: Never used Tobacco service: No Current occupational status: employed Current occupation: customer service at airport/ rt hand Physical Exam Vital Signs: Last Vital Signs Pulse 86 04/01/25 13:38 BP 148/100 H 04/01/25 13:38 Pulse Ox 95 04/01/25 13:38 Oxygen Delivery Method Room Air 04/01/25 13:38 BMI result Body Mass Index 28.7 Results Reviewed Nephrology Results: Hgb, (14.0-18.0) 15.7 g/dl 03/31/25 WBC, (4.8-10.8) 9.9 X10*3/uL 03/31/25 Plt Count, (160-400) 268 X10*3/uL Δ 03/31/25 Sodium, (135-145) 140 mmol/L 03/31/25 Potassium, (3.3-5.1) 3.1 mmol/L L 03/31/25 Chloride, (96-108) 104 mmol/L 03/31/25 Carbon Dioxide, (22-29) 27 mmol/L 03/31/25 BUN, (9-16) 26 mg/dL H 03/31/25 Creatinine, (0.5-1.4) 1.17 mg/dL 03/31/25 Calcium, (8.4-10.2) 9.8 mg/dL 03/31/25 Urine Protein, (Neg-Trace) 30 (1+) mg/dL H 03/31/25 Urine Creatinine 58.06 mg/dL 03/31/25 Assessment & Plan Assessment & Plan (1) CKD (chronic kidney disease): Code(s): N18.9 - Chronic kidney disease, unspecified Category: Medical Plan 1. Chronic Kidney Disease Probably has stage III CKD. s/p ALBER due to hypoperfusion from the use of NSAIDs. Creatinine improved after stopping Indocin - Encourage hydration to support kidney function. 2. Cystic Fibrosis - Continue management with show jumping instructor, using inhalers and antibiotics as needed. 3. Gout - Monitor uric acid levels, consider allopurinol if high. 4. Hypertension - Keep amlodipine 5 mg daily for blood pressure control. Needs to stay compliant Obtain 24 hr ABPM 5. Hypokalemia Due to GI loss? Will replace KCL Orders: Orders AMB 24 HR B/P Monitor PLACEMENT Today I10 - Essential (primary) hypertension Referrals Rheumatology Referral E84.9 - Cystic fibrosis, unspecified, M19.90 - Unspecified osteoarthritis, unspecified site Medications: New potassium chloride ER 10 mEq PO DAILY 3 caps 0RF Coding Level of Care Code Est Pt Level 4 (19763) Diagnoses CKD (chronic kidney disease) N18.9
[2025-04-01 13:38] VITALS: BP 148/100; PULSE 86; O2SAT 95; BMI 28.7
--- OUTSIDE RECORDS SUMMARY | 2025-04-02 07:06 | XMS_ITS | Encounter Summary ---
Author Organization [facility] Address [address] [place] [address] [place] [address] Phone Care Team Providers Care Tube Draw Helper Name Role Phone Pedrito Suarez MD Primary Care Provider Encounter Details Date Type Department Care Team (Late st Contact Info) Description 07/31/2020 Procedure Pass [facility] Angio Interventional Radiology [address] [place] [address] Social History Tobacco Use Types Packs/Day Years [...] Time CF Comment:Added as part of the [facility] Supplemental Conversion 01/24/2005 01/24/2005 CoV-Risk Comment:Per note documentation 08/04/2020 08/05/2020 1:51 PM EDT documented as of this encounter Care Teams Tube Draw Helper Relationship Specialty Start Date End Date Pedrito Suarez MD [address] [place] [address] [address] [place] [address] PCP - General 09/18/14 documented as of this encounter Additional Source Comments The information contained in this document represents components of the legal health record. It is not the complete legal health record.[facility]
--- OUTSIDE RECORDS SUMMARY | 2025-04-02 07:06 | XMS_ITS | Encounter Summary ---
Author Organization [facility] Address [address] [place] [address] [place] [address] Phone Care Team Providers Care Erco Machine Operator Name Role Phone Pedrito Suarez MD Primary Care Provider Encounter Details Date Type Department Care Team (Late st Contact Info) Description 07/31/2020 Telephone [facility] Angio Interventional Radiology [address] [place], [place] [phone] Reyes Staton RN [address] [place] [phone] [email or web address] Social History Tobacco Use Types Packs/Day [...] Time CF Comment:Added as part of the [facility] Supplemental Conversion 01/24/2005 01/24/2005 CoV-Risk Comment:Per note documentation 08/04/2020 08/05/2020 1:51 PM EDT documented as of this encounter Care Teams Erco Machine Operator Relationship Specialty Start Date End Date Pedrito Suarez MD [address] [place] [address] [address] [place] [address] PCP - General 09/18/14 documented as of this encounter Additional Source Comments The information contained in this document represents components of the legal health record. It is not the complete legal health record.[facility]
--- OUTSIDE RECORDS SUMMARY | 2025-04-02 07:06 | XMS_ITS | Clinical Summary ---
Author Organization [facility] Address [address] [place] [address] Phone Care Team Providers Care Forepart Laster Name Role Phone Pedrito Suarez MD Primary [...] 1 tablet by mouth daily. 05/01/2023 Active jizcrerq-ebs-uq on fum-folic ac 7.5 mg iron-400 mcg [...] rash. Replaced with cefepime after curbsiding ID cardiology consultant re cefepime vs aztreonam as aztreonam with [...] patient's age to complete this topic IPV VACCINES Aged Out No longer eligi ble [...] Date/Time Associated Diagnosis Comments COMPREHENSIVE METABOLIC PANEL (CMP) Routine 09/27/2023 4:54 PM EDT Acute renal failure, unspecified acute renal failure type LIPID PANEL Routine 10/29/2020 3:57 PM EDT CF (cystic fibrosis) GLUCOSE Routine 2020 9:36 AM EDT from Last 3 Months or Most Recently Relevant to Health Maintenance Results * (ABNORMAL) Comprehensive metabolic panel (09/27/2023 4:54 PM EDT) SODIUM 140 136 - 145 mmol/L [facility] POTASSIUM RESULT NOT REPORTED, HEMOLYSIS 3.4 - 5.1 mmol/L [facility] CHLORIDE 99 98 - 107 mmol/L [facility] CO2 25 22 - 31 mmol/L [facility] BUN 22 6 - 23 mg/dL [facility] CREATININE 1.34(H) 0.50 - 1.20 mg/dL [facility] GLUCOSE 112(H) 70 - 100 mg/dL [facility] ALBUMIN 4.0 3.5 - 5.2 g/dL [facility] TOTAL PROTEIN 7.1 6.4 - 8.3 g/dL [facility] CALCIUM 9.6 8.8 - 10.7 mg/dL [facility] ALKALINE PHOSPHATASE 90 35 - 130 U/L [facility] TOTAL BILIRUBIN 1.1(H) 0.0 - 1.0 mg/dL [facility] AST RESULT NOT REPORTED, HEMOLYSIS 10 - 50 U/L [facility] Comment: ALT RESULT NOT REPORTED, HEMOLYSIS 10 - 50 U/L [facility] Comment: GLOBULIN 3.1 2.2 - 4.2 g/dL [facility] EGFR 66 >59 mL/min/1 .73m2 [facility] Comment:Estimated glomerular filtration rate calculated using the CKD-EPI refit equation. ANION GAP 16 7 - 17 mmol/L [facility] 09/27/2023 4:54 PM EDT 09/27/2023 5:58 PM EDT us Cory Camejo MD LAB BLOOD BKR ORDERABLES Fin al Result Performing Organization Address City/State/[facility] Co de Phone Number [facility] [address] [place] [address] * (ABNORMAL) Lipid panel (10/29/2020 3:57 PM EDT) CHOLESTEROL 188 <200 mg/dL [facility] TRIGLYCERIDES 343(H) 35 - 150 mg/dL [facility] HDL 39(L) 40 - 80 mg/dL [facility] CALCULATED LDL 80 50 - 129 mg/dL [facility] VLDL 69 mg/dL [facility] CARDIAC RISK RATIO 4.8(H) 0.0 - 4.0 [facility] 10/29/2020 3:57 PM EDT 10/29/2020 4:16 PM EDT Zaida Vivas MD, PhD LAB BLOOD BKR ORD ERABLES Final Result [facility] [address] [place] [address] * (ABNORMAL) Glucose (2020 9:36 AM EDT) GLUCOSE 184(H) 70 - 100 mg/dL [facility] 2020 9:36 AM EDT 2020 11:33 AM EDT Comment:#2HR us Yuly Villalobos PA-C LAB BLOOD BKR ORDERABLES Final Result Performing Organization Address [facility] Co de Phone Number [facility] [address] [place] [address] from Last 3 Months or Most Recently Relevant to Health Maintenance Additional Health Concerns Infection Onset Date Last Indicated CF Comment:Added as part of the [facility] Supplemental Conversion 01/24/2005 01/24/[address] [place] [address] [place] [address] C3 ACO C3 ACO C3 ACO C3 ACO C3 ACO C3 ACO C3 ACO C3 ACO Advance Directives For more information, please contact: [phone] (9AM - 5PM [facility], Monday-Monday) * Full Code (Latest Code Status on File) Date Activated Date Inactivated Comments 08/04/2020 4:59 PM Question Answer Comments Code Status Confirmed With: Patient Code Status Communicated To: Other (specify gage w) Code Discussion Comments: JULIA * Full Code (Confirmed) Date Activated Date Inactivated Comments 03/22/2017 6:41 AM 03/31/2017 9:19 PM Question Answer Comments Code Discussion Comments: Isak Sifuentes * Full Code (Presumed) Date Activated Date Inactivated Comments 03/21/2017 6:32 PM 03/22/2017 6:41 AM * Full Code (Presumed) Date Activated Date Inactivated Comments 10/18/2015 9:42 PM 10/29/2015 4:58 PM Care Teams Forepart Laster Relationship Specialty Start Date End Date Pedrito Suarez MD [address] [place] [address] [place] [address] PCP - General 09/18/14 Additional Source Comments The information contained in this document represents components of the legal health record. It is not the complete legal health record.[facility]
--- OUTSIDE RECORDS SUMMARY | 2025-04-02 07:06 | XMS_ITS | Clinical Summary ---
Author Organization [facility] ity Address [address] [place] [address] Care Team Providers Care Business Technology Professor Name Role Phone Pedrito Suarez MD Primary Care Provider [phone] Medical History Medical History Date Comments Hypertension [...] Depression Screening 05/15/2024 COVID-19 Vaccine (1 - 2024-2 6 season) 2025 Influenza Vaccine (#1) 2025 RSV [...] age to complete this topic Care Teams Business Technology Professor Relationship Specialty Start Date End Date Pedrito Suarez MD [address] [place] [address] Dr Edgar [place] PCP - General 07/17/23
--- OUTSIDE RECORDS SUMMARY | 2025-04-02 07:06 | XMS_ITS | Encounter Summary ---
Author Organization [facility] Address [address] [place] [address] [place] [address] Phone Care Team Providers Care Radiagraph Operator Name Role Phone Pedrito Suarez MD Primary Care Provider Encounter Details Date Type Department Care Team (Late st Contact Info) Description 08/05/2020 Procedure Pass [facility] Echocardiography [address] [place] [address] Social History Tobacco Use Types Packs/Day Years [...] Time CF Comment:Added as part of the [facility] Supplemental Conversion 01/24/2005 01/24/2005 CoV-Risk Comment:Per note documentation 08/04/2020 08/05/2020 1:51 PM EDT documented as of this encounter Care Teams Radiagraph Operator Relationship Specialty Start Date End Date Pedrito Suarez MD [address] [place] [address] [address] [place] [address] PCP - General 09/18/14 documented as of this encounter Additional Source Comments The information contained in this document represents components of the legal health record. It is not the complete legal health record.[facility]
--- OUTSIDE RECORDS SUMMARY | 2025-04-02 07:06 | XMS_ITS | Clinical Summary ---
Author Organization [email or web address] Address [address] [facility] 7 [place] [address] Care Team Providers Care Electric Motors Salesperson Name Role Phone Unavailable Primary Care Provider [...] 3-dose series) 08/14/1995 COVID-19 Vaccine ( - 2024-2 6 season) 2025 Influenza Vaccine (#1) 2025 Zoster [...]
--- OUTSIDE RECORDS SUMMARY | 2025-04-02 07:06 | XMS_ITS | Encounter Summary ---
Author Organization [facility] Address [address] [place] [address] [place] [address] Phone Care Team Providers Care Cnc Service Technician Name Role Phone Pedrito Suarez MD Primary Care Provider Encounter Details Date Type Department Care Team (Late st Contact Info) Description 03/17/2017 Telephone [facility] Angio Interventional Radiology [address] [place] [address] Olga Em, TANIA Social History Tobacco Use [...] Time CF Comment:Added as part of the [facility] Supplemental Conversion 01/24/2005 01/24/2005 CoV-Risk Comment:Per note documentation 08/04/2020 08/05/2020 1:51 PM EDT documented as of this encounter Care Teams Cnc Service Technician Relationship Specialty Start Date End Date Pedrito Suarez MD [address] [place] [address] [address] [place] [address] PCP - General 5/7/15 documented as of this encounter Additional Source Comments The information contained in this document represents components of the legal health record. It is not the complete legal health record.[facility]
--- OUTSIDE RECORDS SUMMARY | 2025-04-02 07:07 | XMS_ITS | Encounter Summary ---
Author Organization [facility] Address [address] [place] [address] Phone Care Team Providers Care Dry Cleaning Machine Operator Name Role Phone Pedrito Suarez MD Primary Care Provider Pedrito Suarez MD Unavailable Asya Calixto MD Unavailable [phone] Pedrito Suarez MD Unavailable [phone] Celeste Chawla [facility] Unavailable [facility] Unavailable [phone] Alcira Johnston Unavailable [phone] Zaida Vivas MD Unavailable [phone] Encounter Details Date Type Department Care Team (Late st Contact Info) Description 03/05/2024 Orders Only [facility] [address] [place] [phone] Lilli Suárez, TANIA [address] [place] [address] Cystic fibrosis (HCC) Social History Tobacco Use [...] Care Team (Late st Contact Info) Description 04/03/2025 4:00 PM EST Telemedicine [facility] [address] [place] [phone] Tamanna Wade, PhD [address] [place] [address] documented as of this encounter Visit Diagnoses Diagnosis Cystic fibrosis 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 documented in this encounter Additional Health Concerns Infection Onset Date Last Indicated Resolved Time Cystic fibrosis 12/01/2023 12/01/2023 MDR Pseudomonas aeruginosa 12/06/2023 12/06/2023 documented as of this encounter Care Teams Dry Cleaning Machine Operator Relationship Specialty Start Date End Date Pedrito Suarez MD [address] [address] PCP - General 09/08/23 01/08/25 Pedrito Suarez MD [address] [address] PCP - Insurance PCP 09/29/17 01/08/25 Pedrito Suarez MD [address] [address] PCP - Insurance Identified PCP 11/13/23 08/19/24 [facility] [address] [place] [phone] PCP - Insurance Identified PCP 08/20/24 11/13/24 Alcira Johnston [address] [place] [phone] PCP - Insurance Identified PCP 11/14/24 Asya Calixto MD [address] [place] [phone] HC Grade School Teacher 10/14/23 Celeste Chawla LICSW [address] [place] [address] Academic Affairs Manager Social Work 04/15/24 Zaida Vivas MD [address] [place], [place] [id number] Associate Attending Pulmonary Diseases 01/28/25 documented as of this encounter
--- OUTSIDE RECORDS SUMMARY | 2025-04-02 07:07 | XMS_ITS | Clinical Summary ---
Author Organization [facility] Address [address] [place] [address] Phone Care Team Providers Care Rug Cleaner Name Role Phone Asya Calixto MD Unavailable [phone] Celeste ChawlaSW Unavailable [phone] Alcira Johnston Unavailable [phone] Zaida Vivas MD Unavailable [phone] Allergies Active Allergy Reactions Criticality Noted Date [...] 30 tab, Refills: 0, Entered: 01/12/16 17:29:05 EDT, [facility] [id number] 01/12/20 16 Active metoprolol succinate XL 25 mg extended release tablet Take 25 mg by mouth 1 time each day. Patient unsure of dose but thinks he takes 25mg daily. Active multivit-min/iron fum/folic ac (multivitamin with minerals) 7.5 mg iron-400 mcg tablet Take 1 tablet by mouth 1 time each day. Takes Citra Style OTC multivitamin 1 tab daily Active NIFEdipine XL 30 mg extended release tabletIndications: Hypertension, unspecified type Take 30 mg = 1 tablet by mouth 1 time each day. Do not crush, chew, or split. 30 tablet 11 04/28/20 24 025 Active cholecalciferol 25 MCG (1000 UT) capsuleIndications :Cystic fibrosis Take 25 mcg = 1 capsule by mouth 1 time each day. Dose: 1,000 unit, Dose Amount: 1 cap, PO, daily 90 capsule 3 05/13/20 24 Active hydrALAZINE 50 mg tabletIndications: Cystic fibrosis,Primary hypertension Take 50 mg = 1 tablet by mouth 2 times a day. 60 tablet 3 09/04/19 25 Active mirtazapine 15 mg disintegrating tablet Take 7.5 mg by mouth at bedtime. Active cloNIDine 0.1 mg tablet Take 50 mcg by mouth as needed at bedtime (insomnia). Active albuterol HFA 90 mcg/act inhalerIndications :Cystic fibrosis Inhale 2 puffs every 6 hours if needed for wheezing or shortness of breath. 18 g 6 12/04/19 25 Active budesonide-formote roL 160-4.5 mcg/actuation inhalerIndications :Cystic fibrosis Inhale 2 puffs 2 times a day. 1 each 6 12/25/19 25 Active buPROPion XL 150 mg extended release tablet Take 150 mg by mouth every morning. Do not crush, chew, or split. Active Active Problems Problem Noted Date Diagnosed Date Cystic fibrosis with pulmonary manifestations (C MS/HCC) 04/19/2024 Encounters Date Type Department Care Team Description 03/13/2025 3:00 PM EDT Telemedicine [facility] [address] [place] [address] Tamanna Wade, PhD BRITTA (generalized anxiety disorder) (Primary Dx); PTSD (post-traumatic stress disorder); Current moderate episode of major depressive disorder without prior episode (HCC) 03/04/2025 2:00 PM EDT Telemedicine [facility] [address] [place] [phone] Tamanna Wade, PhD BRITTA (generalized anxiety disorder) (Primary Dx); PTSD (post-traumatic stress disorder); Current moderate episode of major depressive disorder without prior episode (HCC) 02/21/2025 2:00 PM EDT Telemedicine [address] [phone] Tamanna Wade, PhD BRITTA (generalized anxiety disorder) (Primary Dx); PTSD (post-traumatic stress disorder); Current moderate episode of major depressive disorder without prior episode (HCC) 02/05/2025 3:00 PM EDT Telemedicine [address] [phone] Tamanna Wade, PhD BRITTA (generalized anxiety disorder) (Primary Dx); PTSD (post-traumatic stress disorder); Current moderate episode of major depressive disorder without prior episode (HCC) 01/21/2025 11:00 AM EDT Telemedicine [address] [phone] Tamanna Wade, PhD BRITTA (generalized anxiety disorder) (Primary Dx); PTSD (post-traumatic stress disorder); Current moderate episode of major depressive disorder without prior episode (HCC) 01/16/2025 3:30 PM EDT Office Visit [facility] [address] [place] [phone] Lyssa More, PT Cystic fibrosis with pulmonary manifestations (CMS/HCC) (HCC) (Primary Dx) 01/16/2025 3:30 PM EDT Clinical Support [facility] [address] [place] [phone] Yarely Ulrich, MARSHALL Cystic fibrosis with pulmonary manifestations (CMS/HCC) (HCC) [E84.0] (Primary Dx); Dietary counseling and surveillance [Z71.3] 01/16/2025 3:30 PM EDT Office Visit [facility] [address] [place] [address] Zaida Vivas MD CF (cystic fibrosis) ([facility]/HCC) (HCC) (Primary Dx); Primary hypertension; BRITTA (generalized anxiety disorder); Stage 3 chronic kidney disease, unspecified whether stage 3a or 3b CKD ([facility]) 01/16/2025 3:14 PM EDT - 01/16/2025 11:59 PM EDT Hospital Encounter [facility] [address] [place] [address] Discharge Disposition: Home 01/16/2025 Social Work [facility] [address] [place] [phone] Celeste Chawla LICSW 01/16/2025 Travel 01/10/2025 Social Work [facility] [address] [place] [phone] Celeste Chawla LICSW 01/09/2025 Social Work [facility] [address] [place] [phone] Celeste Chawla LICSW Cystic fibrosis ([facility]) (Primary Dx) 01/07/2025 11:00 AM EDT Telemedicine [facility] [address] [place] [phone] Tamanna Wade, PhD BRITTA (generalized anxiety disorder) (Primary Dx); PTSD (post-traumatic stress disorder); Current moderate episode of major depressive disorder without prior episode (HCC) from Last 3 Months Immunizations Immunization Administration [...] Sign Reading Time Taken Comments Blood Pressure 177/116 01/16/2025 3:00 PM EDT provider notified Pulse 82 01/16/2025 3:00 PM EDT Temperature 36.6 C (97.9 F) 01/16/2025 3:00 PM EDT Respiratory Rate 20 01/16/2025 3:00 PM EDT Oxygen Saturation 97% 01/16/2025 3:0 0 PM EDT Inhaled Oxygen Concentration - - Weight 81.1 kg (178 lb 12.7 oz) 01/16/2025 3:00 PM EDT Height 165 cm (5' 4.96 ) 01/16/2025 3:0 0 PM EDT Body Mass Index 29.79 01/16/2025 3:00 PM EDT Plan of Treatment Upcoming Encounters Date Type Department Care Team (Late st Contact Info) Description 04/03/2025 4:00 PM EST Telemedicine [facility] [address] [place] [address] Tamanna Wade, PhD [address] [place] [address] Health Maintenance Due Date Last Done Comments Chlamydia and Gonorrhea Screening 1976 HIV Screening 1976 MMR Vaccines (1 of 1 - Standard series) 1977 DTaP/Tdap/Td Vaccines (1 - Tdap) 08/14/1983 Varicella Vaccines (1 of 2 - 13+ 2-dose series) 1989 Hepatitis C Screening 1994 Hepatitis B Vaccines (1 of 3 - 19+ 3-dose series) 08/14/1995 Influenza Vaccine (#1) 2025 3, 02/13/2012, 02/13/2012, Additional history exists HIB Vaccines Aged Out No longer eligi ble based on patient's age to complete this topic HPV Vaccines (No Doses Required) Completed Hepatitis A Vaccines Aged Out No long [...] on patient's age to complete this topic Procedures Procedure Name Priority Date/Time Associated Diagnosis Comments CYSTIC FIBROSIS RESPIRATORY CULTURE Routine 01/16/2025 4:18 PM EDT CF (cystic fibrosis) ([facility]) ([facility]) HC RT NONINVASV OXYGEN SATUR;SINGLE Routine 01/16/2025 3:37 PM EDT CF (cystic fibrosis) ([facility]) ([facility]) from Last 3 Months Results * (ABNORMAL) Cystic Fibrosis Respiratory Culture (01/16/2025 4:18 PM EDT) Cystic Fibrosis Respiratory Culture Normal upper respiratory bekah present 01/22/2025 1:06 PM EDT [facility] Cystic Fibrosis Respiratory Culture Few Staphylococcus aureus(A) JERMAN 01/22/2025 1:06 PM EDT [facility] Cystic Fibrosis Respiratory Culture Few Staphylococcus aureus(A) JERMAN 01/22/2025 1:06 PM EDT [facility] Cystic Fibrosis Respiratory Culture Moderate Pseudomonas aeruginosa(A) 01/22/2025 1:06 PM EDT [facility] Cystic Fibrosis Respiratory Culture Rare Pseudomonas aeruginosa (mucoid)(A) 01/22/2025 1:06 PM EDT [facility] Cystic Fibrosis Respiratory Culture Few Pseudomonas aeruginosa (mucoid)(A) 01/22/2025 1:06 PM EDT [facility] Swab Structure of throat / Unknown Non-blood Collection / Unknown 01/16/2025 4:18 PM EDT 01/16/2025 5:20 PM EDT Narrative Organism Antibiotic Method Susceptibility Staphylococcus aureus Clindamycin JERMAN <=0.5: Susceptible Staphylococcus aureus Erythromycin JERMAN <=0.25: Susceptible Staphylococcus aureus Minocycline JERMAN <=1: Susceptible Staphylococcus aureus Oxacillin JERMAN <=0.25: Susceptible Staphylococcus aureus Tetracycline JERMAN <=0.5: Susceptible Staphylococcus aureus Tigecycline JERMAN <=0.12: Susceptible Staphylococcus aureus Trimethoprim + Sulfamethoxazole JERMAN <=0.5: Susceptible Staphylococcus aureus Vancomycin JERMAN 1.0: Susceptible Staphylococcus aureus Ampicillin/Sulbact am - Deduced JERMAN Susceptible Staphylococcus aureus Cefazolin - Deduced JERMAN Susceptible Staphylococcus aureus Cefoxitin - Deduced JERMAN Susceptible Staphylococcus aureus Clindamycin JERMAN <=0.5: Susceptible Staphylococcus aureus Erythromycin JERMAN <=0.25: Susceptible Staphylococcus aureus Minocycline JERMAN <=1: Susceptible Staphylococcus aureus Oxacillin JERMAN <=0.25: Susceptible Staphylococcus aureus Tetracycline JERMAN <=0.5: Susceptible Staphylococcus aureus Tigecycline JERMAN <=0.12: Susceptible Staphylococcus aureus Trimethoprim + Sulfamethoxazole JERMAN <=0.5: Susceptible Staphylococcus aureus Vancomycin JERMAN 1.0: Susceptible Staphylococcus aureus Ampicillin/Sulbact am - Deduced JERMAN Susceptible Staphylococcus aureus Cefazolin - Deduced JERMAN Susceptible Staphylococcus aureus Cefoxitin - Deduced JERMAN Susceptible Pseudomonas aeruginosa Aztreonam KB Susceptible Pseudomonas aeruginosa Cefepime KB Susceptible Pseudomonas aeruginosa Ceftazidime KB Susceptible Pseudomonas aeruginosa Ciprofloxacin KB Resistant Pseudomonas aeruginosa Meropenem KB Susceptible Pseudomonas aeruginosa Piperacillin + Tazobactam KB Susceptible Pseudomonas aeruginosa Tobramycin KB Susceptible Pseudomonas aeruginosa (mucoid) Aztreonam KB Susceptible Pseudomonas aeruginosa (mucoid) Cefepime KB Susceptible Pseudomonas aeruginosa (mucoid) Ceftazidime KB Susceptible Pseudomonas aeruginosa (mucoid) Ciprofloxacin KB Resistant Pseudomonas aeruginosa (mucoid) Meropenem KB Susceptible Pseudomonas aeruginosa (mucoid) Piperacillin + Tazobactam KB Susceptible Pseudomonas aeruginosa (mucoid) Tobramycin KB Susceptible Pseudomonas aeruginosa (mucoid) Aztreonam KB Susceptible Pseudomonas aeruginosa (mucoid) Cefepime KB Susceptible Pseudomonas aeruginosa (mucoid) Ceftazidime KB Susceptible Pseudomonas aeruginosa (mucoid) Ciprofloxacin KB Susceptible Pseudomonas aeruginosa (mucoid) Meropenem KB Susceptible Pseudomonas aeruginosa (mucoid) Piperacillin + Tazobactam KB Susceptible Pseudomonas aeruginosa (mucoid) Tobramycin KB Susceptible us Zaida Vivas MD LAB MICROBIOLOGY - GENERAL OR DERABLES Final Result [facility] [address] [place] [address], * Pulmonary Function Test (PFT) (01/16/2025 3:37 PM EDT) Interpretation POST spirometry done with fair technique and reproducibility with scooped curve configuration. Moderate airway obstruction. Normal oxygen saturation in room air. Spirometry is decreased compared to prior testing on 09/03/2024. [facility] PATIENT Age 49 years [facility] Height 165 cm [facility] PATIENT Weight 81.1 kg [facility] Technical Notes Patient arrived to the lab post Albuterol (12:30). Testing performed at 3:30. [facility] FVC Actual PostBD 2.59 L [facility] FVC PostBD of Predicted 68 % [facility] FVC PostZScore -2.25 [facility] FEV1 Actual PostBD 1.61 L [facility] FEV1 PostBD of Predicted 51 % [facility] FEV1 PostZScore -3.16 [facility] FEV1/FVC Actual PostBD 62 % [facility] FEV1/FVC PostBD of Predicted 77 % [facility] [id number] PostZScore -2.6 [facility] [id number] Actual PostBD 0.74 L/s [facility] [id number] PostBD of Predicted 23 % [facility] FEF50 Actual PostBD 0.68 L/s [facility] FEF50 PostBD of Predicted 17 % [facility] FEF75 Actual PostBD 0.38 L/s [facility] FEF75 PostBD of Predicted 34 % [facility] PEFR Actual PostBD 5.38 L/s [facility] PEFR PostBD of Predicted 61 % [facility] OXIMETRY SaO2&RA1 97 % FO [facility] 01/16/2025 3:24 PM EDT us Zaida Vivas MD PFT ORDERABLES Final Result [facility] [address] from Last 3 Months Additional Health Concerns Infection Onset Date Last Indicated Cystic fibrosis 12/01/2023 12/01/2023 MDR Pseudomonas aeruginosa 12/06/202312/05 [place] Care Teams Rug Cleaner Relationship Specialty Start Date End Date Alcira Johnston [address] [place] [id number] PCP - Insurance Identified PCP 11/14/24 Asya Calixto MD [address] [place] [phone] HC Sports Marketer 10/14/23 Celeste Chawla LICSW [address] [place] [phone] Screening Representative Social Work 04/15/24 Zaida Vivas MD [address] [place] [phone] (work) Associate Attending Pulmonary Diseases 01/28/25
--- OUTSIDE RECORDS SUMMARY | 2025-04-02 07:07 | XMS_ITS | Encounter Summary ---
Author Organization [facility] Address [address] [place] [address] [place] [address] Phone Care Team Providers Care Digital Media Analyst Name Role Phone Pedrito Suarez MD Primary Care Provider Encounter Details Date Type Department Care Team (Late st Contact Info) Description 03/23/[address] [facility] [address] [place] [address] Social History Tobacco Use Types Packs/Day Years [...] Time CF Comment:Added as part of the [facility] Supplemental Conversion 01/24/2005 01/24/2005 CoV-Risk Comment:Per note documentation 08/04/2020 08/05/2020 1:51 PM EDT documented as of this encounter Care Teams Digital Media Analyst Relationship Specialty Start Date End Date Pedrito Suarez MD [address] [place] [address] [address] [place] [address] PCP - General 09/18/14 documented as of this encounter Additional Source Comments The information contained in this document represents components of the legal health record. It is not the complete legal health record.[facility]
--- OUTSIDE RECORDS SUMMARY | 2025-04-02 07:08 | XMS_ITS | Encounter Summary ---
Author Organization [facility] Address [address] [place] [address] Phone Care Team Providers Care Mechanical Assembly Technician Name Role Phone Pedrito Suarez MD Primary Care Provider Pedrito Suarez MD Unavailable Asya Calixto MD Unavailable [phone] Pedrito Suarez MD Unavailable Celeste Chawla [employer] [employer] Unavailable [phone] [facility] Unavailable Alcira Johnston Unavailable [phone] Zaida Vivas MD Unavailable [phone] Reason for Visit * Reason Comments Social work f/u; financial insecurity Encounter Details Date Type Department Care Team (Late st Contact Info) Description 11/02/2023 Social Work [address] [phone] Celeste Chawla [employer] OWNER [address] [place] [address] Social History Tobacco Use Types Packs/Day Years Used Date Smoking Tobacco: Never Assessed Sex and Gender Information Value Date Recorded Sex Assigned at Male 07/04/2024 10:02 AM EST Legal Sex Male 9:59 AM EDT Gender Identity Male 07/04/2024 10:02 AM EST Sexual Orientation Straight 07/04/2024 10 :02 AM EST documented as of this encounter Progress Notes * Celeste Chawla, [facility] [employer] [facility] [employer]NER - 11/02/2023 3:26 PM EDT Confidential Social Work Brief Screen (PAS) Psychosocial Acuity Scale Psychosocial Issue (Insurance/Finances): Financial insecurity Level: High Social Work Psychosocial Assessment Confidential Custody Status: Preferred Languages: Patient Preferred Language: Malawian Referral Data Visit Type: Not in person [...] Work Note Presenting concerns: financial insecurity CF Economic Historian: Zaida Vivas MD, PhD Visit Type: Virtual - Phone Total Time: 30 minutes Safety concerns today?: No Wilman (he/him/his) is a 48 y.o. patient diagnosed with cystic fibrosis who is followed by Dr. Vivas in the [facility]. Patient is known to [...] reapply again. He continues to work with [employer] on this. MENTAL HEALTH Patient shared that [...] their dog, which has been understandably worrisome. SW coordinated with psychologist Tamanna Wade and field rep to confirm patient would be able to have an appointment scheduled for a psychotherapy visit soon. FOLLOW-UP SW will remain available and continue to follow. Patient is aware of SW ongoing availability and contact information. Per Cystic Fibrosis Foundation guidelines, all patients diagnosed with cystic fibrosis are requiredto have an assigned social contact worker and be encouraged to meet annually with a social contact worker for social work needs assessment and mental health screenings. [facility] Pager: [phone] documented in this encounter Plan of Treatment Upcoming Encounters Date Type Department Care Team (Late st Contact Info) Description 04/03/2025 4:00 PM EST Telemedicine [facility] [address] [place] [phone] Tamanna Wade, PhD [address] [place] [address] documented as of this encounter Visit Diagnoses Not on filedocumented in this encounter Additional Health Concerns Infection Onset Date Last Indicated Resolved Time Cystic fibrosis 12/01/2023 12/01/2023 MDR Pseudomonas aeruginosa 12/06/2023 12/06/2023 documented as of this encounter Care Teams Mechanical Assembly Technician Relationship Specialty Start Date End Date Pedrito Suarez MD [address] [address] PCP - General 09/08/23 01/08/25 Pedrito Suarez MD [address] [address] PCP - Insurance PCP 09/29/17 01/08/25 Pedrito Suarez MD [address] [phone] PCP - Insurance Identified PCP 11/13/23 08/19/24 [facility] [address] [place] [address] PCP - Insurance Identified PCP 08/20/24 11/13/24 Alcira Johnston [address] [place] [phone] PCP - Insurance Identified PCP 11/14/24 Asya Calixto MD [address] [place] [phone] HC Florist Manager 10/14/23 Celeste Chawla LICSW [address] [place] [phone] Inspector Process Social Work 04/15/24 Zaida Vivas MD [address] [place] [phone] Associate Attending Pulmonary Diseases 01/28/25 documented as of this encounter
--- OUTSIDE RECORDS SUMMARY | 2025-04-02 07:08 | XMS_ITS | Clinical Summary ---
Author Organization [facility] Address [address] [place] [address] Care Team Providers Care Director Funeral Name Role Phone Pedrito Suarez MD Primary Care Provider [phone] Allergies Active Allergy Reactions Criticality Noted Date [...] age to complete this topic Care Teams Director Funeral Relationship Specialty Start Date End Date Pedrito Suarez MD [address] [place] [address] [address] [place] [address] PCP - General Director Investment Banking 07/17/23
== END 2025-04-01 14:50 | disposition home or self-care (01) ==
LOC: HO.HKA 13:36
PROVIDERS: PCP Internal Medicine; Visit Provider Internal Medicine Hypertension Specialist
DX: N18.9 Chronic kidney disease, unspecified (principal)
CPT/HCPCS: 99214

== ENCOUNTER → 2025-04-01 13:36 | Outpatient (BNVA) | payer MEDICAID, SELFPAY | PROVIDERS: PCP Internal Medicine; Visit Provider Internal Medicine Hypertension Specialist | DX: E87.6 Hypokalemia (principal); I10 Essential (primary) hypertension; M10.9 Gout, unspecified; N18.30 Chronic kidney disease, stage 3 unspecified; E84.9 Cystic fibrosis, unspecified | CPT/HCPCS: 99212 ==

== ENCOUNTER 2025-04-08 14:31 | Outpatient (AMB) | payer MEDICAID, SELFPAY ==
[2025-04-08 14:34] VITALS: BP 126/82
--- NOTE | 2025-04-08 14:34 | HO.NEPHOV ---
Vital Signs 04/08/25 14:34 Height 5 ft 6 in BP 126/82 Blood Pressure Location Rt brachial Position Sitting Intake Visit Reasons: BPM Results Podiatric Technician Required: No Accompanied by: Self / Same As Patient Allergies guaifenesin (From ROBITUSSIN-DM) Allergy (Unknown, Verified 04/08/25 14:40) HIVES ciprofloxacin (From Cipro) Allergy (Verified 04/08/25 14:40) Hives From KEFLEX Allergy (Unknown, Uncoded 10/26/22 12:27) HIVES From ROBITUSSIN-DM Allergy (Unknown, Uncoded 10/26/22 12:27) HIVES Medication List - Last Reconciled 04/08/25 by Henrik Ochoa MD albuterol sulfate 90 mcg/actuation (Ventolin HFA) 2 puffs inhalation Q6H PRN amlodipine 5 mg PO DAILY budesonide-formoterol 160-4.5 mcg/actuation (Symbicort) 2 puffs inhalation BID bupropion HCl XL 150 mg PO DAILY PRN cholecalciferol (vitamin D3) 25 mcg PO DAILY clonidine HCl 0.1 mg PO DAILY PRN losartan 50 mg PO BID magnesium 125 mg PO BEDTIME PRN metoprolol succinate ER 25 mg PO DAILY mirtazapine 7.5 mg PO BEDTIME PRN multivitamin 1 tab PO DAILY potassium chloride ER 10 mEq PO DAILY HPI Comments Details: - The patient is a 49-year-old male presenting with decreased kidney function. - Chronic Kidney Disease: Referred for low kidney function, creatinine at 1.6 mg/dL, indicating 46% function. - Cystic Fibrosis: Managed with inhalers and antibiotics, last infection in 2020. - Gout: Last flare in December, treated with indomethacin. - Hypertension: Managed with losartan, hydralazine, and metoprolol, recent BP 150/100 mmHg. 04/01/25 The patient is a 49-year-old male presenting for follow-up of abnormal kidney function and hypertension management. In December, his creatinine level was elevated at 1.6, and he had recently taken indomethacin for gout. After discontinuing the NSAID, his kidney function improved, with the most recent creatinine level being 1.17, which is the best it has been in several months. The patient's blood pressure remains elevated, with past readings of 150/100 mmHg on March 07 and 140/86 mmHg on January 03. He is prescribed amlodipine 5 mg and losartan 50 mg twice daily but reported forgetting to take his medication this morning. His medical history is also significant for gout, with his uric acid level noted to be persistently high at 8.6, and mild hyperlipidemia. About 10 days ago, he experienced diarrhea for two days. He denies taking any diuretics and denies symptoms of lightheadedness. 04/08/25 Underwent 24 hour ambulatory blood pressure monitoring [facility] Medical History (Updated 04/08/25 @ 14:51 by Henrik Ochoa MD) Pancreatitis Gout Cystic fibrosis High blood pressure Surgical History History of kidney surgery Social History Household Members: Family Housing: House Do you presently have visiting nurse or other home services: No Patient Tobacco Use Status: Never used Tobacco service: No Current occupational status: employed Current occupation: customer service at airport/ rt hand Review of Systems ENT Reports neck mass Physical Exam Vital Signs: Last Vital Signs BP 126/82 04/08/25 14:34 Comfortable Neck supple no JVD. Lungs entry equal no rales. Heart S1-S2 heard no gallop or rub. Abdomen soft nontender. Neuro alert awake oriented. No asterixis. Extremities no edema. Office Procedures 24 B/P Monitor Interpretation Details: Suboptimal control of blood pressure. ABP M stage I hypertension. Minimal nocturnal dipping. CPT: 31226 24 Hour Blood Pressure Monitor Reading Procedure code (CPT) selection complete Results Reviewed Nephrology Results: Hgb, (14.0-18.0) 15.7 g/dl 03/31/25 WBC, (4.8-10.8) 9.9 X10*3/uL 03/31/25 Plt Count, (160-400) 268 X10*3/uL Δ 03/31/25 Sodium, (135-145) 140 mmol/L 03/31/25 Potassium, (3.3-5.1) 3.1 mmol/L L 03/31/25 Chloride, (96-108) 104 mmol/L 03/31/25 Carbon Dioxide, (22-29) 27 mmol/L 03/31/25 BUN, (9-16) 26 mg/dL H 03/31/25 Creatinine, (0.5-1.4) 1.17 mg/dL 03/31/25 Calcium, (8.4-10.2) 9.8 mg/dL 03/31/25 Urine Protein, (Neg-Trace) 30 (1+) mg/dL H 03/31/25 Urine Creatinine 58.06 mg/dL 03/31/25 Assessment & Plan Assessment & Plan (1) Elevated blood pressure reading in office with diagnosis of hypertension: Code(s): I10 - Essential (primary) hypertension Category: Medical (2) CKD (chronic kidney disease): Code(s): N18.9 - Chronic kidney disease, unspecified Category: Medical Plan 1. Chronic Kidney Disease Probably has stage III CKD. s/p ALBER due to hypoperfusion from the use of NSAIDs. Creatinine improved after stopping Indocin - Encourage hydration to support kidney function. 2. Cystic Fibrosis - Continue management with electronic industrial controls mechanic, using inhalers and antibiotics as needed. 3. Gout - Monitor uric acid levels, consider allopurinol if high. 4. Hypertension Blood pressure is suboptimal. Increase amlodipine from 5 mg up to 10 mg daily. Based on 24 hour ambulatory blood pressure monitoring 5. Hypokalemia Due to GI loss? Status post replacement. She will recheck potassium. If potassium stays persistently low in the setting of hypertension I will check serum aldosterone and plasma renin activity to rule out hyperaldosteronism. Obviously losartan has be held for at least 2 weeks prior to checking aldosterone. . Orders: Orders AMB 24 HR B/P Monitor INTERPRETATION 04/08/25 I10 - Essential (primary) hypertension Basic Metabolic Panel 4 Weeks N18.9 - Chronic kidney disease, unspecified Medications: Discontinued potassium chloride ER Discontinued Reason: Doctor's Order 10 mEq PO DAILY 3 caps 0RF Coding Level of Care Code Est Pt Level 4 (41954) Diagnoses Elevated blood pressure reading in office with diagnosis of hypertension I10 CKD (chronic kidney disease) N18.9 CPT Codes - CPT: 10999 24 Hour Blood Pressure Monitor Reading ([id number])
== END 2025-04-08 15:01 | disposition home or self-care (01) ==
LOC: HO.HKA 14:32
PROVIDERS: PCP Internal Medicine; Visit Provider Internal Medicine Hypertension Specialist
DX: I12.9 Hypertensive chronic kidney disease with stage 1 through stage 4 chronic kidney disease, or unspecified chronic kidney disease (principal); N18.9 Chronic kidney disease, unspecified
CPT/HCPCS: 93790; 99214

== ENCOUNTER → 2025-04-08 14:31 | Outpatient (BNVA) | payer MEDICAID, SELFPAY | PROVIDERS: PCP Internal Medicine; Visit Provider Internal Medicine Hypertension Specialist | DX: I12.9 Hypertensive chronic kidney disease with stage 1 through stage 4 chronic kidney disease, or unspecified chronic kidney disease (principal); N18.9 Chronic kidney disease, unspecified; M10.9 Gout, unspecified; E87.6 Hypokalemia; E84.9 Cystic fibrosis, unspecified | CPT/HCPCS: 93786; 93788; 99212 ==

== ENCOUNTER 2025-05-13 13:59 | Outpatient (AMB) | payer MEDICAID, SELFPAY ==
--- NOTE | 2025-05-13 14:00 | MHC.OFFVIS ---
Vital Signs 05/13/25 14:05 Height 5 ft 6 in Weight 179 lb 10.828 oz BMI 29.0 BP 124/82 Blood Pressure Location Lt brachial Position Sitting Pulse 73 Pulse Source Pulse Oximeter Pulse Oximetry (%) 99 Oxygen Delivery Method Room Air Intake Visit Reasons: OA Intake Note: New patient presents today for OA. Financial Risk Manager Required: No Information Interpreted: non-clinical & clinical Accompanied by: Self / Same As Patient Allergies guaifenesin (From ROBITUSSIN-DM) Allergy (Unknown, Verified 05/13/25 14:04) HIVES ciprofloxacin (From Cipro) Allergy (Verified 05/13/25 14:04) Hives From KEFLEX Allergy (Unknown, Uncoded 10/26/22 12:27) HIVES From ROBITUSSIN-DM Allergy (Unknown, Uncoded 10/26/22 12:27) HIVES Medication List - Last Reconciled 05/13/25 by Ameena Rey MD albuterol sulfate 90 mcg/actuation (Ventolin HFA) 2 puffs inhalation Q6H PRN allopurinol 100 mg PO DAILY amlodipine 10 mg PO DAILY budesonide-formoterol 160-4.5 mcg/actuation (Symbicort) 2 puffs inhalation BID bupropion HCl XL 150 mg PO DAILY PRN cholecalciferol (vitamin D3) 25 mcg PO DAILY clonidine HCl 0.1 mg PO DAILY PRN colchicine 0.6 mg PO DAILY losartan 50 mg PO BID magnesium 125 mg PO BEDTIME PRN metoprolol succinate ER 25 mg PO DAILY mirtazapine 7.5 mg PO BEDTIME PRN multivitamin 1 tab PO DAILY HPI Comments Details: 49-year-old male with a past medical history of hypertension and gout presenting to me for the evaluation of pain in wrists. He states in July 2023, at work fell down the stairs and scraped his knees and he did not have any fractures. He has had gout in the left ankle several times, last episode was 3 years ago. Also has had in the left toe He reports that the day of the fall, he was sent to [facility], and has been getting PT. Now his joint pain in the hands and knees and shoulders and left hand is better, but right hand continues to be in pain. In December, he present to the ED for right hand pain and swelling, at that time he was then admitted in the hospital for further evaluation. He has been evaluated by orthopedics and ID for right wrist swelling and pain. Workup was done: MR/MR wrist RT wo/w con IMPRESSION: There is evidence of a sen-carpal active synovitis with marrow edema and erosive changes most pronounced in triquetrum. The appearance is suspicious for an active inflammatory arthropathy such as rheumatoid arthritis, but septic arthritis and osteomyelitis is not ruled out. There is also evidence of mild tenosynovitis involving the fourth greater than second extensor compartments. Wrist joint aspiration was done which was negative for septic arthritis, no crystals were seen. On blood work, he has elevated ESR, CRP was elevated to. Patient also had negative RF CCP, he had a low titer positive ANA1: 40, uric acid 8.6 After infection was ruled out he was placed on prednsione taper and ibuprofen which helped his swelling and pain in his foot. Review of systems: Denies photosensitivity, Raynaud's, oral ulcers, skin rashes, some dry mouth, no dry eyes, no blood clot. FH: NOT SIGNIFICANT PHYSICAL EXAM General: Comfortable CVS: RRR Respiratory: clear to auscultation bilaterally. Good respiratory effort Skin: No lesions seen MSK: Patient was able to make a fist bilaterally He has no active synovitis noted today in the hands. Nontender MCPs PIPs. There is pain on deep palpation of the left wrist near the thumb. No swelling of the wrists noted bilaterally. Patient has very limited range of motion in both shoulders. Patient also has limited range of motion in both the hips. There is crepitus noted in the knees on flexion and extension. Ankles are not swollen today. Strength is 4/5 in the upper extremities and 4/5 in the lower extremities. [facility] Medical History (Updated 05/13/25 @ 14:47 by Ameena Rey MD) Pancreatitis Gout Cystic fibrosis High blood pressure Surgical History History of kidney surgery Social History Household Members: Family Housing: House Do you presently have visiting nurse or other home services: No Patient Tobacco Use Status: Never used Tobacco service: No Current occupational status: employed Current occupation: customer service at airport/ rt hand Assessment & Plan Assessment & Plan (1) Inflammatory arthropathy: Code(s): M19.90 - Unspecified osteoarthritis, unspecified site Category: Medical (2) Gout: Code(s): M10.9 - Gout, unspecified Category: Medical Qualifiers: Gout site: multiple sites Gout etiology: idiopathic Chronicity: chronic Plan 49-year-old male with a past medical history of hypertension presenting to me for the evaluation of pain in wrists. Based on his history, physical exam lab work and imaging, he does have inflammatory arthropathy affecting the right wrist causing erosive changes in the triquetrum and tenosynovitis. The inflammatory arthropathy seems to be more likely gout rather than rheumatoid arthritis as it is asymmetric, mainly affecting the right wrist. He also has a history of recurrent gout in his ankles and in the toe and has not been on a urate lowering agent. His uric acid level was elevated at 8.6. His RF and CCP were negative. At this time I would treat him for chronic gout I will start this patient on allopurinol 100 mg daily to lower his uric acid down to 6 which is goal for him. I will also start colchicine 0.6 mg daily for prophylaxis against gout flare. His last kidney functions and GFR were within normal range. I will follow up with him in 2 months to assess the responsive medication and to recheck blood work, CBC CMP uric acid ESR CRP In the interim I will also obtain x-rays of his shoulders given his very limited range of motion. I also obtain x-rays of his feet bilaterally, ankles bilaterally, knees bilaterally to see any evidence inflammatory arthritis. Follow-up in 2 months #Long-term use of colchicine Risks and benefits of long-term colchicine for the management of this patient's gout discussed with patient. Benefits include reduced occurrence of flares while we titrate and regulate his uric acid on allopurinol and other uric acid lowering medications. Risks include worsening myalgias especially if on statins and GI upset including diarrhea Orders: Orders XR hand LT 2V Today M19.90 - Unspecified osteoarthritis, unspecified site XR Foot David 2V Today M10.9 - Gout, unspecified, M19.90 - Unspecified osteoarthritis, unspecified site XR Ankle David min 3V Today M10.9 - Gout, unspecified, M19.90 - Unspecified osteoarthritis, unspecified site XR Knee David 1or 2V Today M10.9 - Gout, unspecified, M19.90 - Unspecified osteoarthritis, unspecified site XR sacroiliac joint 1-2V Today M10.9 - Gout, unspecified, M19.90 - Unspecified osteoarthritis, unspecified site XR lumbar spine 1V Today M10.9 - Gout, unspecified, M19.90 - Unspecified osteoarthritis, unspecified site XR wrist LT 2V Today M19.90 - Unspecified osteoarthritis, unspecified site XR Shoulder David 1V Today M10.9 - Gout, unspecified, M19.90 - Unspecified osteoarthritis, unspecified site Medications: New allopurinol 100 mg PO DAILY 30 tabs 2RF colchicine 0.6 mg PO DAILY 30 caps 2RF Coding Level of Care Code New Pt Level 4 (67201) Diagnoses Inflammatory arthropathy M19.90 Gout M10.9 Gout site: multiple sites Gout etiology: idiopathic Chronicity: chronic
[2025-05-13 14:05] VITALS: BP 124/82; PULSE 73; O2SAT 99; BMI 29.0
--- OUTSIDE RECORDS SUMMARY | 2025-05-13 17:49 | XMS_ITS | Clinical Summary ---
Author Organization [facility] Address [address] [facility] 7 [place] [address] Care Team Providers Care Itinerant Teacher Assistant Name Role Phone Unavailable Primary Care Provider [...]
--- OUTSIDE RECORDS SUMMARY | 2025-05-13 17:49 | XMS_ITS | Encounter Summary ---
Author Organization [facility] Address [address] [place] [address] [place] [address] Phone Care Team Providers Care Methane Gas Collection System Operator Name Role Phone Pedrito Suarez MD Primary Care Provider Encounter Details Date Type Department Care Team (Late st Contact Info) Description 08/05/2020 Procedure Pass [facility] [address] [place] [address] Social History Tobacco Use Types Packs/Day Years [...] Time CF Comment:Added as part of the [facility] Supplemental Conversion 01/24/2005 01/24/2005 CoV-Risk Comment:Per note documentation 08/04/2020 08/05/2020 1:51 PM EDT documented as of this encounter Care Teams Methane Gas Collection System Operator Relationship Specialty Start Date End Date Pedrito Suarez MD [address] [place] [address] [address] [place] [address] PCP - General 09/18/14 documented as of this encounter Additional Source Comments The information contained in this document represents components of the legal health record. It is not the complete legal health record.[facility]
--- OUTSIDE RECORDS SUMMARY | 2025-05-13 17:49 | XMS_ITS | Clinical Summary ---
Author Organization [facility] Address [address] [place] [address] Phone Care Team Providers Care Contact Lens Blocker And Cutter Name Role Phone Pedrito Suarez MD Primary [...] 1 tablet by mouth daily. 05/01/2023 Active [id number] on fum-folic ac 7.5 mg iron-400 mcg [...] rash. Replaced with cefepime after curbsiding ID director of land re cefepime vs aztreonam as aztreonam with [...] EDT) SODIUM 140 136 - 145 mmol/L [facility] POTASSIUM RESULT NOT REPORTED, HEMOLYSIS 3.4 - 5.1 mmol/L [facility] CHLORIDE 99 98 - 107 mmol/L [facility] CO2 25 22 - 31 mmol/L [facility] BUN 22 6 - 23 mg/dL [facility] CREATININE 1.34(H) 0.50 - 1.20 mg/dL [facility] GLUCOSE 112(H) 70 - 100 mg/dL [facility] ALBUMIN 4.0 3.5 - 5.2 g/dL [facility] TOTAL PROTEIN 7.1 6.4 - 8.3 g/dL [facility] CALCIUM 9.6 8.8 - 10.7 mg/dL [facility] ALKALINE PHOSPHATASE 90 35 - 130 U/L [facility] TOTAL BILIRUBIN 1.1(H) 0.0 - 1.0 mg/dL [facility] AST RESULT NOT REPORTED, HEMOLYSIS 10 - 50 U/L [facility] Comment: ALT RESULT NOT REPORTED, HEMOLYSIS 10 - 50 U/L [facility] Comment: GLOBULIN 3.1 2.2 - 4.2 g/dL [facility] EGFR 66 >59 mL/min/1 .73m2 [facility] Comment:Estimated glomerular filtration rate calculated using the CKD-EPI refit equation. ANION GAP 16 7 - 17 mmol/L [facility] 09/27/2023 4:54 PM EDT 09/27/2023 5:58 PM EDT Cory Camejo MD LAB BLOOD BKR ORDERABLES Fin al Result Performing Organization Address [facility] Co de Phone Number [address] [address] * (ABNORMAL) Lipid panel (10/29/2020 3:57 PM EDT) CHOLESTEROL 188 <200 mg/dL [facility] TRIGLYCERIDES 343(H) 35 - 150 mg/dL [facility] HDL 39(L) 40 - 80 mg/dL [facility] CALCULATED LDL 80 50 - 129 mg/dL [facility] VLDL 69 mg/dL [facility] CARDIAC RISK RATIO 4.8(H) 0.0 - 4.0 [facility] 10/29/2020 3:57 PM EDT 10/29/2020 4:16 PM EDT Zaida Vivas MD, PhD LAB BLOOD BKR ORD ERABLES Final Result Performing Organization Address City/[facility]/ZIP Co de Phone Number [address] [place] [address] * (ABNORMAL) Glucose (2020 9:36 AM EDT) GLUCOSE 184(H) 70 - 100 mg/dL [facility] 2020 9:36 AM EDT 2020 11:33 AM EDT Comment:#2HR Yuly Villalobos PA-C LAB BLOOD BKR ORDERABLES Final Result [facility] [address] [place] [address] from Last 3 Months or Most Recently Relevant to Health Maintenance Additional Health Concerns Infection Onset Date Last Indicated CF Comment:Added as part of the [facility] Supplemental Conversion 01/24/2005 01/24/2005 Insurance C3 ACO C3 ACO C3 ACO C[address] [place] [address] [place] [address] C3 ACO C3 ACO C3 ACO C3 ACO C3 ACO Advance Directives For more information, please contact: [phone] (9AM - 5PM [facility], Monday-Monday) * Full Code (Latest Code [...] 9:42 PM 10/29/2015 4:58 PM Care Teams Contact Lens Blocker And Cutter Relationship Specialty Start Date End Date Pedrito Suarez MD [address] [place] [address] [place] [address] PCP - General 09/18/14 Additional Source Comments The information contained in this document represents components of the legal health record. It is not the complete legal health record.[facility]
--- OUTSIDE RECORDS SUMMARY | 2025-05-13 17:49 | XMS_ITS | Encounter Summary ---
Author Organization [facility] Address [address] [place] [address] [place] [address] Phone Care Team Providers Care Steam Crane Operator Name Role Phone Pedrito Suarez MD Primary Care Provider Encounter Details Date Type Department Care Team (Late st Contact Info) Description 03/17/2017 Telephone [facility] Angio Interventional Radiology [address] [place] [address] Olga Em, TANIA Social History Tobacco Use [...] CF Comment:Added as part of the [facility] Supplemental Conversion 01/24/2005 01/24/2005 CoV-Risk Comment:Per note documentation 08/04/2020 08/05/2020 1:51 PM EDT documented as of this encounter Care Teams Steam Crane Operator Relationship Specialty Start Date End Date Pedrito Suarez MD [address] [place] [address] Dr [place] [address] PCP - General 5/7/15 documented as of this encounter Additional Source Comments The information contained in this document represents components of the legal health record. It is not the complete legal health record.[facility]
--- OUTSIDE RECORDS SUMMARY | 2025-05-13 17:49 | XMS_ITS | Encounter Summary ---
Author Organization [facility] Address [address] [place] [address] [place] [address] Phone Care Team Providers Care Senior Sales Director Name Role Phone Pedrito Suarez MD Primary Care Provider Encounter Details Date Type Department Care Team (Late st Contact Info) Description 07/31/2020 Procedure Pass [facility] Angio Interventional Radiology [address] [place] [address] Social History Tobacco Use Types Packs/Day Years [...] Time CF Comment:Added as part of the [facility] Supplemental Conversion 01/24/2005 01/24/2005 CoV-Risk Comment:Per note documentation 08/04/2020 08/05/2020 1:51 PM EDT documented as of this encounter Care Teams Senior Sales Director Relationship Specialty Start Date End Date Pedrito Suarez MD [address] [place] [address] [address] [place] [address] PCP - General 09/18/14 documented as of this encounter Additional Source Comments The information contained in this document represents components of the legal health record. It is not the complete legal health record.[facility]
--- OUTSIDE RECORDS SUMMARY | 2025-05-13 17:49 | XMS_ITS | Encounter Summary ---
Author Organization [facility] spital Address [address] [place] [address] Phone Care Team Providers Care Armhole Sewer Name Role Phone Pedrito Suarez MD Primary Care Provider [phone] Pedrito Suarez MD Unavailable Asya Calixto MD Unavailable [phone] Pedrito Suarez MD Unavailable [phone] Celeste Chawla [facility] Unavailable [facility] Unavailable [phone] Alcira Johnston Unavailable [phone] Zaida Vivas MD Unavailable [phone] Alcira Johnston Primary Care Provider Reason for Visit * Reason Comments Social work f/u; financial insecurity Encounter Details Date Type Department Care Team (Late st Contact Info) Description 11/02/2023 Social Work [address] [phone] Celeste Chawla LICSW [address] [place] [id number] Social History Tobacco Use Types Packs/Day Years Used Date Smoking Tobacco: Never Assessed Sex and Gender Information Value Date Recorded Sex Assigned at Male 07/04/2024 10:02 AM EST Legal Sex Male 9:59 AM EDT Gender Identity Male 07/04/2024 10:02 AM EST Sexual Orientation Straight 07/04/2024 10 :02 AM EST documented as of this encounter Progress Notes * Celeste Chawla, MANAGER FIELD SERVICES - 11/02/2023 3:26 PM EDT Confidential Social Work Brief Screen (PAS) Psychosocial Acuity Scale Psychosocial Issue (Insurance/Finances): Financial insecurity Level: High Social Work Psychosocial Assessment Confidential Custody Status: Preferred Languages: Patient Preferred Language: Sinhala Referral Data Visit Type: Not in person [...] Work Note Presenting concerns: financial insecurity CF Physician Neonatology: Zaida Vivas MD, PhD Visit Type: Virtual - Phone Total Time: 30 minutes Safety concerns today?: No Wilman (he/him/his) is a 48 y.o. patient diagnosed with cystic fibrosis who is followed by Dr. Vivas in the [facility]. Patient is known to [...] WALTER coordinated with psychologist Tamanna Wade and wire preparation machine tender to confirm patient would be able to have an appointment scheduled for a psychotherapy visit soon. FOLLOW-UP SW will remain available and continue to follow. Patient is aware of SW ongoing availability and contact information. Per Cystic [employer] guidelines, all patients diagnosed with cystic fibrosis are requiredto have an assigned social media campaign manager and be encouraged to meet annually with a social media campaign manager for social work needs assessment and mental health screenings. [facility] Pager: [phone] documented in this encounter Plan of Treatment Upcoming Encounters Date Type Department Care Team (Late st Contact Info) Description 05/22/2025 4:00 PM EST Telemedicine [facility] [address] [place] [phone] Tamanna Wade, PhD [address] [place] [address] 06/19/2025 4:00 PM EST Office Visit [facility] [address] [place] [phone] Zaida Vivas MD [address] [place] [address] documented as of this encounter Visit Diagnoses Not on filedocumented in this encounter Additional Health Concerns Infection Onset Date Last Indicated Resolved Time Cystic fibrosis 12/01/2023 12/01/2023 MDR Pseudomonas aeruginosa 12/06/2023 12/06/2023 documented as of this encounter Care Teams Armhole Sewer Relationship Specialty Start Date End Date Pedrito Suarez MD [facility] [address] [place] [address] PCP - General 09/08/23 01/08/25 Pedrito Suarez MD [facility] [address] [place] [address] PCP - Insurance PCP 09/29/17 01/08/25 Pedrito Suarez MD [address] [address] PCP - Insurance Identified PCP 11/13/23 08/19/24 [facility] [address] [place] [address] PCP - Insurance Identified PCP 08/20/24 11/13/[address] [facility] [address] [place] [address] PCP - Insurance Identified PCP 11/14/24 Alcira Johnston [address] [place] [address] [place] [address] PCP - General Internal Medicine 04/18/25 Asya Calixto MD [address] [place] [address] Crew Supervisor 10/14/23 Celeste Chawla LICSW [address] [place] [address] Edge Plugger Social Work 04/15/24 Zaida Vivas MD [address] [place], [place] [phone] Associate Attending Pulmonary Diseases 01/28/25 documented as of this encounter
--- OUTSIDE RECORDS SUMMARY | 2025-05-13 17:49 | XMS_ITS | Clinical Summary ---
Author Organization [facility] spital Address [address] [place] [address] Phone Care Team Providers Care Vehicle Controls Engineer Name Role Phone Asya Calixto MD Unavailable [phone] Celeste ChawlaSW Unavailable [phone] Alcira Johnston Unavailable [phone] Zaida Vivas MD Unavailable [phone] Alcira Johnston Primary Care Provider Allergies Active Allergy Reactions [...] 30 tab, Refills: 0, Entered: 01/12/16 17:29:05 [id number] 01/12/20 16 Active metoprolol succinate XL 25 mg extended release tablet Take 25 mg by mouth 1 time each day. Patient unsure of dose but thinks he takes 25mg daily. Active multivit-min/iron fum/folic ac (multivitamin with minerals) 7.5 mg iron-400 mcg tablet Take 1 tablet by mouth 1 time each day. Takes Vigix OTC multivitamin 1 tab daily Active NIFEdipine XL 30 mg extended release tabletIndications: Hypertension, unspecified type Take 30 mg = 1 tablet by mouth 1 time each day. Do not crush, chew, or split. 30 tablet 11 04/28/20 24 Active cholecalciferol 25 MCG (1000 UT) capsuleIndications [...] Encounters Date Type Department Care Team Description 05/05/2025 Social Work [facility] [address] [place] [phone] Celeste Chawla 4 H YOUTH DEVELOPMENT SPECIALIST 05/01/2025 3:00 PM EST Telemedicine [facility] [address] [place] [phone] Tamanna Wade, PhD 04/17/2025 3:00 PM EST Telemedicine [facility] [address] [place] [phone] Tamanna Wade, PhD BRITTA (generalized anxiety disorder) (Primary Dx); PTSD (post-traumatic stress disorder); Current moderate episode of major depressive disorder without prior episode (HCC) 04/03/2025 4:00 PM EST Telemedicine [facility] [address] [place] [phone] Tamanna Wade, PhD BRITTA (generalized anxiety disorder) (Primary Dx); PTSD (post-traumatic stress disorder); Current moderate episode of major depressive disorder without prior episode (HCC) 03/13/2025 3:00 PM EDT Telemedicine [facility] [address] [place] [phone] Tamanna Wade, PhD BRITTA (generalized anxiety disorder) (Primary Dx); PTSD (post-traumatic stress disorder); Current moderate episode of major depressive disorder without prior episode (HCC) 03/04/2025 2:00 PM EDT Telemedicine [facility] [address] [place] [phone] Tamanna Wade, PhD BRITTA (generalized anxiety disorder) (Primary Dx); PTSD (post-traumatic stress disorder); Current moderate episode of major depressive disorder without prior episode (HCC) 02/21/2025 2:00 PM EDT Telemedicine [facility] [address] [place] [phone] Tamanna Wade, PhD BRITTA (generalized anxiety disorder) [...] Info) Description 05/22/2025 4:00 PM EST Telemedicine [facility] [address] [place] [phone] Tamanna Wade, PhD [address] [place] [phone] 06/19/2025 4:00 PM EST Office Visit [facility] [address] [place] [phone] Zaida Vivas MD [address] [place] [phone] Health Maintenance Due Date Last Done Comments Chlamydia and Gonorrhea Screening 1976 HIV Screening 1976 MMR Vaccines (1 of 1 - Standard series) 1977 DTaP/Tdap/Td Vaccines (1 - Tdap) 08/14/1983 Varicella Vaccines (1 of 2 - 13+ 2-dose series) 1989 Hepatitis C Screening 1994 Hepatitis B Vaccines (1 of 3 - 19+ 3-dose series) 08/14/1995 COVID-19 Vaccine (4 - 2024- season) 2025 05/25/2021, 10/08/2020, 09/10/2020 Influenza Vaccine (#1) 2025 [...] 12/01/2023 12/01/2023 MDR Pseudomonas aeruginosa 12/06/202312/05 Insurance [facility] Care Teams Vehicle Controls Engineer Relationship Specialty Start Date End Date Alcira Johnston [address] [place] [address] PCP - Insurance Identified PCP 11/14/24 Alcira Johnston [address] [place] [address] [place] [address] PCP - General Internal Medicine 04/18/25 Asya Calixto MD [address] [place] [phone] HC Rcis 10/14/23 Celeste Chawla LICSW [address] [place] [address] Director Of Institutional Sales Social Work 04/15/24 Zaida Vivas MD [address] [place] [phone] Associate Attending Pulmonary Diseases 01/28/25
--- OUTSIDE RECORDS SUMMARY | 2025-05-13 17:49 | XMS_ITS | Encounter Summary ---
Author Organization [facility] sp[facility] Address [address] [place] [address] Phone Care Team Providers Care Irs Agent Name Role Phone Pedrito Suarez MD Primary Care Provider Pedrito Suarez MD Unavailable Asya Calixto MD Unavailable Pedrito Suarez MD Unavailable Celeste Chawla [facility] Unavailable [phone] [facility] Unavailable Alcira Johnston Unavailable Zaida Vivas MD Unavailable Alcira Johnston Primary Care Provider [phone] Encounter Details Date Type Department Care Team (Late st Contact Info) Description 03/05/2024 Orders Only [facility] [address] [place] [phone] Lilli Suárez RN [address] [place] [address] Cystic fibrosis (HCC) Social History Tobacco Use [...] Info) Description 05/22/2025 4:00 PM EST Telemedicine [facility] [address] [place] [phone] Tamanna Wade, PhD [address] [place] [address] 06/19/2025 4:00 PM EST Office Visit [facility] [address] [place] [phone] Zaida Vivas MD [address] [place] [phone] documented as of this encounter Visit Diagnoses Diagnosis Cystic fibrosis 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 documented in this encounter Additional Health Concerns Infection Onset Date Last Indicated Resolved Time Cystic fibrosis 12/01/2023 12/01/2023 MDR Pseudomonas aeruginosa 12/06/2023 12/06/2023 documented as of this encounter Care Teams Irs Agent Relationship Specialty Start Date End Date Pedrito Suarez MD [address] [address] PCP - General 09/08/23 01/08/25 Pedrito Suarez MD [address] [address] PCP - Insurance PCP 09/29/17 01/08/25 Pedrito Suarez MD [address] [address] PCP - Insurance Identified PCP 11/13/23 08/19/24 [facility] [address] [place] [id number] PCP - Insurance Identified PCP 08/20/24 11/13/24 Alcira Johnston [address] [facility] [address] [place] [address] PCP - Insurance Identified PCP 11/14/24 Alcira Johnston [address] [place] [phone] PCP - General Internal Medicine 04/18/25 Asya Calixto MD [address] [place] [phone] HC Product Manager 10/14/23 Celeste Chawla, [facility] [address] [place] [address] Joinery Setter Out Social Work 04/15/24 Zaida Vivas MD [address] [place] [address] Associate Attending Pulmonary Diseases 01/28/25 documented as of this encounter
--- OUTSIDE RECORDS SUMMARY | 2025-05-13 17:49 | XMS_ITS | Clinical Summary ---
Author Organization [facility] ity Address [address] [place] [address] Care Team Providers Care Concrete Crusher Loader Operator Name Role Phone Pedrito Suarez MD Primary Care Provider [phone] Medical History Medical History Date Comments Hypertension [...] age to complete this topic Care Teams Concrete Crusher Loader Operator Relationship Specialty Start Date End Date Pedrito Suarez MD [address] [place] [address] Dr Edgar [place] PCP - General 07/17/23
--- OUTSIDE RECORDS SUMMARY | 2025-05-13 17:49 | XMS_ITS | Encounter Summary ---
Author Organization [facility] Address [address] [place] [address] [place] [address] Phone Care Team Providers Care Shovel Oiler Name Role Phone Pedrito Suarez MD Primary Care Provider Encounter Details Date Type Department Care Team (Late st Contact Info) Description 03/23/2017 Procedure [facility] [address] [place] [address] Social History Tobacco Use Types Packs/Day Years [...] Time CF Comment:Added as part of the [facility] Supplemental Conversion 01/24/2005 01/24/2005 CoV-Risk Comment:Per note documentation 08/04/2020 08/05/2020 1:51 PM EDT documented as of this encounter Care Teams Shovel Oiler Relationship Specialty Start Date End Date Pedrito Suarez MD [address] [place] [address] [address] [place] [address] PCP - General 09/18/14 documented as of this encounter Additional Source Comments The information contained in this document represents components of the legal health record. It is not the complete legal health record.[facility]
--- OUTSIDE RECORDS SUMMARY | 2025-05-13 17:49 | XMS_ITS | Clinical Summary ---
Author Organization [facility] Prior to 10/12/[address] [place] [address] Care Team Providers Care Methods Specialist Name Role Phone Pedrito Suarez MD Primary Care Provider [phone] Allergies Active Allergy Reactions Criticality Noted Date [...] age to complete this topic Care Teams Methods Specialist Relationship Specialty Start Date End Date Pedrito Suarez MD [address] [place] [address] Dr Dodson [address] [place] [address] PCP - General Sales Enablement Lead 07/17/23
--- OUTSIDE RECORDS SUMMARY | 2025-05-13 17:49 | XMS_ITS | Encounter Summary ---
Author Organization [facility] Address [address] [place] [address] [place] [address] Phone Care Team Providers Care Hydrogen Operator Name Role Phone Pedrito Suarez MD Primary Care Provider Encounter Details Date Type Department Care Team (Late st Contact Info) Description 07/31/2020 Telephone [facility] Angio Interventional Radiology [address] [place], [place] [phone] Reyes Staton RN [address] [place] [phone] [email or web address] Social History Tobacco Use Types Packs/Day [...] Time CF Comment:Added as part of the [facility] Supplemental Conversion 01/24/2005 01/24/2005 CoV-Risk Comment:Per note documentation 08/04/2020 08/05/2020 1:51 PM EDT documented as of this encounter Care Teams Hydrogen Operator Relationship Specialty Start Date End Date Pedrito Suarez MD [address] [place] [address] [address] [place] [address] PCP - General 09/18/14 documented as of this encounter Additional Source Comments The information contained in this document represents components of the legal health record. It is not the complete legal health record.[facility]
== END 2025-05-13 14:45 | disposition home or self-care (01) ==
LOC: HO.RHES 13:59
PROVIDERS: PCP Internal Medicine; Visit Provider Student in an Organized Health Care Education/Training Program
DX: M19.90 Unspecified osteoarthritis, unspecified site (principal); M10.9 Gout, unspecified
CPT/HCPCS: 99204

== ENCOUNTER 2025-05-13 13:59 | Outpatient (REF) | payer MEDICAID, SELFPAY ==
--- NOTE | ~2025-05-13 | XR_ITS ---
EXAMINATION: Left wrist, bilateral hands, bilateral foot, bilateral ankle and bilateral knee, bilateral shoulder, lumbar spine and SI joints. CLINICAL INDICATION: Osteoarthritis. COMPARISON: Right hand and right wrist 11/18/2024 FINDINGS: Left wrist 3 views: The radial ulnar carpal, intercarpal and carpometacarpal joint spaces preserved. No bony erosive changes, osteophytes, fracture seen. No abnormal joint effusion seen. Left hand 4 views: The MCP and interphalangeal joint spaces are maintained normal. No bony erosive changes, fracture, dislocation or bony erosive changes. The soft tissues are normal. There is an old injury phalangeal tuft third digit. Bilateral shoulders: There is mild reduction in bilateral glenohumeral joint space. No bony erosive changes, loose bodies or soft tissue calcification seen. There is a sclerotic round density right humeral neck likely small bone island. Bilateral knee: 2 views of each knee were obtained. The tricompartment joint space of both knees is maintained. No visible fracture or dislocation seen. There is a small anterior spur and disc heights along the superior patella both knees. No joint effusion seen. No bony erosive changes or loose bodies. Bilateral ankle 3 views each. The ankle mortise and subtalar joints of both knees are maintained normal. No bony erosive changes, soft tissue calcifications are loose bodies seen. No acute fracture or dislocation. The soft tissues are normal. Bilateral foot 3 views each. Visualized tarsal metatarsal, metatarsophalangeal and third phalangeal joint spaces are maintained normal. No bony erosive changes, loose bodies or soft tissue swelling. Lumbar spine 3 views: There is normal lumbar lordosis. The vertebral heights, alignment and disc heights are normal. There is mild ventral spondylosis at the L3-4, L4-5 and L5-S1 disc levels. No aggressive lytic or sclerotic process seen. The soft tissues are normal. SI joints: The SI joints are symmetrical and normal. No bony erosive changes, sclerosis seen. Visualized pelvic bones are grossly unremarkable as well. XR/XR sacroiliac joint 1-2V IMPRESSION: Unremarkable left hand and left wrist. Unremarkable bilateral shoulders, bilateral knee, bilateral ankle, bilateral foot, lumbar spine and SI joints. Electronically signed by: Kishore Barba MD 05/14/2025 07:35 AM EST
--- NOTE | ~2025-05-13 | XR_ITS ---
EXAMINATION: Left wrist, bilateral hands, bilateral foot, bilateral ankle and bilateral knee, bilateral shoulder, lumbar spine and SI joints. CLINICAL INDICATION: Osteoarthritis. COMPARISON: Right hand and right wrist 11/18/2024 FINDINGS: Left wrist 3 views: The radial ulnar carpal, intercarpal and carpometacarpal joint spaces preserved. No bony erosive changes, osteophytes, fracture seen. No abnormal joint effusion seen. Left hand 4 views: The MCP and interphalangeal joint spaces are maintained normal. No bony erosive changes, fracture, dislocation or bony erosive changes. The soft tissues are normal. There is an old injury phalangeal tuft third digit. Bilateral shoulders: There is mild reduction in bilateral glenohumeral joint space. No bony erosive changes, loose bodies or soft tissue calcification seen. There is a sclerotic round density right humeral neck likely small bone island. Bilateral knee: 2 views of each knee were obtained. The tricompartment joint space of both knees is maintained. No visible fracture or dislocation seen. There is a small anterior spur and disc heights along the superior patella both knees. No joint effusion seen. No bony erosive changes or loose bodies. Bilateral ankle 3 views each. The ankle mortise and subtalar joints of both knees are maintained normal. No bony erosive changes, soft tissue calcifications are loose bodies seen. No acute fracture or dislocation. The soft tissues are normal. Bilateral foot 3 views each. Visualized tarsal metatarsal, metatarsophalangeal and third phalangeal joint spaces are maintained normal. No bony erosive changes, loose bodies or soft tissue swelling. Lumbar spine 3 views: There is normal lumbar lordosis. The vertebral heights, alignment and disc heights are normal. There is mild ventral spondylosis at the L3-4, L4-5 and L5-S1 disc levels. No aggressive lytic or sclerotic process seen. The soft tissues are normal. SI joints: The SI joints are symmetrical and normal. No bony erosive changes, sclerosis seen. Visualized pelvic bones are grossly unremarkable as well. XR/XR hand LT min 3V IMPRESSION: Unremarkable left hand and left wrist. Unremarkable bilateral shoulders, bilateral knee, bilateral ankle, bilateral foot, lumbar spine and SI joints. Electronically signed by: Kishore Barba MD 05/14/2025 07:35 AM [facility]
--- NOTE | ~2025-05-13 | XR_ITS ---
EXAMINATION: Left wrist, bilateral hands, bilateral foot, bilateral ankle and bilateral knee, bilateral shoulder, lumbar spine and SI joints. CLINICAL INDICATION: Osteoarthritis. COMPARISON: Right hand and right wrist 11/18/2024 FINDINGS: Left wrist 3 views: The radial ulnar carpal, intercarpal and carpometacarpal joint spaces preserved. No bony erosive changes, osteophytes, fracture seen. No abnormal joint effusion seen. Left hand 4 views: The MCP and interphalangeal joint spaces are maintained normal. No bony erosive changes, fracture, dislocation or bony erosive changes. The soft tissues are normal. There is an old injury phalangeal tuft third digit. Bilateral shoulders: There is mild reduction in bilateral glenohumeral joint space. No bony erosive changes, loose bodies or soft tissue calcification seen. There is a sclerotic round density right humeral neck likely small bone island. Bilateral knee: 2 views of each knee were obtained. The tricompartment joint space of both knees is maintained. No visible fracture or dislocation seen. There is a small anterior spur and disc heights along the superior patella both knees. No joint effusion seen. No bony erosive changes or loose bodies. Bilateral ankle 3 views each. The ankle mortise and subtalar joints of both knees are maintained normal. No bony erosive changes, soft tissue calcifications are loose bodies seen. No acute fracture or dislocation. The soft tissues are normal. Bilateral foot 3 views each. Visualized tarsal metatarsal, metatarsophalangeal and third phalangeal joint spaces are maintained normal. No bony erosive changes, loose bodies or soft tissue swelling. Lumbar spine 3 views: There is normal lumbar lordosis. The vertebral heights, alignment and disc heights are normal. There is mild ventral spondylosis at the L3-4, L4-5 and L5-S1 disc levels. No aggressive lytic or sclerotic process seen. The soft tissues are normal. SI joints: The SI joints are symmetrical and normal. No bony erosive changes, sclerosis seen. Visualized pelvic bones are grossly unremarkable as well. XR/XR Foot David 3V IMPRESSION: Unremarkable left hand and left wrist. Unremarkable bilateral shoulders, bilateral knee, bilateral ankle, bilateral foot, lumbar spine and SI joints. Electronically signed by: Kishore Barba MD 05/14/2025 07:35 AM [facility]
--- NOTE | ~2025-05-13 | XR_ITS ---
EXAMINATION: Left wrist, bilateral hands, bilateral foot, bilateral ankle and bilateral knee, bilateral shoulder, lumbar spine and SI joints. CLINICAL INDICATION: Osteoarthritis. COMPARISON: Right hand and right wrist 11/18/2024 FINDINGS: Left wrist 3 views: The radial ulnar carpal, intercarpal and carpometacarpal joint spaces preserved. No bony erosive changes, osteophytes, fracture seen. No abnormal joint effusion seen. Left hand 4 views: The MCP and interphalangeal joint spaces are maintained normal. No bony erosive changes, fracture, dislocation or bony erosive changes. The soft tissues are normal. There is an old injury phalangeal tuft third digit. Bilateral shoulders: There is mild reduction in bilateral glenohumeral joint space. No bony erosive changes, loose bodies or soft tissue calcification seen. There is a sclerotic round density right humeral neck likely small bone island. Bilateral knee: 2 views of each knee were obtained. The tricompartment joint space of both knees is maintained. No visible fracture or dislocation seen. There is a small anterior spur and disc heights along the superior patella both knees. No joint effusion seen. No bony erosive changes or loose bodies. Bilateral ankle 3 views each. The ankle mortise and subtalar joints of both knees are maintained normal. No bony erosive changes, soft tissue calcifications are loose bodies seen. No acute fracture or dislocation. The soft tissues are normal. Bilateral foot 3 views each. Visualized tarsal metatarsal, metatarsophalangeal and third phalangeal joint spaces are maintained normal. No bony erosive changes, loose bodies or soft tissue swelling. Lumbar spine 3 views: There is normal lumbar lordosis. The vertebral heights, alignment and disc heights are normal. There is mild ventral spondylosis at the L3-4, L4-5 and L5-S1 disc levels. No aggressive lytic or sclerotic process seen. The soft tissues are normal. SI joints: The SI joints are symmetrical and normal. No bony erosive changes, sclerosis seen. Visualized pelvic bones are grossly unremarkable as well. XR/XR lumbar spine 2-3V IMPRESSION: Unremarkable left hand and left wrist. Unremarkable bilateral shoulders, bilateral knee, bilateral ankle, bilateral foot, lumbar spine and SI joints. Electronically signed by: Kishore Barba MD 05/14/2025 07:35 AM [facility] [place]
--- NOTE | ~2025-05-13 | XR_ITS ---
EXAMINATION: Left wrist, bilateral hands, bilateral foot, bilateral ankle and bilateral knee, bilateral shoulder, lumbar spine and SI joints. CLINICAL INDICATION: Osteoarthritis. COMPARISON: Right hand and right wrist 11/18/2024 FINDINGS: Left wrist 3 views: The radial ulnar carpal, intercarpal and carpometacarpal joint spaces preserved. No bony erosive changes, osteophytes, fracture seen. No abnormal joint effusion seen. Left hand 4 views: The MCP and interphalangeal joint spaces are maintained normal. No bony erosive changes, fracture, dislocation or bony erosive changes. The soft tissues are normal. There is an old injury phalangeal tuft third digit. Bilateral shoulders: There is mild reduction in bilateral glenohumeral joint space. No bony erosive changes, loose bodies or soft tissue calcification seen. There is a sclerotic round density right humeral neck likely small bone island. Bilateral knee: 2 views of each knee were obtained. The tricompartment joint space of both knees is maintained. No visible fracture or dislocation seen. There is a small anterior spur and disc heights along the superior patella both knees. No joint effusion seen. No bony erosive changes or loose bodies. Bilateral ankle 3 views each. The ankle mortise and subtalar joints of both knees are maintained normal. No bony erosive changes, soft tissue calcifications are loose bodies seen. No acute fracture or dislocation. The soft tissues are normal. Bilateral foot 3 views each. Visualized tarsal metatarsal, metatarsophalangeal and third phalangeal joint spaces are maintained normal. No bony erosive changes, loose bodies or soft tissue swelling. Lumbar spine 3 views: There is normal lumbar lordosis. The vertebral heights, alignment and disc heights are normal. There is mild ventral spondylosis at the L3-4, L4-5 and L5-S1 disc levels. No aggressive lytic or sclerotic process seen. The soft tissues are normal. SI joints: The SI joints are symmetrical and normal. No bony erosive changes, sclerosis seen. Visualized pelvic bones are grossly unremarkable as well. XR/XR wrist LT min 3V IMPRESSION: Unremarkable left hand and left wrist. Unremarkable bilateral shoulders, bilateral knee, bilateral ankle, bilateral foot, lumbar spine and SI joints. Electronically signed by: Kishore Barba MD 05/14/2025 07:35 AM [facility] - [place]
--- NOTE | ~2025-05-13 | XR_ITS ---
EXAMINATION: Left wrist, bilateral hands, bilateral foot, bilateral ankle and bilateral knee, bilateral shoulder, lumbar spine and SI joints. CLINICAL INDICATION: Osteoarthritis. COMPARISON: Right hand and right wrist 11/18/2024 FINDINGS: Left wrist 3 views: The radial ulnar carpal, intercarpal and carpometacarpal joint spaces preserved. No bony erosive changes, osteophytes, fracture seen. No abnormal joint effusion seen. Left hand 4 views: The MCP and interphalangeal joint spaces are maintained normal. No bony erosive changes, fracture, dislocation or bony erosive changes. The soft tissues are normal. There is an old injury phalangeal tuft third digit. Bilateral shoulders: There is mild reduction in bilateral glenohumeral joint space. No bony erosive changes, loose bodies or soft tissue calcification seen. There is a sclerotic round density right humeral neck likely small bone island. Bilateral knee: 2 views of each knee were obtained. The tricompartment joint space of both knees is maintained. No visible fracture or dislocation seen. There is a small anterior spur and disc heights along the superior patella both knees. No joint effusion seen. No bony erosive changes or loose bodies. Bilateral ankle 3 views each. The ankle mortise and subtalar joints of both knees are maintained normal. No bony erosive changes, soft tissue calcifications are loose bodies seen. No acute fracture or dislocation. The soft tissues are normal. Bilateral foot 3 views each. Visualized tarsal metatarsal, metatarsophalangeal and third phalangeal joint spaces are maintained normal. No bony erosive changes, loose bodies or soft tissue swelling. Lumbar spine 3 views: There is normal lumbar lordosis. The vertebral heights, alignment and disc heights are normal. There is mild ventral spondylosis at the L3-4, L4-5 and L5-S1 disc levels. No aggressive lytic or sclerotic process seen. The soft tissues are normal. SI joints: The SI joints are symmetrical and normal. No bony erosive changes, sclerosis seen. Visualized pelvic bones are grossly unremarkable as well. XR/XR Knee David 1or 2V IMPRESSION: Unremarkable left hand and left wrist. Unremarkable bilateral shoulders, bilateral knee, bilateral ankle, bilateral foot, lumbar spine and SI joints. Electronically signed by: Kishore Barba MD 05/14/2025 07:35 AM [facility]
--- NOTE | ~2025-05-13 | XR_ITS ---
EXAMINATION: Left wrist, bilateral hands, bilateral foot, bilateral ankle and bilateral knee, bilateral shoulder, lumbar spine and SI joints. CLINICAL INDICATION: Osteoarthritis. COMPARISON: Right hand and right wrist 11/18/2024 FINDINGS: Left wrist 3 views: The radial ulnar carpal, intercarpal and carpometacarpal joint spaces preserved. No bony erosive changes, osteophytes, fracture seen. No abnormal joint effusion seen. Left hand 4 views: The MCP and interphalangeal joint spaces are maintained normal. No bony erosive changes, fracture, dislocation or bony erosive changes. The soft tissues are normal. There is an old injury phalangeal tuft third digit. Bilateral shoulders: There is mild reduction in bilateral glenohumeral joint space. No bony erosive changes, loose bodies or soft tissue calcification seen. There is a sclerotic round density right humeral neck likely small bone island. Bilateral knee: 2 views of each knee were obtained. The tricompartment joint space of both knees is maintained. No visible fracture or dislocation seen. There is a small anterior spur and disc heights along the superior patella both knees. No joint effusion seen. No bony erosive changes or loose bodies. Bilateral ankle 3 views each. The ankle mortise and subtalar joints of both knees are maintained normal. No bony erosive changes, soft tissue calcifications are loose bodies seen. No acute fracture or dislocation. The soft tissues are normal. Bilateral foot 3 views each. Visualized tarsal metatarsal, metatarsophalangeal and third phalangeal joint spaces are maintained normal. No bony erosive changes, loose bodies or soft tissue swelling. Lumbar spine 3 views: There is normal lumbar lordosis. The vertebral heights, alignment and disc heights are normal. There is mild ventral spondylosis at the L3-4, L4-5 and L5-S1 disc levels. No aggressive lytic or sclerotic process seen. The soft tissues are normal. SI joints: The SI joints are symmetrical and normal. No bony erosive changes, sclerosis seen. Visualized pelvic bones are grossly unremarkable as well. XR/XR Ankle David min 3V IMPRESSION: Unremarkable left hand and left wrist. Unremarkable bilateral shoulders, bilateral knee, bilateral ankle, bilateral foot, lumbar spine and SI joints. Electronically signed by: Kishore Barba MD 05/14/2025 07:35 AM [facility] - [place]
--- NOTE | ~2025-05-13 | XR_ITS ---
EXAMINATION: Left wrist, bilateral hands, bilateral foot, bilateral ankle and bilateral knee, bilateral shoulder, lumbar spine and SI joints. CLINICAL INDICATION: Osteoarthritis. COMPARISON: Right hand and right wrist 11/18/2024 FINDINGS: Left wrist 3 views: The radial ulnar carpal, intercarpal and carpometacarpal joint spaces preserved. No bony erosive changes, osteophytes, fracture seen. No abnormal joint effusion seen. Left hand 4 views: The MCP and interphalangeal joint spaces are maintained normal. No bony erosive changes, fracture, dislocation or bony erosive changes. The soft tissues are normal. There is an old injury phalangeal tuft third digit. Bilateral shoulders: There is mild reduction in bilateral glenohumeral joint space. No bony erosive changes, loose bodies or soft tissue calcification seen. There is a sclerotic round density right humeral neck likely small bone island. Bilateral knee: 2 views of each knee were obtained. The tricompartment joint space of both knees is maintained. No visible fracture or dislocation seen. There is a small anterior spur and disc heights along the superior patella both knees. No joint effusion seen. No bony erosive changes or loose bodies. Bilateral ankle 3 views each. The ankle mortise and subtalar joints of both knees are maintained normal. No bony erosive changes, soft tissue calcifications are loose bodies seen. No acute fracture or dislocation. The soft tissues are normal. Bilateral foot 3 views each. Visualized tarsal metatarsal, metatarsophalangeal and third phalangeal joint spaces are maintained normal. No bony erosive changes, loose bodies or soft tissue swelling. Lumbar spine 3 views: There is normal lumbar lordosis. The vertebral heights, alignment and disc heights are normal. There is mild ventral spondylosis at the L3-4, L4-5 and L5-S1 disc levels. No aggressive lytic or sclerotic process seen. The soft tissues are normal. SI joints: The SI joints are symmetrical and normal. No bony erosive changes, sclerosis seen. Visualized pelvic bones are grossly unremarkable as well. XR/XR Shoulder David min 2V IMPRESSION: Unremarkable left hand and left wrist. Unremarkable bilateral shoulders, bilateral knee, bilateral ankle, bilateral foot, lumbar spine and SI joints. Electronically signed by: Kishore Barba MD 05/14/2025 07:35 AM [facility]
== END 2025-05-13 14:00 | disposition home or self-care (01) ==
LOC: HO.XRAY 13:59
PROVIDERS: PCP Internal Medicine; Visit Provider Student in an Organized Health Care Education/Training Program
DX: M19.90 Unspecified osteoarthritis, unspecified site (principal); M10.9 Gout, unspecified
CPT/HCPCS: 72100; 72200; 73030; 73110; 73130; 73560; 73610; 73630

== ENCOUNTER → 2025-05-13 15:25 | Outpatient (BNV) | payer MEDICAID, SELFPAY | PROVIDERS: PCP Internal Medicine; Visit Provider Radiology Diagnostic Radiology | DX: M47.816 Spondylosis without myelopathy or radiculopathy, lumbar region (principal); M19.012 Primary osteoarthritis, left shoulder; M19.011 Primary osteoarthritis, right shoulder; M17.0 Bilateral primary osteoarthritis of knee; M46.1 Sacroiliitis, not elsewhere classified; M19.042 Primary osteoarthritis, left hand; M19.032 Primary osteoarthritis, left wrist; M19.071 Primary osteoarthritis, right ankle and foot; M19.072 Primary osteoarthritis, left ankle and foot | CPT/HCPCS: 72100; 72200; 73030; 73110; 73130; 73560; 73610; 73630 ==